=== PATIENT | male | born 1935 | race Asian ===

== ENCOUNTER 2017-07-28 13:51 | Inpatient (IN) | payer OTHER ==
[~2017-07-28] VITALS: Ht 172.7 cm; Wt 91.3 kg
[2017-07-28] MEDS ORDERED: ONDANSETRON 4 MG INJ IV STA (15:57)
[2017-07-28] MEDS ORDERED: KETOROLAC 15 MG INJ IV STA (15:57)
[2017-07-28] MEDS ORDERED: SOD CHLORIDE 0.9% 1,000 ML IV STA (15:57)
[2017-07-28 16:55] LABS: ABNORMAL IP MESSAGE 1; HEMATOCRIT 19.5 % (42.0-52.0); MEAN CORPUSCULAR HEMOGLOBIN 31.1 pg (29.0-33.0); MEAN CORPUSCULAR HGB CONC 33.8 g/dl (32.0-37.0); MEAN PLATELET VOLUME 11.7 fl (7.4-10.4); NUCLEATED RED BLOOD CELLS% 1.6 /100WBC (0.0-0.0); PLATELET COUNT 181 10^3/UL (140-415); POSITIVE DIFF @See below; RED BLOOD COUNT 2.12 10^6/ul (4.70-6.10); RED CELL DISTRIBUTION WIDTH 13.8 % (11.5-14.5); WHITE BLOOD COUNT 8.9 10^3/ul (4.8-10.8)
--- NOTE | 2017-07-28 16:59 | RADRPT ---
PROCEDURE: XR Chest. CLINICAL INDICATION: Abdominal pain . Chest pain TECHNIQUE: Single frontal chest x-ray. COMPARISON: None. FINDINGS: The lungs are clear of acute infiltrates, edema, effusions, or masses. Calcific atherosclerosis of t he aorta is present.. The cardiomediastinal silhouette is unremarkable. The osseous structures are intact. IMPRESSION: No acute cardiopulmonary disease. RPTAT: RR .Bipin Johns MD, MD Date Time Electronically viewed and signed by .Bipin Johns MD, on 07/28/2017 16:59 .L/
[2017-07-28 17:01] LABS: HEMOGLOBIN 6.6 g/dl (14.0-18.0)
[2017-07-28 17:02] LABS: PATH REVIEW? YES
--- NOTE | 2017-07-28 17:09 | RADRPT ---
PROCEDURE: XR pelvis CLINICAL INDICATION: Pelvic pain TECHNIQUE: AP portable view of the pelvis COMPARISON: None available FINDINGS: The soft tissues are unremarkable. No evidence of acute fracture or dislocation, though the proximal femurs/hips are not assessed optim ally on this single view. Spondylosis of the lower lumbar spine. Atherosclerotic vascular calcifications. IMPRESSION: 1. No evidence of acute fracture, though the proximal femurs/hips are not optimally assessed on thi s single image RPTAT: TT Physician Delmi Date Time Electronically viewed and signed by Christelle Rush Physician on 07/28/2017 17:09 JS/
--- NOTE | 2017-07-28 17:09 | ERD ---
ER Documentation Chief Complaint Chief Complaint dizziness & back pain x2 wks, denies injury HPI 81-year-old man brought in by daughter for complaints of dizziness 2 weeks and 3 days of black tarry stool, denies bright red blood per rectum. He states he fell 2 weeks ago on his low back pain as well. Patient denies dysuria, no hematuria, no fevers or chills, no weight loss, no vomiting or diarrhea. Patient denies chest pain. Patient denies history of alcoholism or other medical conditions. ROS All systems reviewed and are negative except as per history of present illness. Allergies Allergies: Coded Allergies: No Known Allergy (Unverified , 07/28/17) PMhx/Soc Hypertension, diabetes mellitus, history of TIAs Medical and Surgical Hx: pt denies Surgical Hx Hx Alcohol Use: No Hx Substance Use: No Hx Tobacco Use: No Smoking Status: Unknown if ever smoked FmHx Family History: No diabetes Physical Exam Vitals Vital Signs Date Time Temp Pulse Resp B/P Pulse Ox O2 Delivery O2 Flow Rate FiO2 07/28/17 15:51 86 24 154/64 99 Room Air 07/28/17 13:56 97.0 98 18 121/58 98 Physical Exam GENERAL: Well-developed, well-nourished, appears dehydrated, afebrile HEENT: Dry mucous membranes, pale conjunctiva, no cervical spine tenderness or step-off deformities, no goiter, no jaundice or icterus, extraocular movements intact without pain. No submandibular induration, and no pharyngeal erythema NEURO: Alert and oriented 3, cranial nerves II through XII intact bilaterally, pupils equal round reactive to light, no focal deficits or facial asymmetry, sensation intact distally Strength 5/5 in upper and lower extremities bilaterally CARDIAC: Regular rate and rhythm, no murmurs rubs or gallops LUNGS: Clear bilaterally no wheezing crackles or stridor ABDOMEN: Soft nontender, no guarding, no rigidity, no rebound, no psoas sign no obturator sign. Normoactive bowel sounds SKIN: Warm and dry to touch, no abrasions, contusions, or hematomas, no lacerations, no ecchymosis, no target lesions, and without ulcers EXTREMITIES: No clubbing cyanosis or edema, calves are bilaterally symmetrical, no Homans sign, no popliteal cord sign. Distal pulses equal and bilateral PSYCH: Normal affect without agitation or irritability Result Diagram: 07/28/17 1600 07/28/17 1600 Results 24 hrs Laboratory Tests Test 07/28/17 16:00 07/28/17 16:55 White Blood Count 8.910^3/ul Red Blood Count 2.1210^6/ul Hemoglobin 6.6g/dl Hematocrit 19.5% Mean Corpuscular Volume 92.0fl Mean Corpuscular Hemoglobin 31.1pg Mean Corpuscular Hemoglobin Concent 33.8g/dl Red Cell Distribution Width 13.8% Platelet Count 24661^3/UL Mean Platelet Volume 11.7fl Neutrophils % % Segmented Neutrophils % (Manual) 76% Band Neutrophils % (Manual) 4% Lymphocytes % % Lymphocytes % (Manual) 11% Monocytes % % Monocytes % (Manual) 6% Eosinophils % % Basophils % % Basophils % (Manual) 1% Metamyelocytes % (manual) 1% Myelocytes % (Manual) 1% Nucleated Red Blood Cells % 3% Neutrophils # 10^3/ul Neutrophils # (Manual) 6.810^3/ul Band Neutrophils # 0.310^3/ul Absolute Lymphocytes (Manual) 0.910^3/ul Lymphocytes # 10^3/ul Monocytes # 10^3/ul Absolute Monocytes (Manual) 0.510^3/ul Eosinophils # 10^3/ul Basophils # 10^3/ul Basophils # (Manual) 0.010^3/ul Metamyelocytes # 0.010^3/ul Myelocytes # 0.010^3/ul Nucleated Red Blood Cells # 10^3/ul Pathologist Review (Hematology) YES Platelet Estimate NORMAL Polychromasia 2+ Hypochromasia 1+ Anisocytosis 1+ Macrocytosis 1+ Prothrombin Time 13.6Sec Prothrombin Time Ratio 1.1 INR International Normalized Ratio 1.04 Sodium Level 134mmol/L Potassium Level 4.6mmol/L Chloride Level 100mmol/L Carbon Dioxide Level 23mmol/L Anion Gap 16 Blood Urea Nitrogen 51mg/dl Creatinine 1.24mg/dl Glucose Level 466mg/dl Calcium Level 9.0mg/dl Total Bilirubin 0.3mg/dl Direct Bilirubin 0.00mg/dl Indirect Bilirubin 0.3mg/dl Aspartate Amino Transf (AST/SGOT) 21IU/L Alanine Aminotransferase (ALT/SGPT) 32IU/L Alkaline Phosphatase 61IU/L Troponin I 1.440ng/ml Total Protein 5.8g/dl Albumin 3.1g/dl Globulin 2.70g/dl Albumin/Globulin Ratio 1.14 Lipase 129U/L Urine Color YELLOW Urine Clarity CLEAR Urine pH 5.0 Urine Specific [place] 1.017 Urine Ketones NEGATIVEmg/dL Urine Nitrite NEGATIVEmg/dL Urine Bilirubin NEGATIVEmg/dL Urine Urobilinogen NEGATIVEmg/dL Urine Leukocyte Esterase NEGATIVELeu/ul Urine Hemoglobin NEGATIVEmg/dL Urine Glucose 3+mg/dL Urine Total Protein NEGATIVEmg/dl Current Medications Medications (Trade) Dose Ordered Sig/Payal Route PRN Reason Start Time Stop Time Status Last Admin Dose Admin Sodium Chloride (NS) 1,000 ml @ 1,000 mls/hr Q1H STAT IV 07/28/17 15:57 07/28/17 16:56 DC 07/28/17 15:57 Ondansetron HCl (Zofran Inj) 4 mg ONCE STAT IV 07/28/17 15:57 07/28/17 15:59 DC 07/28/17 15:57 Ketorolac Tromethamine (Toradol) 15 mg ONCE STAT IV 07/28/17 15:57 07/28/17 16:16 DC Pantoprazole (Protonix Iv) 40 mg ONCE ONCE IV 07/28/17 17:30 07/28/17 17:31 DC 07/28/17 17:34 Procedures/MDM IV line was established patient was placed on media monitor rhythm strip revealed a sinus rhythm at about 80 bpm with upright P and T waves. Patient was afebrile EKG performed, read by me: 86 bpm, normal sinus rhythm, normal axis, no acute ST segment changes, narrow QRS complex, with good R-wave progression in precordial leads. Chest X-ray 1V Interpreted by me: Soft Tissue: No acute abnormalities Bones: No acute abnormalities Mediastinum/Cardiac Silhouette/Lungs: No acute abnormalities One view pelvis x-ray performed, read by me there are no acute fractures or dislocations noted. Three-view x-ray of the lumbar spine performed, read by me, no acute fracture or dislocations noted. I administered 1 L normal saline intravenously and Zofran 4 mg IV for dizziness. I also administered pantoprazole 40 mg IV 1 for possible hemorrhaging gastritic ulcer. CBC revealed anemia with a hemoglobin of 6.6, electrolytes revealed dehydration and uremia with a BUN/creatinine of 51/1.2, hyperglycemia 466, liver function tests are normal, troponin was positive at 1.4 I also ordered transfusion of 2 units PRBC IV over 4 hours for symptomatic anemia, patient and family refused transfusion. Critical Care: Time: 40 minutes, this was time separate from other billable procedures. Treatments/Evaluations: Close monitoring and treatment of unstable vital signs, cardiorespiratory, and neurologic status, while maintaining tight balance of fluid, respiratory, and cardiac interventions. Patient will be admitted to telemetry setting for continued medical management and GI consultation, he may require upper endoscopy to rule out hemorrhaging gastric ulcer. Patient is without complaints of chest pain and I deferred aspirin therapy at this time due to recent melena and high likelihood of bleeding gastric ulcer. Departure Diagnosis: Primary Impression: Symptomatic anemia Additional Impressions: Gastric ulcer Gastric ulcer chronicity: acute Gastric ulcer complication status: with hemorrhage Qualified Code: K25.0 - Acute gastric ulcer with hemorrhage Non-STEMI (non-ST elevated myocardial infarction) Dehydration Acute hyperglycemia Condition: Serious DEMETRIA BOLIVAR MD Jul 28, 2017 17:09
[2017-07-28 17:11] LABS: INR 1.04; PROTIME 13.6 Sec (12.2-14.2); PT RATIO 1.1
[2017-07-28 17:14] LABS: ALBUMIN 3.1 g/dl (3.3-4.9); ALBUMIN/GLOBULIN RATIO 1.14; BILIRUBIN,INDIRECT 0.3 mg/dl (0-1.1); BILIRUBIN,TOTAL 0.3 mg/dl (0.2-1.3); CREATININE 1.24 mg/dl (0.61-1.24); POTASSIUM 4.6 mmol/L (3.5-5.1); TOTAL PROTEIN 5.8 g/dl (6.1-8.1)
--- NOTE | 2017-07-28 17:15 | RADRPT ---
PROCEDURE: XR lumbar spine CLINICAL INDICATION: Pain TECHNIQUE: AP, lateral, and cone-down lateral portable views of the lumbar spine COMPARISON: AP pelvis 07/28/2017 FINDINGS: L1 vertebral body compression fracture with slight retropulsion of the posterior component is of unc ertain etiology and chronicity. Slight retrolisthesis of L4 with respect to L5. Slight retrolisthes is of L3 with respect to L III. L4-5 and L5-S1 facet arthropathy. Lower thoracic and lumbar spine spondylosis including multilevel endplate small osteophytes. Suspect diffuse demineralization of the osseous structures. Atherosclerotic vascular calcifications IMPRESSION: 1. L1 vertebral body compression fracture of uncertain etiology and chronicity. 2. Lower thoracic and lumbar spine spondylosis. Multilevel mild spondylolistheses. Compare to prior corresponding imaging studies. RPTAT: TT Physician Delmi Date Time Electronically viewed and signed by Physician Delmi on 07/28/2017 17:14 JS/
[2017-07-28 17:29] LABS: ADD UMIC NO; UR ASCORBIC ACID NEGATIVE (NEGATIVE); UR BILIRUBIN (Dip) NEGATIVE (NEGATIVE); UR BLOOD (Dip) NEGATIVE (NEGATIVE); UR CLARITY CLEAR (CLEAR); UR COLOR YELLOW (YELLOW); UR GLUCOSE (Dip) 3+ mg/dL (NEGATIVE); UR KETONES (Dip) NEGATIVE (NEGATIVE); UR LEUKOCYTE ESTERASE (Dip) NEGATIVE Leu/ul (NEGATIVE); UR NITRITE (Dip) NEGATIVE (NEGATIVE); UR SPECIFIC GRAVITY (Dip) 1.017 (1.003-1.030); UR TOTAL PROTEIN (Dip) NEGATIVE (NEGATIVE); UR UROBILINOGEN (Dip) NEGATIVE (NEGATIVE)
[2017-07-28 17:29] LABS: TROPONIN-I 1.44 ng/ml (0.00-0.12)
[2017-07-28] MEDS ORDERED: PANTOPRAZOLE 40 MG INJ IV ONE (17:30)
[2017-07-28 18:30] VITALS: BP 130/56; PULSE 88; RESP 18
[2017-07-28 18:33] LABS: ANISOCYTOSIS 1+ (0-0); BASOPHILS % (M) 1 % (0-2); ERYTHROBLAST% (NRBC) (M) 3 % (0-0); HYPOCHROMASIA 1+ (0-0); METAMYELOCYTES %M 1 % (0-0); MONOCYTES % (M) 6 % (0-11); MYELOCYTES % (M) 1 % (0-0); PLATELET ESTIMATE NORMAL; POLYCHROMASIA 2+ (0-0)
[2017-07-28 18:48] VITALS: PULSE 84
--- NOTE | 2017-07-28 19:16 | CONS ---
Date/Time of Note Date/Time of Note DATE: 07/28/17 TIME: 19:10 Assessment/Plan Assessment/Plan Chief Complaint/Hosp Course 1. NSTEMI 2. GI bleed 3. HTN 4. DM 5. Severe anemia due to above 6. dyslipidemia 7. hx TIA 8. HX of poor compliance Recommendations: Transfusion orders has been given already in the emergency room. We will hold off on aspirin not given his active GI bleed. Protonix was given. GI recommended as per internal medicine. Consider GI consultation as well. I will start the patient on carvedilol for now. Diabetic management/insulin as per internal medicine. Echocardiogram will be obtained. Follow-up with H&H. Will defer to internal medicine team. Patient currently remains chest pain-free. We will continue to monitor on telemetry We will repeat cardiac enzymes including CK and CK-MB. Thank you for his referral will continue to follow along with you. ADELFO CHOE MD [facility] Problems: Consultation Date/Type/Reason Admit Date/Time Jul 28, 2017 at 17:35 Date of Consultation: Jul 28, 2017 Type of Consultation: cardiology Reason for Consultation + trop Referring Provider: AMBER FINLEY Hx of Present Illness CC: LBP. S/P FALL HPI: Thank you for his referral. History was obtained from the patient most from discussion with his daughter who is a good historian. She also translated for me. Discussed in the physician and staff including Dr Finley. This is a pleasant 81-year-old Italian gentleman with history of diabetes who came to emergency room of complaint. Patient is apparently fell about 2 weeks ago has had lower back pain which got worse finally came to emergency room. In the emergency room he was noted to also have had melena for the past 3 days. He also complained of dizziness lightheadedness. He denies any chest pain or pressure however his troponin has been positive as well. His hemoglobin is markedly low although his blood pressures remain stable. Allergies no reported drug allergies Medication At Home: He does not remember. He has been on aspirin apparently however he is stopped it 3 days ago once he started having melena. According to the daughter patient has not been very compliant with his medication. Social history does not smoke or drink moment. Apparently he does not like to see doctors and does not go to doctors much. Family say no reported early coronary artery disease Past medical history: HTN DM HX TIA dyslipidemia ROS: As above only he denies all others. Social History Smoking Status: Unknown if ever smoked Exam/Review of Systems Vital Signs Vitals Vital Signs Date Time Temp Pulse Resp B/P Pulse Ox O2 Delivery O2 Flow Rate FiO2 07/28/17 15:51 86 24 154/64 99 Room Air 07/28/17 13:56 97.0 Exam General: obese no acute distress HEENT: NC/AT. pupils are equal. round. NECK: NO JVD. no stridor. CV: RRR. systolic murmur; no gallop or rubs. PULM: no wheezing or rhonchi. GI: SOFT, NT, ND, no rebound or guarding Extremity: trace B/L LE edema. no clubbing. neuro: awake and alert, OX3. Psych: calm and pleasant rectal: deferred DERM: Multiple diffuse ecchymosis. EG reviewed; NSR. Nonspecific ST-T wave abnormalities Results Result Diagram: 07/28/17 1600 07/28/17 1600 Results 24 hrs Laboratory Tests Test 07/28/17 16:00 07/28/17 16:55 White Blood Count 8.9 Red Blood Count 2.12 L Hemoglobin 6.6 *L Hematocrit 19.5 L Mean Corpuscular Volume 92.0 Mean Corpuscular Hemoglobin 31.1 Mean Corpuscular Hemoglobin Concent 33.8 Red Cell Distribution Width 13.8 Platelet Count 181 Mean Platelet Volume 11.7 H Neutrophils % Segmented Neutrophils % (Manual) 76 Band Neutrophils % (Manual) 4 Lymphocytes % Lymphocytes % (Manual) 11 L Monocytes % Monocytes % (Manual) 6 Eosinophils % Basophils % Basophils % (Manual) 1 Metamyelocytes % (manual) 1 H Myelocytes % (Manual) 1 H Nucleated Red Blood Cells % 3 H Neutrophils # Neutrophils # (Manual) 6.8 Band Neutrophils # 0.3 Absolute Lymphocytes (Manual) 0.9 Lymphocytes # Monocytes # Absolute Monocytes (Manual) 0.5 Eosinophils # Basophils # Basophils # (Manual) 0.0 Metamyelocytes # 0.0 Myelocytes # 0.0 Nucleated Red Blood Cells # Pathologist Review (Hematology) YES Platelet Estimate NORMAL Polychromasia 2+ Hypochromasia 1+ Anisocytosis 1+ Macrocytosis 1+ Prothrombin Time 13.6 Prothrombin Time Ratio 1.1 INR International Normalized Ratio 1.04 Sodium Level 134 L Potassium Level 4.6 Chloride Level 100 Carbon Dioxide Level 23 Anion Gap 16 Blood Urea Nitrogen 51 H Creatinine 1.24 Glucose Level 466 *H Calcium Level 9.0 Total Bilirubin 0.3 Direct Bilirubin 0.00 Indirect Bilirubin 0.3 Aspartate Amino Transf (AST/SGOT) 21 Alanine Aminotransferase (ALT/SGPT) 32 Alkaline Phosphatase 61 Troponin I 1.440 *H Total Protein 5.8 L Albumin 3.1 L Globulin 2.70 Albumin/Globulin Ratio 1.14 Lipase 129 Urine Color YELLOW Urine Clarity CLEAR Urine pH 5.0 Urine Specific [place] 1.017 Urine Ketones NEGATIVE Urine Nitrite NEGATIVE Urine Bilirubin NEGATIVE Urine Urobilinogen NEGATIVE Urine Leukocyte Esterase NEGATIVE Urine Hemoglobin NEGATIVE Urine Glucose 3+ H Urine Total Protein NEGATIVE ADELFO CHOE MD Jul 28, 2017 19:16
[2017-07-28] MEDS ORDERED: INSULIN ASPART [NOVOLOG] 3 ML PEN SC ONE (19:30)
[2017-07-28] MEDS ORDERED: GLUCOSE GEL 15 GRAM TUBE PO PRN ×2 (19:30)
[2017-07-28] MEDS ORDERED: GLUCAGON 1 MG INJ IM PRN (19:30)
[2017-07-28] MEDS ORDERED: DEXTROSE 50% 50 ML SYRINGE IV PRN ×2 (19:30)
[2017-07-28] MEDS ORDERED: GLUCOSE GEL 15 GRAM TUBE BUCCAL PRN (19:30)
--- NOTE | 2017-07-28 19:40 | HP ---
Date/Time of Note Date/Time of Note DATE: 07/28/17 TIME: 18:33 Assessment/Plan Assessment/Plan Assessment/Plan -Dizziness -Admit to telemetry floor -Cardiology consult, Dr. Cook informed -IV fluids normal saline at 50 cc/h -Symptomatic anemia-secondary to GI bleed -N.p.o. -GI consult Dr. rocha informed -PRBC transfusion -Procrit 10,000 units subcu 1 -Folic acid 125 mg daily 3 days -Gastric ulcer -Protonix 40 mg IV twice daily -Diabetes mellitus -We will give Lantus 15 units subcu nightly -NovoLog 7 units subcu 1 -NovoLog insulin mild sliding scale -SCDs for DVT prophylaxis-will hold aspirin or anticoagulant due to GI bleed -Protonix for GI prophylaxis HPI/ROS Admit Date/Time Admit Date/Time Hx of Present Illness HPI Patient speaks Latvian, daughter at the bedside used as a transportation lead. A- no home meds recorded yet 81-year-old man brought in by daughter for complaints of dizziness 2 weeks and 3 days of black tarry stool, denies bright red blood per rectum. He states he fell 2 weeks ago on his low back pain as well. Patient denies dysuria, no hematuria, no fevers or chills, no weight loss, no vomiting or diarrhea. Patient denies history of alcoholism or other medical conditions. ROS ll systems reviewed and are negative except as per history of present illness. Allergies Allergies: Coded Allergies: No Known Allergy (Unverified , 07/28/17) ROS Respiratory: no complaints Cardiovascular: no complaints Gastrointestinal: pain Genitourinary: no complaints Musculoskeletal: no complaints PMH/Family/Social Past Medical History PMhx/Soc None Medical and Surgical Hx: pt denies Surgical Hx Hx Alcohol Use: No Hx Substance Use: No Hx Tobacco Use: No Smoking Status: Unknown if ever smoked FmHx Family History: No diabetes Social History Smoking Status: Unknown if ever smoked Exam/Review of Systems Vital Signs Vitals Vital Signs Date Time Temp Pulse Resp B/P Pulse Ox O2 Delivery O2 Flow Rate FiO2 07/28/17 15:51 86 24 154/64 99 Room Air 07/28/17 13:56 97.0 Labs Result Diagram: 07/28/17 1600 07/28/17 1600 AMBER FINLEY Jul 28, 2017 18:43
[2017-07-28] MEDS ORDERED: SOD CHLORIDE 0.9% 250 ML IV* ONE (19:57)
[2017-07-28 20:00] VITALS: PULSE 82; Ht 172.7 cm; Wt 91.3 kg
[2017-07-28 20:19] VITALS: BP 130/59; RESP 16
[2017-07-28] MEDS ORDERED: EPOETIN 10000 UNITS/1 ML INJ (ESRD) SC SCH (21:00)
[2017-07-28] MEDS ORDERED: EPOETIN 10000 UNITS/1 ML INJ (ESRD) SC ONE (21:00)
[2017-07-28 21:32] LABS: CK-MB 5.57 ng/ml (0.0-2.4); TROPONIN-I 1.07 ng/ml (0.00-0.12)
[2017-07-28] MEDS: SOD FERRIC GLUC COMPLX 125 MG in SOD CHLORIDE 0.9% 100 ML IVPB SCH (22:01)
[2017-07-28] MEDS: SOD CHLORIDE 0.9% 1,000 ML IV SCH (22:02)
[2017-07-28] MEDS: INSULIN GLARGINE [LANtus] 3 ML PEN SC SCH (22:03)
[2017-07-28] MEDS: INSULIN ASPART [NOVOLOG] 3 ML PEN SC SCH (22:04)
[2017-07-29] VITALS (11 sets, daily range): BP systolic 127–142; BP diastolic 58–64; PULSE 68–92; RESP 16–18
[2017-07-29] MEDS ORDERED: ACCU-CHEK XX SCH (02:00)
[2017-07-29] MEDS: INSULIN ASPART [NOVOLOG] 3 ML PEN SC SCH ×5 (07:39→20:14)
[2017-07-29 09:27] LABS: BASOPHILS % 0.1 % (0.0-2.0); EOSINOPHILS # 0.1 10^3/ul (0.0-0.5); EOSINOPHILS % 1.6 % (0.0-7.0); HEMATOCRIT 21.1 % (42.0-52.0); HEMOGLOBIN 7.1 g/dl (14.0-18.0); LYMPHOCYTES # 1.5 10^3/ul (0.8-2.9); LYMPHOCYTES % 22.5 % (15.0-51.0); MEAN CORPUSCULAR HEMOGLOBIN 30.9 pg (29.0-33.0); MEAN CORPUSCULAR HGB CONC 33.6 g/dl (32.0-37.0); MEAN CORPUSCULAR VOLUME 91.7 fl (82.0-101.0); MEAN PLATELET VOLUME 10.9 fl (7.4-10.4); MONOCYTE # 0.8 10^3/ul (0.3-0.9); NEUTROPHIL # 4.1 10^3/ul (1.6-7.5); NEUTROPHILS % 59.8 % (39.0-77.0); NUCLEATED RED BLOOD CELLS # 0.1 10^3/ul (0.0-0.0); NUCLEATED RED BLOOD CELLS% 1.6 /100WBC (0.0-0.0); PLATELET COUNT 137 10^3/UL (140-415); RED CELL DISTRIBUTION WIDTH 14.1 % (11.5-14.5); WHITE BLOOD COUNT 6.8 10^3/ul (4.8-10.8)
[2017-07-29 09:43] LABS: INR 0.99; PARTIAL THROMBOPLASTIN TIME 28.4 Sec (25.0-35.0); PROTIME 13.1 Sec (12.2-14.2)
[2017-07-29 09:48] LABS: CK-MB 3.29 ng/ml (0.0-2.4); TROPONIN-I 1.32 ng/ml (0.00-0.12)
[2017-07-29 14:42] LABS: HEMATOCRIT 23.7 % (42.0-52.0); HEMOGLOBIN 8.1 g/dl (14.0-18.0)
--- NOTE | 2017-07-29 14:57 | PN ---
Date/Time of Note Date/Time of Note DATE: 07/29/17 TIME: 14:54 Assessment/Plan VTE Prophylaxis VTE Prophylaxis Intervention: SCD's Lines/Catheters IV [facility] Peripheral IV Urinary Cath still in place: No Assessment/Plan Chief Complaint/Hosp Course Patient is awake alert denies shortness of breath denies any chest pain. Patient's condition and plan of care discussed with patient daughter at the bedside. Pending endoscopy tomorrow in the morning. Problems: Assessment/Plan - NSTEMI. Dr. Cook is following in cardiology consultation - GI bleed. Continue Protonix. Dr. Grove is following in gastroenterology consultation. Pending endoscopy tomorrow - Anemia of acute blood loss, s/p blood transfusion. continue to monitor hemoglobin and hematocrit. - HTN - DM hemoglobin A1c 8.5. Continue NovoLog per sliding scale with Accu-Chek every 4 hours. - Dyslipidemia Further recommendations based on clinical course. Plan of care discussed with Dr. Oglesby. Exam/Review of Systems Vital Signs Vitals Vital Signs Date Time Temp Pulse Resp B/P Pulse Ox O2 Delivery O2 Flow Rate FiO2 07/29/17 13:22 71 07/29/17 07:43 98.7 18 132/61 96 07/28/17 18:30 Room Air Intake and Output 07/28/17 07/28/17 07/29/17 15:00 23:00 07:00 Intake Total 800 ml Output Total 800 ml Balance 0 ml Exam Constitutional: alert, oriented Head: normocephalic Neck: supple Respiratory: normal air movement Cardiovascular: nl pulses, regular rate and rhythm Gastrointestinal: non-tender, soft Musculoskeletal: nl extremities to inspection Extremities: normal pulses Results Result Diagram: 07/29/17 1410 07/28/17 1600 Results 24 hrs Laboratory Tests Test 07/28/17 16:00 07/28/17 16:55 07/28/17 20:13 07/28/17 21:14 White Blood Count 8.9 Red Blood Count 2.12 L Hemoglobin 6.6 *L Hematocrit 19.5 L Mean Corpuscular Volume 92.0 Mean Corpuscular Hemoglobin 31.1 Mean Corpuscular Hemoglobin Concent 33.8 Red Cell Distribution Width 13.8 Platelet Count 181 Mean Platelet Volume 11.7 H Neutrophils % Segmented Neutrophils % (Manual) 76 Band Neutrophils % (Manual) 4 Lymphocytes % Lymphocytes % (Manual) 11 L Monocytes % Monocytes % (Manual) 6 Eosinophils % Basophils % Basophils % (Manual) 1 Metamyelocytes % (manual) 1 H Myelocytes % (Manual) 1 H Nucleated Red Blood Cells % 3 H Neutrophils # Neutrophils # (Manual) 6.8 Band Neutrophils # 0.3 Absolute Lymphocytes (Manual) 0.9 Lymphocytes # Monocytes # Absolute Monocytes (Manual) 0.5 Eosinophils # Basophils # Basophils # (Manual) 0.0 Metamyelocytes # 0.0 Myelocytes # 0.0 Nucleated Red Blood Cells # Pathologist Review (Hematology) YES Platelet Estimate NORMAL Polychromasia 2+ Hypochromasia 1+ Anisocytosis 1+ Macrocytosis 1+ Prothrombin Time 13.6 Prothrombin Time Ratio 1.1 INR International Normalized Ratio 1.04 Sodium Level 134 L Potassium Level 4.6 Chloride Level 100 Carbon Dioxide Level 23 Anion Gap 16 Blood Urea Nitrogen 51 H Creatinine 1.24 Glucose Level 466 *H Calcium Level 9.0 Total Bilirubin 0.3 Direct Bilirubin 0.00 Indirect Bilirubin 0.3 Aspartate Amino Transf (AST/SGOT) 21 Alanine Aminotransferase (ALT/SGPT) 32 Alkaline Phosphatase 61 Troponin I 1.440 *H 1.070 *H Total Protein 5.8 L Albumin 3.1 L Globulin 2.70 Albumin/Globulin Ratio 1.14 Lipase 129 Urine Color YELLOW Urine Clarity CLEAR Urine pH 5.0 Urine Specific [place] 1.017 Urine Ketones NEGATIVE Urine Nitrite NEGATIVE Urine Bilirubin NEGATIVE Urine Urobilinogen NEGATIVE Urine Leukocyte Esterase NEGATIVE Urine Hemoglobin NEGATIVE Urine Glucose 3+ H Urine Total Protein NEGATIVE Creatine Kinase 52 Creatine Kinase Index 10.7 Creatinine Kinase MB (Mass) 5.57 H Bedside Glucose 256 H Test 07/29/17 02:33 07/29/17 07:39 07/29/17 07:57 07/29/17 11:40 Bedside Glucose 184 129 115 White Blood Count 6.8 # Red Blood Count 2.30 L Hemoglobin 7.1 L Hematocrit 21.1 L Mean Corpuscular Volume 91.7 Mean Corpuscular Hemoglobin 30.9 Mean Corpuscular Hemoglobin Concent 33.6 Red Cell Distribution Width 14.1 Platelet Count 137 #L Mean Platelet Volume 10.9 H Neutrophils % 59.8 Lymphocytes % 22.5 Monocytes % 11.0 Eosinophils % 1.6 Basophils % 0.1 Nucleated Red Blood Cells % 1.6 H Neutrophils # 4.1 Lymphocytes # 1.5 Monocytes # 0.8 Eosinophils # 0.1 Basophils # 0.0 Nucleated Red Blood Cells # 0.1 H Prothrombin Time 13.1 Prothrombin Time Ratio 1.0 INR International Normalized Ratio 0.99 Activated Partial Thromboplast Time 28.4 Hemoglobin A1c 8.5 H Creatine Kinase 34 Creatine Kinase Index 9.7 Creatinine Kinase MB (Mass) 3.29 H Troponin I 1.320 *H Free Thyroxine 1.16 Test 07/29/17 14:10 Hemoglobin 8.1 L Hematocrit 23.7 L Medications Medications Current Medications Sodium Chloride (NS) 1,000 ml @ 50 mls/hr Q20H IV Last administered on 22:02; Admin Dose 50 MLS/HR; Start 07/28/17 at 19:30 Diagnostic Test (Pha) (Accu-Chek) 1 ea 02 XX ; Start 07/29/17 at 02:00 Insulin Glargine 15 unit 15 unit QHS SC Last administered on 07/28/17 22:03; Admin Dose 15 UNIT; Start 07/28/17 at 21:00 Ferric Sodium Gluconate Complex/ Sodium Chloride (Ferrlecit/NS) 110 ml @ 100 mls/hr Q24H IVPB Last administered on 07/28/17 22:01; Admin Dose 100 MLS/HR; Start 07/28/17 at 21:30; Stop 07/30/17 at 22:35 Miscellaneous Information 1 ea NOTE XX ; Start 07/28/17 at 19:30 Glucose (Glutose) 15 gm Q15M PRN PO DECREASED GLUCOSE; Start 07/28/17 at 19:30 Glucose (Glutose) 22.5 gm Q15M PRN PO DECREASED GLUCOSE; Start 07/28/17 at 19: 30 Dextrose (D50w Syringe) 25 ml Q15M PRN IV DECREASED GLUCOSE; Start 07/28/17 at 19:30 Dextrose (D50w Syringe) 50 ml Q15M PRN IV DECREASED GLUCOSE; Start 07/28/17 at 19:30 Glucagon (Glucagen) 1 mg Q15M PRN IM DECREASED GLUCOSE; Start 07/28/17 at 19: 30 Glucose (Glutose) 15 gm Q15M PRN BUCCAL DECREASED GLUCOSE; Start 07/28/17 at 19:30 AKIRA ADAMS Jul 29, 2017 14:57
[2017-07-29] MEDS: SOD CHLORIDE 0.9% 1,000 ML IV SCH (15:30)
--- NOTE | 2017-07-29 17:20 | RADRPT ---
Echocardiogram Report Patient Name: RAYNA VALDIVIA Gender: Male Date: 1935 Study Date: 29-Jul-2017 Target Developer: Andrea Dunne [facility] Location: 5562 Ref. Physician: ADELFO COOK Quality: Adequate Procedures: Transthoracic echocardiogram with complete 2D, M-Mode, and doppler examination. Indications: NSTEMI. 2D/M Mode Doppler Measurement Value Normal Ranges Measurement Value Normal Ranges LVIDd 2D 5.1 3.5 - 5.6 cm AV Peak Kale 1.4 m/sec LVIDs 2D 2.3 2.1 - 4.1 cm AV Peak PG 8.0 mmHg LVPWd 2D 1.2 0.6 - 1.1 cm AI Peak PG 71.4 mmHg IVSd 2D 1.2 0.6 - 1.1 cm AI Peak Kale 4.2 m/sec AoR Diam 2D 3.4 2.0 - 3.7 cm AI PHT 337.7 msec EDV 2D 122.0 cm3 LVOT Peak Kale 1.0 m/sec ESV 2D 12.2 cm3 LVOT Peak PG 3.9 mmHg LA Dimen 2D 3.6 2.3 - 4.0 cm MV E Peak Kale 0.9 m/sec MV A Peak Kale 1.2 m/sec MV E/A 0.8 MV Decel Time 235 msec MV Decel [place] 4 MV E/A 0.8 TR Peak Kale 2.4 m/sec TR Peak PG 22.8 mmHg RVSP 33.0 mmHg Findings Left Ventricle: Normal left ventricular cavity size. Mild concentric left ventricular hypertrophy. Ejection fraction is visually estimated at 50 %. Tissue Doppler/Mitral Doppler indices are consistent with impaired relaxation (Stage I diastolic dysfunction). Multiple segmental wall motion abnormalities. These segments of the LV are hypokinetic mid anterior segment, apical anterior segment and apical septum. Right Ventricle: Normal right ventricular size. Normal right ventricular systolic function. Left Atrium: The left atrium is normal in size. Right Atrium: The right atrium is normal in size. Mitral Valve: Normal appearance of the mitral valve. Mild mitral annular calcification. Trace mitral regurgitation. Aortic Valve: Aortic valve not well visualized. No hemodynamically significant aortic stenosis by doppler. Aortic cusps appear moderately calcified. Mild aortic valve regurgitation. Tricuspid Valve: Normal appearance of the tricuspid valve. Estimated peak PA systolic pressure 33 mmHg. There is trace tricuspid regurgitation. Pulmonic Valve: Pulmonic valve not well visualized. Pericardium: Normal pericardium with no significant pericardial effusion. Aorta: Normal aortic root. IVC: Dilated IVC with respiratory collapse consistent with elevated right atrial pressure. Conclusions 1.Normal left ventricular cavity size. Mild concentric left ventricular hypertrophy. Ejection fraction is visually estimated at 50 %. Tissue Doppler/Mitral Doppler indices are consistent with impaired relaxation (Stage I diastolic dysfunction). Multiple segmental wall motion abnormalities. These segments of the LV are hypokinetic mid anterior segment, apical anterior segment. and apical septum. 2.Normal appearance of the mitral valve. Mild mitral annular calcification. Trace mitral regurgitation. 3.Aortic valve not well visualized. No hemodynamically significant aortic stenosis by doppler. Aortic cusps appear moderately calcified. Mild aortic valve regurgitation. 4.Normal appearance of the tricuspid valve. Estimated peak PA systolic pressure 33 mmHg. There is trace tricuspid regurgitation. Electronically Signed By: Adelfo Cook 29-Jul-2017 17:19:03 -0800 Patient Name: RAYNA VALDIVIA Study Date: 29-Jul-2017 [id number]
[2017-07-29] MEDS ORDERED: PEG/ELECTROLYTES 4L BTL PO ONE ×2 (19:00)
--- NOTE | 2017-07-29 19:05 | CONS ---
Date/Time of Note Date/Time of Note DATE: 07/29/17 TIME: 19:01 Consult Date/Type/Reason Admit Date/Time Jul 28, 2017 at 17:35 Initial Consult Date 07/28/17 Type of Consultation: cardiology Ordering Provider: AMBER FINLEY Subjective cardiology follow up note: S: Discussed with the staff and rhythm strip was reviewed patient remains sinus rhythm. Discussed with the patient's family including his daughter. Patient denies any active chest pain or pressure to me. Denies any active bleeding to me. Denies any palpitation to me. He has received transfusions. O: General: obese no acute distress HEENT: NC/AT. pupils are equal. round. NECK: NO JVD. no stridor. CV: RRR. systolic murmur; no gallop or rubs. PULM: no wheezing or rhonchi. GI: SOFT, NT, ND, no rebound or guarding Extremity: trace B/L LE edema. no clubbing. neuro: awake and alert, OX3. Psych: calm and pleasant rectal: deferred DERM: Multiple diffuse ecchymosis. EG reviewed; NSR. Nonspecific ST-T wave abnormalities echo reviewed; 1. Normal left ventricular cavity size. Mild concentric left ventricular hypertrophy. Ejection fraction is visually estimated at 50 %. Tissue Doppler/Mitral Doppler indices are consistent with impaired relaxation (Stage I diastolic dysfunction). Multiple segmental wall motion abnormalities. These segments of the LV are hypokinetic mid anterior segment, apical anterior segment. and apical septum. 2. Normal appearance of the mitral valve. Mild mitral annular calcification. Trace mitral regurgitation. 3. Aortic valve not well visualized. No hemodynamically significant aortic stenosis by doppler. Aortic cusps appear moderately calcified. Mild aortic valve regurgitation. 4. Normal appearance of the tricuspid valve. Estimated peak PA systolic pressure 33 mmHg. There is trace tricuspid regurgitation. Objective Vital Signs Date Time Temp Pulse Resp B/P Pulse Ox O2 Delivery O2 Flow Rate FiO2 07/29/17 16:38 68 07/29/17 16:00 97.8 18 142/63 95 Room Air Intake and Output 07/28/17 07/28/17 07/29/17 15:00 23:00 07:00 Intake Total 800 ml Output Total 800 ml Balance 0 ml Results/Medications Result Diagram: 07/29/17 1410 07/28/17 1600 Results 24 hrs Laboratory Tests Test 07/28/17:13 07/28/17 21:14 07/29/17 02:33 07/29/17 07:39 Creatine Kinase 52 Creatine Kinase Index 10.7 Creatinine Kinase MB (Mass) 5.57 H Troponin I 1.070 *H Bedside Glucose 256 H 184 129 Test 07/29/17 07:57 07/29/17 11:40 07/29/17 14:10 07/29/17 17:08 White Blood Count 6.8 # Red Blood Count 2.30 L Hemoglobin 7.1 L 8.1 L Hematocrit 21.1 L 23.7 L Mean Corpuscular Volume 91.7 Mean Corpuscular Hemoglobin 30.9 Mean Corpuscular Hemoglobin Concent 33.6 Red Cell Distribution Width 14.1 Platelet Count 137 #L Mean Platelet Volume 10.9 H Neutrophils % 59.8 Lymphocytes % 22.5 Monocytes % 11.0 Eosinophils % 1.6 Basophils % 0.1 Nucleated Red Blood Cells % 1.6 H Neutrophils # 4.1 Lymphocytes # 1.5 Monocytes # 0.8 Eosinophils # 0.1 Basophils # 0.0 Nucleated Red Blood Cells # 0.1 H Prothrombin Time 13.1 Prothrombin Time Ratio 1.0 INR International Normalized Ratio 0.99 Activated Partial Thromboplast Time 28.4 Hemoglobin A1c 8.5 H Creatine Kinase 34 Creatine Kinase Index 9.7 Creatinine Kinase MB (Mass) 3.29 H Troponin I 1.320 *H Free Thyroxine 1.16 Bedside Glucose 115 90 Medications Current Medications Sodium Chloride (NS) 1,000 ml @ 50 mls/hr Q20H IV Last administered on 22:02; Admin Dose 50 MLS/HR; Start 07/28/17 at 19:30 Insulin Glargine 15 unit 15 unit QHS SC Last administered on 07/28/17 22:03; Admin Dose 15 UNIT; Start 07/28/17 at 21:00 Ferric Sodium Gluconate Complex/ Sodium Chloride (Ferrlecit/NS) 110 ml @ 100 mls/hr Q24H IVPB Last administered on 07/28/17 22:01; Admin Dose 100 MLS/HR; Start 07/28/17 at 21:30; Stop 07/30/17 at 22:35 Miscellaneous Information 1 ea NOTE XX ; Start 07/28/17 at 19:30 Glucose (Glutose) 15 gm Q15M PRN PO DECREASED GLUCOSE; Start 07/28/17 at 19:30 Glucose (Glutose) 22.5 gm Q15M PRN PO DECREASED GLUCOSE; Start 07/28/17 at 19: 30 Dextrose (D50w Syringe) 25 ml Q15M PRN IV DECREASED GLUCOSE; Start 07/28/17 at 19:30 Dextrose (D50w Syringe) 50 ml Q15M PRN IV DECREASED GLUCOSE; Start 07/28/17 at 19:30 Glucagon (Glucagen) 1 mg Q15M PRN IM DECREASED GLUCOSE; Start 07/28/17 at 19: 30 Glucose (Glutose) 15 gm Q15M PRN BUCCAL DECREASED GLUCOSE; Start 07/28/17 at 19:30 Polyethylene Glycol/ Electrolytes 4000 ml 4,000 ml ONCE ONCE PO ; Start at 19:00; Stop 07/29/17 at 19:01 Potassium Chloride/Dextrose/ Sod Cl (D5-NS + KCl 20 Meq) 1,000 ml @ 70 mls/hr [id number] IV ; Start 07/29/17 at 19:00 Miscellaneous Information (* Miscellaneous Pharmacy Order) Discontinue current oral sulfonylur... ONCE ONCE XX ; Start 07/29/17 at 19:00; Stop 07/29/17 at 19:01 Diagnostic Test (Pha) (Accu-Chek) 1 ea 02 XX ; Start 07/30/17 at 02:00 Miscellaneous Information (* Miscellaneous Pharmacy Order) HYPOGLYCEMIA PROTOCOL w... ONCE ONCE XX ; Start 07/29/17 at 19:00; Stop 07/29/17 at 19:01 Insulin Aspart (Novolog Insulin Pen) NOVOLOG *MILD* ALGORITHM Q4 SC ; Start at 21:00 Miscellaneous Information (* Miscellaneous Pharmacy Order) Discontinue all previ... ONCE ONCE XX ; Start 07/29/17 at 19:00; Stop 07/29/17 at 19:01 Pantoprazole (Protonix Iv) 40 mg BID@06,18 IV ; Start 07/30/17 at 06:00 Assessment/Plan Chief Complaint/Hosp Course 1. NSTEMI 2. GI bleed 3. HTN 4. DM 5. Severe anemia due to above 6. dyslipidemia 7. hx TIA 8. HX of poor compliance Recommendations: s/p transfusion. We will hold off on aspirin now, given his active GI bleed. Protonix was given. f/u with GI consultation as well. I will start the patient on carvedilol and lipitor for now. Diabetic management/insulin as per internal medicine. Echocardiogram reviewed. Follow-up with H&H. Will defer to internal medicine team. Patient currently remains chest pain-free. We will continue to monitor on telemetry We will repeat cardiac enzymes including CK and CK-MB. pt is at moderate to high risk for endoscopy but no further cardiac work up would be indicated at this time prior to the needed procedure. Thank you for his referral will continue to follow along with you. ADELFO CHOE MD [facility] Problems: ADELFO CHOE MD Jul 29, 2017 19:05
--- NOTE | 2017-07-29 19:39 | CONS ---
DATE OF ADMISSION: 07/28/2017 DATE OF CONSULTATION: 07/29/2017 TYPE OF CONSULTATION: Gastroenterology. Dear Dr. Kan: Thank you for asking me to see Mr. Marsh in GI consultation. HISTORY OF PRESENT ILLNESS: The patient, as you know, he is a 81-year-old [place] gentleman. He is admitted to the hospital because of severe anemia. His hemoglobin was 6.2. No history of vomiti ng blood or passing blood from the rectum. Apparently prior to the admission, he developed dizzines s, which he has been experiencing for 2 weeks, and also 3 day history of black stools. Denies any b right red blood from the rectum. He also has a history of a fall several weeks ago and he hurt his low back. He has no history of other gastrointestinal complaints. REVIEW OF SYSTEM: History of medical conditions as I mentioned above. Also, please refer to the hi story and physical. MEDICATIONS PRIOR TO THE ADMISSION: Please refer to the notes. PHYSICAL EXAMINATION: GENERAL: The patient is a 81-year-old [place] gentleman who at this time is alert, but he is not very oriented. VITAL SIGNS: Temperature 97.8, pulse is 68, blood pressure is 142/63. CARDIOVASCULAR: Normal heart sounds. RESPIRATORY: Normal breath sounds. ABDOMEN: Showed unremarkable findings. LABORATORY WORKUP: The hemoglobin was 6.6 yesterday, today is 8.1, WBC 6800. The chemistry shows that CPK is 34. Troponin is 1.320, which is high. Free T4 is 1.16. Chest x-ray showed no acute process. CLINICAL IMPRESSION: 1. The patient presenting with severe anemia, rule out gastrointestinal causes, including peptic ul cer disease, gastrointestinal malignancy, arteriovenous malformation of the gastrointestinal tract. 2. History of fall, history of dizziness. He has got elevated troponin, possibility that he has a non-ST elevation myocardial infarction. PLAN: He needs upper endoscopy, lower endoscopy. Recommend Protonix. Endoscopy will be performed if it is cleared by the lithographic photographer apprentice. Once again, doctor, thank you for this consultation. Dictated By: JULIO OLMOS/NTS Conf#: [id number] DID#: [id number] CC: ASHOK KAN MD;*EndCC*
[2017-07-29] MEDS: D5-NS + KCL 20 MEQ 1,000 ML IV SCH (20:10)
[2017-07-29] MEDS: ATORVASTATIN 80 MG TAB PO SCH (20:13)
[2017-07-29] MEDS: INSULIN GLARGINE [LANtus] 3 ML PEN SC SCH (20:19)
[2017-07-29 20:41] LABS: INR 1.03; PROTIME 13.5 Sec (12.2-14.2); PT RATIO 1.1
[2017-07-29 20:42] LABS: PARTIAL THROMBOPLASTIN TIME 26.7 Sec (25.0-35.0)
[2017-07-29] MEDS: SOD FERRIC GLUC COMPLX 125 MG in SOD CHLORIDE 0.9% 100 ML IVPB SCH (21:46)
[2017-07-30] VITALS (16 sets, daily range): BP systolic 111–160; BP diastolic 52–101; PULSE 71–88; RESP 11–30
[2017-07-30] MEDS: INSULIN ASPART [NOVOLOG] 3 ML PEN SC SCH ×9 (00:50→22:29)
[2017-07-30] MEDS: ACCU-CHEK XX SCH (01:55)
[2017-07-30] MEDS: PANTOPRAZOLE 40 MG INJ IV SCH ×2 (05:47→17:53)
--- NOTE | 2017-07-30 08:54 | CONS ---
Date/Time of Note Date/Time of Note DATE: 07/30/17 TIME: 08:50 Consult Date/Type/Reason Admit Date/Time Jul 28, 2017 at 17:35 Initial Consult Date 07/28/17 Type of Consultation: cardiology Ordering Provider: AMBER FINLEY Subjective cardiology follow up note: S: Discussed with the staff and rhythm strip was reviewed patient remains sinus rhythm. Discussed with Dr Grove. the patient's family including his daughter. Patient denies any active chest pain or pressure to me. Denies any active bleeding to me. Denies any palpitation to me. O: General: obese no acute distress HEENT: NC/AT. pupils are equal. round. NECK: NO JVD. no stridor. CV: RRR. systolic murmur; no gallop or rubs. PULM: no wheezing or rhonchi. GI: SOFT, NT, ND, no rebound or guarding Extremity: trace B/L LE edema. no clubbing. neuro: awake and alert, OX3. Psych: calm and pleasant rectal: deferred DERM: Multiple diffuse ecchymosis. EG reviewed; NSR. Nonspecific ST-T wave abnormalities echo reviewed; 1. Normal left ventricular cavity size. Mild concentric left ventricular hypertrophy. Ejection fraction is visually estimated at 50 %. Tissue Doppler/Mitral Doppler indices are consistent with impaired relaxation (Stage I diastolic dysfunction). Multiple segmental wall motion abnormalities. These segments of the LV are hypokinetic mid anterior segment, apical anterior segment. and apical septum. 2. Normal appearance of the mitral valve. Mild mitral annular calcification. Trace mitral regurgitation. 3. Aortic valve not well visualized. No hemodynamically significant aortic stenosis by doppler. Aortic cusps appear moderately calcified. Mild aortic valve regurgitation. 4. Normal appearance of the tricuspid valve. Estimated peak PA systolic pressure 33 mmHg. There is trace tricuspid regurgitation. Objective Vital Signs Date Time Temp Pulse Resp B/P Pulse Ox O2 Delivery O2 Flow Rate FiO2 07/30/17 08:24 74 07/30/17 07:30 97.9 16 134/65 97 07/29/17 16:00 Room Air Intake and Output 07/29/17 07/29/17 07/30/17 15:00 23:00 07:00 Intake Total 750 ml 770 ml Output Total 760 ml 900 ml Balance -10 ml -130 ml Results/Medications Result Diagram: 07/29/17 1410 07/28/17 1600 Results 24 hrs Laboratory Tests Test 07/29/17 11:40 07/29/17 14:10 07/29/17 17:08 07/29/17 19:55 Bedside Glucose 115 90 Hemoglobin 8.1 L Hematocrit 23.7 L Prothrombin Time 13.5 Prothrombin Time Ratio 1.1 INR International Normalized Ratio 1.03 Activated Partial Thromboplast Time 26.7 Test 07/29/17 20:09 07/30/17 00:49 07/30/17 05:45 07/30/17 08:30 Bedside Glucose 78 88 95 107 Medications Current Medications Sodium Chloride (NS) 1,000 ml @ 50 mls/hr Q20H IV Last administered on 22:02; Admin Dose 50 MLS/HR; Start 07/28/17 at 19:30 Insulin Glargine 15 unit 15 unit QHS SC Last administered on 07/29/17 20:19; Admin Dose 15 UNIT; Start 07/28/17 at 21:00 Ferric Sodium Gluconate Complex/ Sodium Chloride (Ferrlecit/NS) 110 ml @ 100 mls/hr Q24H IVPB Last administered on 07/29/17 21:46; Admin Dose 100 MLS/HR; Start 07/28/17 at 21:30; Stop 07/30/17 at 22:35 Miscellaneous Information 1 ea NOTE XX ; Start 07/28/17 at 19:30 Glucose (Glutose) 15 gm Q15M PRN PO DECREASED GLUCOSE; Start 07/28/17 at 19:30 Glucose (Glutose) 22.5 gm Q15M PRN PO DECREASED GLUCOSE; Start 07/28/17 at 19: 30 Dextrose (D50w Syringe) 25 ml Q15M PRN IV DECREASED GLUCOSE; Start 07/28/17 at 19:30 Dextrose (D50w Syringe) 50 ml Q15M PRN IV DECREASED GLUCOSE; Start 07/28/17 at 19:30 Glucagon (Glucagen) 1 mg Q15M PRN IM DECREASED GLUCOSE; Start 07/28/17 at 19: 30 Glucose 15 gm 15 gm Q15M PRN BUCCAL DECREASED GLUCOSE; Start 07/28/17 at 19:30 Potassium Chloride/Dextrose/ Sod Cl (D5-NS + KCl 20 Meq) 1,000 ml @ 70 mls/hr [id number] IV Last administered on 07/29/17 20:10; Admin Dose 70 MLS/HR; Start 07/29/17 at 19:00 Diagnostic Test (Pha) (Accu-Chek) 1 ea 02 XX ; Start 07/30/17 at 02:00 Insulin Aspart (Novolog Insulin Pen) NOVOLOG *MILD* ALGORITHM Q4 SC ; Start at 21:00 Pantoprazole (Protonix Iv) 40 mg BID@06,18 IV Last administered on 07/30/17 05:47; Admin Dose 40 MG; Start 07/30/17 at 06:00 Carvedilol (Coreg) 6.25 mg BID PO Last administered on 07/29/17 20:13; Admin Dose 6.25 MG; Start 07/29/17 at 21:00 Atorvastatin Calcium (Lipitor) 80 mg HS PO Last administered on 07/29/17 20: 13; Admin Dose 80 MG; Start 07/29/17 at 21:00 Assessment/Plan Chief Complaint/Hosp Course 1. NSTEMI 2. GI bleed 3. HTN 4. DM 5. Severe anemia due to above 6. dyslipidemia 7. hx TIA 8. HX of poor compliance 9. CV preop evaluation for EGD Recommendations: s/p transfusion. We will hold off on aspirin now, given his active GI bleed until GI work up is done and ok from GI stand point Protonix was given. f/u with GI consultation as well. I will CONT the patient on carvedilol and lipitor for now. Diabetic management/insulin as per internal medicine. Echocardiogram reviewed. Follow-up with H&H. Will defer to internal medicine team. Patient currently remains chest pain-free. We will continue to monitor on telemetry pt is at moderate to high risk for EGD but no further cardiac work up would be indicated at this time prior to the needed procedure. I agree that given his severe anemia and active GI bleed, benefits of EGD is more than potential risk. Thank you for his referral will continue to follow along with you. ADELFO CHOE MD [facility] Problems: ADELFO CHOE MD Jul 30, 2017 08:54
[2017-07-30 09:13] LABS: ABNORMAL IP MESSAGE 1; BASOPHILS % 0.4 % (0.0-2.0); EOSINOPHILS # 0.2 10^3/ul (0.0-0.5); EOSINOPHILS % 3.4 % (0.0-7.0); HEMOGLOBIN 8.7 g/dl (14.0-18.0); LYMPHOCYTES # 1.1 10^3/ul (0.8-2.9); LYMPHOCYTES % 21.6 % (15.0-51.0); MEAN CORPUSCULAR HEMOGLOBIN 30.5 pg (29.0-33.0); MEAN CORPUSCULAR HGB CONC 33.5 g/dl (32.0-37.0); MEAN CORPUSCULAR VOLUME 91.2 fl (82.0-101.0); MEAN PLATELET VOLUME 10.3 fl (7.4-10.4); MONOCYTE # 0.6 10^3/ul (0.3-0.9); MONOCYTES % 10.4 % (0.0-11.0); NEUTROPHILS % 57.4 % (39.0-77.0); NUCLEATED RED BLOOD CELLS # 0.1 10^3/ul (0.0-0.0); NUCLEATED RED BLOOD CELLS% 2.7 /100WBC (0.0-0.0); PLATELET COUNT 119 10^3/UL (140-415); POSITIVE DIFF @See below; RED BLOOD COUNT 2.85 10^6/ul (4.70-6.10); RED CELL DISTRIBUTION WIDTH 16.5 % (11.5-14.5); WHITE BLOOD COUNT 5.3 10^3/ul (4.8-10.8)
[2017-07-30 09:28] LABS: ALBUMIN 2.4 g/dl (3.3-4.9); ALBUMIN/GLOBULIN RATIO 0.92; BILIRUBIN,INDIRECT 0.8 mg/dl (0-1.1); BILIRUBIN,TOTAL 0.8 mg/dl (0.2-1.3); CALCIUM 8.2 mg/dl (8.4-10.2); CREATININE 1.1 mg/dl (0.61-1.24); POTASSIUM 4.1 mmol/L (3.5-5.1)
[2017-07-30] MEDS: D5-NS + KCL 20 MEQ 1,000 ML IV SCH (09:28)
[2017-07-30 10:01] LABS: CREATINE KINASE < 20 IU/L (23-200)
[2017-07-30 10:15] LABS: CK-MB 1.68 ng/ml (0.0-2.4); TROPONIN-I 0.657 ng/ml (0.00-0.12)
[2017-07-30 10:49] LABS: CALCIUM 7.9 mg/dl (8.4-10.2); CHOL/HDL RATIO 5.2 RATIO; CREATININE 1.09 mg/dl (0.61-1.24); POTASSIUM 3.9 mmol/L (3.5-5.1)
[2017-07-30] MEDS: SOD CHLORIDE 0.9% 1,000 ML IV SCH ×2 (11:30→22:15)
[2017-07-30] MEDS ORDERED: LIDOCAINE 4% SOLUTION 50 ML BTL ONE (12:22)
[2017-07-30] MEDS ORDERED: MIDAZOLAM 1 MG/ML 2 ML INJ ONE ×2 (12:22→12:33)
[2017-07-30] MEDS ORDERED: ONDANSETRON 4 MG INJ IV PRN (12:30)
[2017-07-30] MEDS ORDERED: ETOMIDATE 20 MG INJ ONE (12:32)
--- NOTE | 2017-07-30 12:49 | OPPN ---
Date/Time of Note Date/Time of Note DATE: 07/30/17 TIME: 12:45 Proc Note GI Procedure Date 07/30/17 Indication: diagnostic Pre-procedure Diagnosis ugi bleeding Post-procedure Diagnosis pre pyloric ulcer Procedure Performed: Endoscopy Surgeon see signature line Satellite Installation Technician none Anesthesia Type: MAC Tourniquet Time none EBL none Transfusion required none Biopsy 1: gastric ulcer and ulcer bx Grafts/Implants none Tubes/Drains none Complication(s) none Disposition: PACU Procedure Description egd done under mac pre pyloric ulcer obe bx done 3 clips applied to prevent bleeding and help healing JULIO KING MD Jul 30, 2017 12:49
--- NOTE | 2017-07-30 16:58 | PN ---
Date/Time of Note Date/Time of Note DATE: 07/30/17 TIME: 16:56 Assessment/Plan VTE Prophylaxis VTE Prophylaxis Intervention: SCD's Lines/Catheters IV C[facility]ter Type [facility] Peripheral IV Urinary Cath still in place: No Assessment/Plan Chief Complaint/Hosp Course Patient is status post upper endoscopy today, denies any chest pain. Assessment/Plan - NSTEMI. Dr. Cook is following in cardiology consultation - GI bleed. Prepyloric ulcer per EGD. continue Protonix. Dr. Grove is following in gastroenterology consultation. - Anemia of acute blood loss, s/p blood transfusion. continue to monitor hemoglobin and hematocrit. - HTN - DM hemoglobin A1c 8.5. Continue NovoLog per sliding scale with Accu-Chek every 4 hours. - Dyslipidemia Further recommendations based on clinical course. Plan of care discussed with Dr. Oglesby. Problems: Exam/Review of Systems Vital Signs Vitals Vital Signs Date Time Temp Pulse Resp B/P Pulse Ox O2 Delivery O2 Flow Rate FiO2 07/30/17 15:57 98.0 90 17 142/68 97 07/30/17 13:27 Room Air 07/30/17 12:15 2 Intake and Output 07/29/17 07/29/17 07/30/17 15:00 23:00 07:00 Intake Total 750 ml 770 ml Output Total 760 ml 900 ml Balance -10 ml -130 ml Exam Constitutional: alert, oriented Head: normocephalic Neck: supple Respiratory: normal air movement Cardiovascular: nl pulses, regular rate and rhythm Gastrointestinal: non-tender, soft Musculoskeletal: nl extremities to inspection Extremities: normal pulses Results Result Diagram: 07/30/17 0850 07/30/17 0850 Results 24 hrs Laboratory Tests Test 07/29/17 17:08 07/29/17 19:55 07/29/17 20:09 07/30/17 00:49 Bedside Glucose 90 78 88 Prothrombin Time 13.5 Prothrombin Time Ratio 1.1 INR International Normalized Ratio 1.03 Activated Partial Thromboplast Time 26.7 Test 07/30/17 05:45 07/30/17 08:30 07/30/17 08:50 07/30/17 12:24 Bedside Glucose 95 107 98 White Blood Count 5.3 # Red Blood Count 2.85 #L Hemoglobin 8.7 L Hematocrit 26.0 L Mean Corpuscular Volume 91.2 Mean Corpuscular Hemoglobin 30.5 Mean Corpuscular Hemoglobin Concent 33.5 Red Cell Distribution Width 16.5 H Platelet Count 119 L Mean Platelet Volume 10.3 Neutrophils % 57.4 Lymphocytes % 21.6 Monocytes % 10.4 Eosinophils % 3.4 Basophils % 0.4 Nucleated Red Blood Cells % 2.7 H Neutrophils # 3.0 Lymphocytes # 1.1 Monocytes # 0.6 Eosinophils # 0.2 Basophils # 0.0 Nucleated Red Blood Cells # 0.1 H Sodium Level 143 Potassium Level 4.1 Chloride Level 112 H Carbon Dioxide Level 28 Anion Gap 7 L Blood Urea Nitrogen 22 H Creatinine 1.10 Glucose Level 94 Calcium Level 8.2 L Total Bilirubin 0.8 Direct Bilirubin 0.00 Indirect Bilirubin 0.8 Aspartate Amino Transf (AST/SGOT) 23 Alanine Aminotransferase (ALT/SGPT) 42 Alkaline Phosphatase 54 Creatine Kinase < 20 L Creatine Kinase Index Creatinine Kinase MB (Mass) 1.68 Troponin I 0.657 *H Total Protein 5.0 L Albumin 2.4 L Globulin 2.60 Albumin/Globulin Ratio 0.92 Triglycerides Level 163 H Cholesterol Level 169 LDL Cholesterol, Calculated 104 HDL Cholesterol 32 Cholesterol/HDL Ratio 5.2 Test 07/30/17 13:22 Bedside Glucose 89 Medications Medications Current Medications Sodium Chloride (NS) 1,000 ml @ 50 mls/hr Q20H IV Last administered on 22:02; Admin Dose 50 MLS/HR; Start 07/28/17 at 19:30 Insulin Glargine 15 unit 15 unit QHS SC Last administered on 07/29/17 20:19; Admin Dose 15 UNIT; Start 07/28/17 at 21:00 Ferric Sodium Gluconate Complex/ Sodium Chloride (Ferrlecit/NS) 110 ml @ 100 mls/hr Q24H IVPB Last administered on 07/29/17 21:46; Admin Dose 100 MLS/HR; Start 07/28/17 at 21:30; Stop 07/30/17 at 22:35 Miscellaneous Information 1 ea NOTE XX ; Start 07/28/17 at 19:30 Glucose (Glutose) 15 gm Q15M PRN PO DECREASED GLUCOSE; Start 07/28/17 at 19:30 Glucose (Glutose) 22.5 gm Q15M PRN PO DECREASED GLUCOSE; Start 07/28/17 at 19: 30 Dextrose (D50w Syringe) 25 ml Q15M PRN IV DECREASED GLUCOSE; Start 07/28/17 at 19:30 Dextrose (D50w Syringe) 50 ml Q15M PRN IV DECREASED GLUCOSE; Start 07/28/17 at 19:30 Glucagon (Glucagen) 1 mg Q15M PRN IM DECREASED GLUCOSE; Start 07/28/17 at 19: 30 Glucose 15 gm 15 gm Q15M PRN BUCCAL DECREASED GLUCOSE; Start 07/28/17 at 19:30 Potassium Chloride/Dextrose/ Sod Cl (D5-NS + KCl 20 Meq) 1,000 ml @ 70 mls/hr [id number] IV Last administered on 07/30/17 09:28; Admin Dose 70 MLS/HR; Start 07/29/17 at 19:00 Diagnostic Test (Pha) (Accu-Chek) 1 ea 02 XX ; Start 07/30/17 at 02:00 Insulin Aspart (Novolog Insulin Pen) NOVOLOG *MILD* ALGORITHM Q4 SC ; Start at 21:00 Pantoprazole (Protonix Iv) 40 mg BID@06,18 IV Last administered on 07/30/17 05:47; Admin Dose 40 MG; Start 07/30/17 at 06:00 Carvedilol (Coreg) 6.25 mg BID PO Last administered on 07/29/17 20:13; Admin Dose 6.25 MG; Start 07/29/17 at 21:00 Atorvastatin Calcium (Lipitor) 80 mg HS PO Last administered on 07/29/17 20: 13; Admin Dose 80 MG; Start 07/29/17 at 21:00 AKIRA ADAMS Jul 30, 2017 16:58
--- NOTE | 2017-07-30 19:36 | GILP ---
DATE OF PROCEDURE: 07/30/2017 PROCEDURE: Esophagogastroduodenoscopy. PREOPERATIVE DIAGNOSES: Patient presenting with history of anemia, hemoglobin 6 grams and he has hi story of melenic stool, rule out peptic ulcer disease. POSTOPERATIVE DIAGNOSES: A 1 cm ulcer noted with stigmata of bleeding in the prepyloric area, only 1 biopsy was done and 3 Hemoclips were applied to prevent further bleeding and to help healing proce ss. DESCRIPTION OF PROCEDURE: After the informed written consent was obtained, the patient was asked to lie on the left lateral side. Intravenous anesthesia was given by anesthesiologist, Dr. Pappas. Whe n the patient became somnolent, Olympus upper endoscope was introduced into the oropharynx, then int o the esophagus. Esophagus appeared normal with no mucosal abnormality. Endoscope at this time was advanced into the stomach. Stomach showed evidence of a 1 cm elliptical ulcer in the prepyloric ar ea, only 1 biopsy was done to rule out malignancy. Three Hemoclips were applied to prevent further bleeding and to help healing process. Rest of the stomach showed minimal gastritis. Duodenum appea red normal. Endoscope at this time was withdrawn. Biopsy was done from the antrum, lesser curvatur e and the fundus to rule out H. pylori infection. Scope at this time was withdrawn and the procedur e was terminated. PLAN: Recommend proton pump inhibitor therapy to be continued. Dictated By: JULIO OLMOS/URIEL Conf#: [id number] DID#: [id number] CC: ASHOK KAN MD;*EndCC*
[2017-07-30] MEDS: SOD FERRIC GLUC COMPLX 125 MG in SOD CHLORIDE 0.9% 100 ML IVPB SCH (22:15)
[2017-07-30] MEDS: ATORVASTATIN 80 MG TAB PO SCH (22:15)
[2017-07-30] MEDS: INSULIN GLARGINE [LANtus] 3 ML PEN SC SCH (22:30)
[2017-07-31] MEDS: ACCU-CHEK XX SCH (02:00)
[2017-07-31 02:16] VITALS: BP 108/58; RESP 20
[2017-07-31 06:11] LABS: BASOPHILS % 0.2 % (0.0-2.0); EOSINOPHILS # 0.1 10^3/ul (0.0-0.5); EOSINOPHILS % 3.1 % (0.0-7.0); HEMATOCRIT 24.2 % (42.0-52.0); HEMOGLOBIN 8.2 g/dl (14.0-18.0); LYMPHOCYTES % 22.6 % (15.0-51.0); MEAN CORPUSCULAR HEMOGLOBIN 30.8 pg (29.0-33.0); MEAN CORPUSCULAR HGB CONC 33.9 g/dl (32.0-37.0); MEAN PLATELET VOLUME 10.3 fl (7.4-10.4); MONOCYTE # 0.6 10^3/ul (0.3-0.9); MONOCYTES % 12.3 % (0.0-11.0); NEUTROPHIL # 2.6 10^3/ul (1.6-7.5); NEUTROPHILS % 57.8 % (39.0-77.0); NUCLEATED RED BLOOD CELLS% 0.9 /100WBC (0.0-0.0); PLATELET COUNT 107 10^3/UL (140-415); RED BLOOD COUNT 2.66 10^6/ul (4.70-6.10); RED CELL DISTRIBUTION WIDTH 16.4 % (11.5-14.5); WHITE BLOOD COUNT 4.5 10^3/ul (4.8-10.8)
[2017-07-31] MEDS: PANTOPRAZOLE 40 MG INJ IV SCH (06:24)
[2017-07-31 06:33] LABS: CALCIUM 7.7 mg/dl (8.4-10.2); CREATININE 1.13 mg/dl (0.61-1.24); POTASSIUM 3.9 mmol/L (3.5-5.1)
[2017-07-31] MEDS: INSULIN ASPART [NOVOLOG] 3 ML PEN SC SCH ×4 (07:54→21:00)
[2017-07-31 07:59] VITALS: BP 124/58; RESP 20
[2017-07-31] MEDS ORDERED: ALBUTEROL/IPRATROPIUM (NEB) 3 ML AMP HHN PRN (09:30)
[2017-07-31] MEDS ORDERED: METHYLPREDNISOLONE 40 MG INJ IV SCH (09:30)
[2017-07-31] MEDS ORDERED: FUROSEMIDE 40 MG INJ IV ONE (09:30)
[2017-07-31] MEDS: ALBUTEROL/IPRATROPIUM (NEB) 3 ML AMP HHN SCH ×3 (10:07→19:54)
--- NOTE | 2017-07-31 10:07 | RADRPT ---
PROCEDURE: XR Chest. CLINICAL INDICATION: Wheezing and shortness of breath. TECHNIQUE: Single frontal view. COMPARISON: 07/28/2017. FINDINGS: The lungs are clear. The heart size is normal. There is calcification in the aorta consistent with atherosclerosis. There is no pleural effusion. There is no pneumothorax. IMPRESSION: 1. Atherosclerosis. 2. Otherwise unremarkable chest radiograph. RPTAT: QQ .Loco Hernandez MD, MD Date Time Electronically viewed and signed by .Loco Hernandez MD, MD on 07/31/2017 10:07 .R/
[2017-07-31] MEDS: ACETAMINOPHEN 500 MG TAB PO PRN (11:12)
--- NOTE | 2017-07-31 12:51 | PN ---
Date/Time of Note Date/Time of Note DATE: 07/31/17 TIME: 12:49 Assessment/Plan VTE Prophylaxis VTE Prophylaxis Intervention: other Lines/Catheters IV [facility]from [facility]): Peripheral IV Urinary Cath still in place: No Assessment/Plan Assessment/Plan - NSTEMI. Dr. Cook is following in cardiology consultation - GI bleed. Prepyloric ulcer per EGD. continue Protonix. - Dr. Grove is following in gastroenterology consultation. - Patient is status post upper endoscopy yesterday - Anemia of acute blood loss, s/p blood transfusion. continue to monitor hemoglobin and hematocrit. - HTN - DM hemoglobin A1c 8.5. Continue NovoLog per sliding scale with Accu-Chek every 4 hours. - Dyslipidemia Further recommendations based on clinical course. Plan of care discussed with Dr. Oglesby. Subjective 24 Hr Interval Summary Free Text/Dictation sitting up in chair, having lunch, denies any complaints, dw staff ENT: no complaints Respiratory: no complaints Cardiovascular: no complaints Gastrointestinal: no complaints Genitourinary: no complaints Musculoskeletal: no complaints Exam/Review of Systems Vital Signs Vitals Vital Signs Date Time Temp Pulse Resp B/P Pulse Ox O2 Delivery O2 Flow Rate FiO2 07/31/17 10:08 86 18 97 21 07/31/17 07:59 98.1 124/58 07/30/17 13:27 Room Air 07/30/17 12:15 2 Intake and Output 07/30/17 07/30/17 07/31/17 15:00 23:00 07:00 Intake Total 500 ml 1060 ml Output Total 300 ml 1000 ml Balance 200 ml 60 ml Exam Constitutional: alert, oriented, well developed Respiratory: diminished breath sounds, normal air movement Cardiovascular: nl pulses Gastrointestinal: non-tender, soft Musculoskeletal: nl extremities to inspection Extremities: normal pulses Neurological: other Results Result Diagram: 07/31/17 0531 07/31/1731 Results 24 hrs Laboratory Tests Test 07/30/17 13:22 07/30/17 17:40 07/30/17 22:11 07/31/17 02:25 Bedside Glucose 89 242 H 188 108 Test 07/31/17 05:31 07/31/17 07:46 07/31/17 07:53 07/31/17 12:06 White Blood Count 4.5 L Red Blood Count 2.66 L Hemoglobin 8.2 L Hematocrit 24.2 L Mean Corpuscular Volume 91.0 Mean Corpuscular Hemoglobin 30.8 Mean Corpuscular Hemoglobin Concent 33.9 Red Cell Distribution Width 16.4 H Platelet Count 107 L Mean Platelet Volume 10.3 Neutrophils % 57.8 Lymphocytes % 22.6 Monocytes % 12.3 H Eosinophils % 3.1 Basophils % 0.2 Nucleated Red Blood Cells % 0.9 H Neutrophils # 2.6 Lymphocytes # 1.0 Monocytes # 0.6 Eosinophils # 0.1 Basophils # 0.0 Nucleated Red Blood Cells # 0.0 Sodium Level 139 Potassium Level 3.9 Chloride Level 108 Carbon Dioxide Level 26 Anion Gap 9 Blood Urea Nitrogen 19 Creatinine 1.13 Glucose Level 80 Calcium Level 7.7 L Lab Scanned Report BLOOD TRANSFUSION Bedside Glucose 85 209 Medications Medications Current Medications Insulin Glargine (Lantus) 15 unit QHS SC Last administered on 07/30/17 22:30 ; Admin Dose 15 UNIT; Start 07/28/17 at 21:00 Miscellaneous Information 1 ea NOTE XX ; Start 07/28/17 at 19:30 Glucose (Glutose) 15 gm Q15M PRN PO DECREASED GLUCOSE; Start 07/28/17 at 19:30 Glucose (Glutose) 22.5 gm Q15M PRN PO DECREASED GLUCOSE; Start 07/28/17 at 19: 30 Dextrose (D50w Syringe) 25 ml Q15M PRN IV DECREASED GLUCOSE; Start 07/28/17 at 19:30 Dextrose (D50w Syringe) 50 ml Q15M PRN IV DECREASED GLUCOSE; Start 07/28/17 at 19:30 Glucagon (Glucagen) 1 mg Q15M PRN IM DECREASED GLUCOSE; Start 07/28/17 at 19: 30 Glucose (Glutose) 15 gm Q15M PRN BUCCAL DECREASED GLUCOSE; Start 07/28/17 at 19:30 Diagnostic Test (Pha) (Accu-Chek) 1 ea 02 XX ; Start 07/30/17 at 02:00 Pantoprazole (Protonix Iv) 40 mg BID@06,18 IV Last administered on 07/31/17 06:24; Admin Dose 40 MG; Start 07/30/17 at 06:00 Carvedilol (Coreg) 6.25 mg BID PO Last administered on 07/31/17 08:08; Admin Dose 6.25 MG; Start 07/29/17 at 21:00 Atorvastatin Calcium (Lipitor) 80 mg HS PO Last administered on 07/30/17 22: 15; Admin Dose 80 MG; Start 07/29/17 at 21:00 Methylprednisolone Sodium Succinate (Solu-Medrol) 40 mg DAILY IV Last administered on 07/31/17 09:45; Admin Dose 40 MG; Start 07/31/17 at 09:30 Acetaminophen (Tylenol Tab) 500 mg Q4H PRN PO PAIN AND OR ELEVATED TEMP Last administered on 07/31/17 11:12; Admin Dose 500 MG; Start 07/31/17 at 11:30 AMBER FINLEY Jul 31, 2017 12:51
[2017-07-31 14:14] VITALS: BP 121/58; RESP 18
[2017-07-31] MEDS: PANTOPRAZOLE (EC) 40 MG TAB PO SCH (17:16)
[2017-07-31 20:00] VITALS: BP 142/63; RESP 20
[2017-07-31] MEDS: ATORVASTATIN 80 MG TAB PO SCH (20:29)
[2017-07-31] MEDS: INSULIN GLARGINE [LANtus] 3 ML PEN SC SCH (20:35)
[2017-07-31] MEDS ORDERED: INSULIN ASPART [NOVOLOG] 3 ML PEN SC ONE (21:00)
--- NOTE | 2017-08-01 00:52 | RADRPT ---
PROCEDURE: XR Lumbar Spine. CLINICAL INDICATION: Back pain TECHNIQUE: AP and lateral views of the lumbar spine were obtained. COMPARISON: 07/28/2017 FINDINGS: Again seen is a compression fracture of L1 vertebral body with loss of approximate 1/2 height of the vertebral body. There is no buckling of the anterior cortex suggestive of acute compression fractur e. There is diffuse osteopenia. Mild degenerative disc changes at multiple levels. Facet hypertrophy in mid to lower lumbar spine. Calcification in abdominal aorta and iliac arteries. IMPRESSION: Compression fracture of L1 vertebral body again seen. Diffuse osteopenia. Mild degenerative changes. Please see above. RPTAT: HJES .Bipin Gonzales MD, MD Date Time Electronically viewed and signed by .Bipin Gonzales MD, MD on 08/01/2017 00:52 .S/
[2017-08-01 02:00] VITALS: BP 125/61; RESP 20
[2017-08-01] MEDS: ALBUTEROL/IPRATROPIUM (NEB) 3 ML AMP HHN SCH ×4 (02:07→19:39)
[2017-08-01] MEDS: ACCU-CHEK XX SCH (02:50)
[2017-08-01] MEDS: PANTOPRAZOLE (EC) 40 MG TAB PO SCH ×2 (05:56→18:51)
[2017-08-01 06:27] LABS: ABNORMAL IP MESSAGE 1; BASOPHILS % 0.2 % (0.0-2.0); EOSINOPHILS % 0.5 % (0.0-7.0); HEMATOCRIT 24.6 % (42.0-52.0); HEMOGLOBIN 8.2 g/dl (14.0-18.0); LYMPHOCYTES # 0.6 10^3/ul (0.8-2.9); LYMPHOCYTES % 14.4 % (15.0-51.0); MEAN CORPUSCULAR HEMOGLOBIN 29.9 pg (29.0-33.0); MEAN CORPUSCULAR HGB CONC 33.3 g/dl (32.0-37.0); MEAN CORPUSCULAR VOLUME 89.8 fl (82.0-101.0); MEAN PLATELET VOLUME 10.9 fl (7.4-10.4); MONOCYTE # 0.5 10^3/ul (0.3-0.9); MONOCYTES % 11.2 % (0.0-11.0); NEUTROPHIL # 2.9 10^3/ul (1.6-7.5); NEUTROPHILS % 71.3 % (39.0-77.0); PLATELET COUNT 110 10^3/UL (140-415); POSITIVE DIFF @See below; RED BLOOD COUNT 2.74 10^6/ul (4.70-6.10); RED CELL DISTRIBUTION WIDTH 16.4 % (11.5-14.5); WHITE BLOOD COUNT 4.1 10^3/ul (4.8-10.8)
[2017-08-01 06:58] LABS: CALCIUM 7.6 mg/dl (8.4-10.2); CREATININE 1.23 mg/dl (0.61-1.24); POTASSIUM 4.1 mmol/L (3.5-5.1)
[2017-08-01 08:17] VITALS: BP 130/60; RESP 22
[2017-08-01] MEDS: INSULIN ASPART [NOVOLOG] 3 ML PEN SC SCH ×4 (08:53→20:41)
[2017-08-01 14:30] VITALS: BP 112/56; RESP 22
--- NOTE | 2017-08-01 15:16 | PN ---
Date/Time of Note Date/Time of Note DATE: 08/01/17 TIME: 15:10 Assessment/Plan VTE Prophylaxis VTE Prophylaxis Intervention: SCD's Lines/Catheters IV [facility]ter Type (from [facility]): Peripheral IV Urinary Cath still in place: No Assessment/Plan Chief Complaint/Hosp Course Patient denies any chest pain, elevated blood sugar due to steroids, continue Lantus and pre-meal NovoLog, continue to monitor blood sugar. Plan of care was discussed with patient and patient's son at the bedside. All questions answered. Assessment/Plan - NSTEMI. Dr. Cook is following in cardiology consultation - GI bleed. Prepyloric ulcer status post 3 Hemoclips application during EGD. continue Protonix. Dr. Grove is following in gastroenterology consultation. - H pylori per biopsy, start H pylori eradication regimen. - Anemia of acute blood loss, s/p blood transfusion. continue to monitor hemoglobin and hematocrit. - HTN - DM hemoglobin A1c 8.5. Continue Lantus and pre-meal NovoLog. - Dyslipidemia Further recommendations based on clinical course. Plan of care discussed with Dr. Oglesby. Problems: Exam/Review of Systems Vital Signs Vitals Vital Signs Date Time Temp Pulse Resp B/P Pulse Ox O2 Delivery O2 Flow Rate FiO2 08/01/17 14:30 98.5 78 22 112/56 95 08/01/17 14:09 21 07/30/17 13:27 Room Air 07/30/17 12:15 2 Intake and Output 07/31/17 07/31/17 08/01/17 14:59 22:59 06:59 Intake Total 940 ml Output Total 1400 ml Balance -460 ml Exam Constitutional: alert, oriented Respiratory: normal air movement Cardiovascular: nl pulses Gastrointestinal: non-tender, soft Musculoskeletal: nl extremities to inspection Extremities: normal pulses Results Result Diagram: 08/01/17 0601 08/01/17 0601 Results 24 hrs Laboratory Tests Test 07/31/17 17:11 07/31/17 20:29 07/31/17 21:13 08/01/17 01:41 Bedside Glucose 342 H 477 *H 461 *H 338 H Test 08/01/17 06:01 08/01/17 08:25 08/01/17 12:08 White Blood Count 4.1 L Red Blood Count 2.74 L Hemoglobin 8.2 L Hematocrit 24.6 L Mean Corpuscular Volume 89.8 Mean Corpuscular Hemoglobin 29.9 Mean Corpuscular Hemoglobin Concent 33.3 Red Cell Distribution Width 16.4 H Platelet Count 110 L Mean Platelet Volume 10.9 H Neutrophils % 71.3 Lymphocytes % 14.4 L Monocytes % 11.2 H Eosinophils % 0.5 Basophils % 0.2 Nucleated Red Blood Cells % 0.0 Neutrophils # 2.9 Lymphocytes # 0.6 L Monocytes # 0.5 Eosinophils # 0.0 Basophils # 0.0 Nucleated Red Blood Cells # 0.0 Sodium Level 136 Potassium Level 4.1 Chloride Level 106 Carbon Dioxide Level 23 Anion Gap 11 Blood Urea Nitrogen 31 #H Creatinine 1.23 Glucose Level 262 #H Calcium Level 7.6 L Bedside Glucose 297 H 219 Medications Medications Current Medications Insulin Glargine (Lantus) 15 unit QHS SC Last administered on 07/31/17 20:35 ; Admin Dose 15 UNIT; Start 07/28/17 at 21:00 Miscellaneous Information 1 ea NOTE XX ; Start 07/28/17 at 19:30 Glucose (Glutose) 15 gm Q15M PRN PO DECREASED GLUCOSE; Start 07/28/17 at 19:30 Glucose (Glutose) 22.5 gm Q15M PRN PO DECREASED GLUCOSE; Start 07/28/17 at 19: 30 Dextrose (D50w Syringe) 25 ml Q15M PRN IV DECREASED GLUCOSE; Start 07/28/17 at 19:30 Dextrose (D50w Syringe) 50 ml Q15M PRN IV DECREASED GLUCOSE; Start 07/28/17 at 19:30 Glucagon (Glucagen) 1 mg Q15M PRN IM DECREASED GLUCOSE; Start 07/28/17 at 19: 30 Glucose (Glutose) 15 gm Q15M PRN BUCCAL DECREASED GLUCOSE; Start 07/28/17 at 19:30 Diagnostic Test (Pha) (Accu-Chek) 1 ea 02 XX Last administered on 08/01/17 02 :50; Admin Dose 1 EA; Start 07/30/17 at 02:00 Carvedilol (Coreg) 6.25 mg BID PO Last administered on 08/01/17 08:45; Admin Dose 6.25 MG; Start 07/29/17 at 21:00 Atorvastatin Calcium (Lipitor) 80 mg HS PO Last administered on 07/31/17 20: 29; Admin Dose 80 MG; Start 07/29/17 at 21:00 Acetaminophen (Tylenol Tab) 500 mg Q4H PRN PO PAIN AND OR ELEVATED TEMP Last administered on 07/31/17 11:12; Admin Dose 500 MG; Start 07/31/17 at 11:30 Pantoprazole (Protonix Tab) 40 mg BID@06,18 PO Last administered on 08/01/17 05:56; Admin Dose 40 MG; Start 07/31/17 at 18:00 AKIRA ADAMS Aug 01, 2017 15:15
--- NOTE | 2017-08-01 15:55 | CONS ---
Date/Time of Note Date/Time of Note DATE: 08/01/17 TIME: 15:52 Consult Date/Type/Reason Admit Date/Time Jul 28, 2017 at 17:35 Initial Consult Date 07/28/17 Type of Consultation: cardiology Ordering Provider: AMBER FINLEY Subjective cardiology follow up note: S: Discussed with the staff . Patient denies any active chest pain or pressure to me. Denies any active bleeding to me. Denies any palpitation to me. s/p EGD on 07/30/17 showing PUD. O: General: obese no acute distress HEENT: NC/AT. pupils are equal. round. NECK: NO JVD. no stridor. CV: RRR. systolic murmur; no gallop or rubs. PULM: no wheezing or rhonchi. GI: SOFT, NT, ND, no rebound or guarding Extremity: trace B/L LE edema. no clubbing. neuro: awake and alert, OX3. Psych: calm and pleasant rectal: deferred DERM: Multiple diffuse ecchymosis. EG reviewed; NSR. Nonspecific ST-T wave abnormalities echo reviewed; 1. Normal left ventricular cavity size. Mild concentric left ventricular hypertrophy. Ejection fraction is visually estimated at 50 %. Tissue Doppler/Mitral Doppler indices are consistent with impaired relaxation (Stage I diastolic dysfunction). Multiple segmental wall motion abnormalities. These segments of the LV are hypokinetic mid anterior segment, apical anterior segment. and apical septum. 2. Normal appearance of the mitral valve. Mild mitral annular calcification. Trace mitral regurgitation. 3. Aortic valve not well visualized. No hemodynamically significant aortic stenosis by doppler. Aortic cusps appear moderately calcified. Mild aortic valve regurgitation. 4. Normal appearance of the tricuspid valve. Estimated peak PA systolic pressure 33 mmHg. There is trace tricuspid regurgitation. Objective Vital Signs Date Time Temp Pulse Resp B/P Pulse Ox O2 Delivery O2 Flow Rate FiO2 08/01/17 14:30 98.5 78 22 112/56 95 08/01/17 14:09 21 07/30/17 13:27 Room Air 07/30/17 12:15 2 Intake and Output 07/31/17 07/31/17 08/01/17 15:00 23:00 07:00 Intake Total 940 ml Output Total 1400 ml Balance -460 ml Results/Medications Result Diagram: 08/01/17 0601 08/01/17 06 Results 24 hrs Laboratory Tests Test 07/31/17 17:11 07/31/17 20:29 07/31/17 21:13 08/01/17 01:41 Bedside Glucose 342 H 477 *H 461 *H 338 H Test 08/01/17 06:01 08/01/17 08:25 08/01/17 12:08 White Blood Count 4.1 L Red Blood Count 2.74 L Hemoglobin 8.2 L Hematocrit 24.6 L Mean Corpuscular Volume 89.8 Mean Corpuscular Hemoglobin 29.9 Mean Corpuscular Hemoglobin Concent 33.3 Red Cell Distribution Width 16.4 H Platelet Count 110 L Mean Platelet Volume 10.9 H Neutrophils % 71.3 Lymphocytes % 14.4 L Monocytes % 11.2 H Eosinophils % 0.5 Basophils % 0.2 Nucleated Red Blood Cells % 0.0 Neutrophils # 2.9 Lymphocytes # 0.6 L Monocytes # 0.5 Eosinophils # 0.0 Basophils # 0.0 Nucleated Red Blood Cells # 0.0 Sodium Level 136 Potassium Level 4.1 Chloride Level 106 Carbon Dioxide Level 23 Anion Gap 11 Blood Urea Nitrogen 31 #H Creatinine 1.23 Glucose Level 262 #H Calcium Level 7.6 L Bedside Glucose 297 H 219 Medications Current Medications Insulin Glargine (Lantus) 15 unit QHS SC Last administered on 07/31/17t 20:35 ; Admin Dose 15 UNIT; Start 07/28/17 at 21:00 Miscellaneous Information 1 ea NOTE XX ; Start 07/28/17 at 19:30 Glucose (Glutose) 15 gm Q15M PRN PO DECREASED GLUCOSE; Start 07/28/17 at 19:30 Glucose (Glutose) 22.5 gm Q15M PRN PO DECREASED GLUCOSE; Start 07/28/17 at 19: 30 Dextrose (D50w Syringe) 25 ml Q15M PRN IV DECREASED GLUCOSE; Start 07/28/17 at 19:30 Dextrose (D50w Syringe) 50 ml Q15M PRN IV DECREASED GLUCOSE; Start 07/28/17 at 19:30 Glucagon (Glucagen) 1 mg Q15M PRN IM DECREASED GLUCOSE; Start 07/28/17 at 19: 30 Glucose (Glutose) 15 gm Q15M PRN BUCCAL DECREASED GLUCOSE; Start 07/28/17 at 19:30 Diagnostic Test (Pha) (Accu-Chek) 1 ea 02 XX Last administered on 08/01/17 02 :50; Admin Dose 1 EA; Start 07/30/17 at 02:00 Carvedilol (Coreg) 6.25 mg BID PO Last administered on 08/01/17 08:45; Admin Dose 6.25 MG; Start 07/29/17 at 21:00 Atorvastatin Calcium (Lipitor) 80 mg HS PO Last administered on 07/31/17 20: 29; Admin Dose 80 MG; Start 07/29/17 at 21:00 Acetaminophen (Tylenol Tab) 500 mg Q4H PRN PO PAIN AND OR ELEVATED TEMP Last administered on 07/31/17 11:12; Admin Dose 500 MG; Start 07/31/17 at 11:30 Pantoprazole (Protonix Tab) 40 mg BID@06,18 PO Last administered on 08/01/17 05:56; Admin Dose 40 MG; Start 07/31/17 at 18:00 Clarithromycin (Biaxin) 500 mg BID PO ; Start 08/01/17 at 21:00; Stop 08/10/17 at 20:59 Amoxicillin (Amoxicillin) 1,000 mg BID PO ; Start 08/01/17 at 21:00; Stop 08/11 at 20:59 Assessment/Plan Chief Complaint/Hosp Course 1. NSTEMI 2. GI bleed/ PUD 3. HTN 4. DM 5. Severe anemia due to above 6. dyslipidemia 7. hx TIA 8. HX of poor compliance Recommendations: s/p transfusions. We will hold off on aspirin now, given his active GI bleed RECOMMEND STARTING ECASA 81 mg po daily as soon as ok with GI. but given GI bleed it is on hold now. f/u with GI consultation I will CONT the patient on carvedilol and lipitor for now. Diabetic management/insulin as per internal medicine. Echocardiogram reviewed. Patient currently remains chest pain-free. recommend ischemic work up with stress test as outpt and once pt is given the ok to start ASA by GI. Thank you for his referral will continue to follow along with you prn. ADELFO CHOE MD [facility] Problems: ADELFO CHOE MD Aug 01, 2017 15:55
[2017-08-01 20:19] VITALS: BP 118/65; RESP 20
[2017-08-01 20:26] VITALS: BP 118/65; RESP 20
[2017-08-01] MEDS: ATORVASTATIN 80 MG TAB PO SCH (20:34)
[2017-08-01] MEDS: INSULIN GLARGINE [LANtus] 3 ML PEN SC SCH (20:41)
[2017-08-01] MEDS: CLARITHROMYCIN 500 MG TAB PO SCH ×2 (20:42→23:23)
[2017-08-01] MEDS: AMOXICILLIN 500 MG CAP PO SCH ×2 (20:42→23:23)
[2017-08-02] MEDS: ALBUTEROL/IPRATROPIUM (NEB) 3 ML AMP HHN SCH ×4 (01:14→19:30)
[2017-08-02 02:00] VITALS: BP 127/60; RESP 20
[2017-08-02] MEDS: ACCU-CHEK XX SCH (02:09)
[2017-08-02] MEDS: PANTOPRAZOLE (EC) 40 MG TAB PO SCH ×2 (05:33→17:37)
[2017-08-02 06:36] LABS: BASOPHILS % 0.2 % (0.0-2.0); EOSINOPHILS # 0.2 10^3/ul (0.0-0.5); EOSINOPHILS % 4.5 % (0.0-7.0); HEMATOCRIT 25.1 % (42.0-52.0); HEMOGLOBIN 8.3 g/dl (14.0-18.0); LYMPHOCYTES # 1.1 10^3/ul (0.8-2.9); LYMPHOCYTES % 27.6 % (15.0-51.0); MEAN CORPUSCULAR HEMOGLOBIN 30.6 pg (29.0-33.0); MEAN CORPUSCULAR HGB CONC 33.1 g/dl (32.0-37.0); MEAN CORPUSCULAR VOLUME 92.6 fl (82.0-101.0); MEAN PLATELET VOLUME 10.6 fl (7.4-10.4); MONOCYTE # 0.5 10^3/ul (0.3-0.9); MONOCYTES % 13.4 % (0.0-11.0); NEUTROPHIL # 2.1 10^3/ul (1.6-7.5); NEUTROPHILS % 53.1 % (39.0-77.0); PLATELET COUNT 111 10^3/UL (140-415); RED BLOOD COUNT 2.71 10^6/ul (4.70-6.10); RED CELL DISTRIBUTION WIDTH 17.2 % (11.5-14.5)
[2017-08-02 07:11] LABS: CALCIUM 7.6 mg/dl (8.4-10.2); CREATININE 1.12 mg/dl (0.61-1.24); POTASSIUM 4.1 mmol/L (3.5-5.1)
[2017-08-02 07:14] VITALS: BP 131/62; RESP 20
[2017-08-02] MEDS: INSULIN ASPART [NOVOLOG] 3 ML PEN SC SCH ×4 (08:15→21:04)
[2017-08-02] MEDS: AMOXICILLIN 500 MG CAP PO SCH ×2 (08:48→20:58)
[2017-08-02] MEDS: CLARITHROMYCIN 500 MG TAB PO SCH ×2 (08:48→20:58)
--- NOTE | 2017-08-02 11:12 | PN ---
Date/Time of Note Date/Time of Note DATE: 08/02/17 TIME: 11:09 Assessment/Plan VTE Prophylaxis VTE Prophylaxis Intervention: other Lines/Catheters IV [facility] Type [facility]from [facility] Saline Lock Urinary Cath still in place: No Assessment/Plan Chief Complaint/Hosp Course - NSTEMI. Dr. Cook is following in cardiology consultation - GI bleed. Prepyloric ulcer status post 3 Hemoclips application during EGD. continue Protonix. Dr. Grove is following in gastroenterology consultation. - H pylori per biopsy, start H pylori eradication regimen. - Anemia of acute blood loss, s/p blood transfusion. continue to monitor hemoglobin and hematocrit. - HTN - DM hemoglobin A1c 8.5. Continue Lantus and pre-meal NovoLog. - Dyslipidemia Problems: Subjective 24 Hr Interval Summary Free Text/Dictation Patient not in room so unable to interview patient Exam/Review of Systems Vital Signs Vitals Vital Signs Date Time Temp Pulse Resp B/P Pulse Ox O2 Delivery O2 Flow Rate FiO2 08/02/17 08:01 78 16 96 21 08/02/17 07:14 98.4 131/62 07/30/17 13:27 Room Air 07/30/17 12:15 2 Intake and Output 08/01/17 08/01/17 08/02/17 15:00 23:00 07:00 Intake Total 240 ml 1240 ml 700 ml Output Total 1150 ml 1100 ml 1300 ml Balance -910 ml 140 ml -600 ml Exam Patient away from room so unable to interview Results Result Diagram: 08/02/17 0521 08/02/17 0521 Results 24 hrs Laboratory Tests Test 08/01/17 12:08 08/01/17 17:53 08/01/17 20:34 08/02/17 02:05 Bedside Glucose 219 209 274 H 147 Test 08/02/17 05:21 08/02/17 08:11 White Blood Count 4.0 L Red Blood Count 2.71 L Hemoglobin 8.3 L Hematocrit 25.1 L Mean Corpuscular Volume 92.6 Mean Corpuscular Hemoglobin 30.6 Mean Corpuscular Hemoglobin Concent 33.1 Red Cell Distribution Width 17.2 H Platelet Count 111 L Mean Platelet Volume 10.6 H Neutrophils % 53.1 Lymphocytes % 27.6 Monocytes % 13.4 H Eosinophils % 4.5 Basophils % 0.2 Nucleated Red Blood Cells % 0.0 Neutrophils # 2.1 Lymphocytes # 1.1 Monocytes # 0.5 Eosinophils # 0.2 Basophils # 0.0 Nucleated Red Blood Cells # 0.0 Sodium Level 138 Potassium Level 4.1 Chloride Level 105 Carbon Dioxide Level 24 Anion Gap 13 Blood Urea Nitrogen 28 H Creatinine 1.12 Glucose Level 88 # Calcium Level 7.6 L Bedside Glucose 97 Medications Medications Current Medications Insulin Glargine (Lantus) 15 unit QHS SC Last administered on 08/01/17 20:41 ; Admin Dose 15 UNIT; Start 07/28/17 at 21:00 Miscellaneous Information 1 ea NOTE XX ; Start 07/28/17 at 19:30 Glucose (Glutose) 15 gm Q15M PRN PO DECREASED GLUCOSE; Start 07/28/17 at 19:30 Glucose (Glutose) 22.5 gm Q15M PRN PO DECREASED GLUCOSE; Start 07/28/17 at 19: 30 Dextrose (D50w Syringe) 25 ml Q15M PRN IV DECREASED GLUCOSE; Start 07/28/17 at 19:30 Dextrose (D50w Syringe) 50 ml Q15M PRN IV DECREASED GLUCOSE; Start 07/28/17 at 19:30 Glucagon (Glucagen) 1 mg Q15M PRN IM DECREASED GLUCOSE; Start 07/28/17 at 19: 30 Glucose (Glutose) 15 gm Q15M PRN BUCCAL DECREASED GLUCOSE; Start 07/28/17 at 19:30 Diagnostic Test (Pha) (Accu-Chek) 1 ea 02 XX Last administered on 08/02/17 02 :09; Admin Dose 1 EA; Start 07/30/17 at 02:00 Carvedilol (Coreg) 6.25 mg BID PO Last administered on 08/02/17 08:49; Admin Dose 6.25 MG; Start 07/29/17 at 21:00 Atorvastatin Calcium (Lipitor) 80 mg HS PO Last administered on 08/01/17 20: 34; Admin Dose 80 MG; Start 07/29/17 at 21:00 Acetaminophen (Tylenol Tab) 500 mg Q4H PRN PO PAIN AND OR ELEVATED TEMP Last administered on 07/31/17 11:12; Admin Dose 500 MG; Start 07/31/17 at 11:30 Pantoprazole (Protonix Tab) 40 mg BID@18 PO Last administered on 08/02/17 05:33; Admin Dose 40 MG; Start 07/31/17 at 18:00 Clarithromycin (Biaxin) 500 mg BID PO Last administered on 08/02/17 08:48; Admin Dose 500 MG; Start 08/01/17 at 21:00; Stop 08/10/17 at 20:59 Amoxicillin (Amoxicillin) 1,000 mg BID PO Last administered on 08/02/17 08:48 ; Admin Dose 1,000 MG; Start 08/01/17 at 21:00; Stop 08/11/17 at 20:59 JOSE F RODRIGUEZ Aug 02, 2017 11:12
--- NOTE | 2017-08-02 11:38 | PN ---
DATE: 08/01/2017 HISTORY OF PRESENT ILLNESS: At this time, the patient is admitted to the hospital because of anemia , hemoglobin very low at 6 grams. Endoscopy showed evidence of prepyloric ulcer. Biopsy was done. Pathology showed evidence of mild chronic gastritis and intestinal metaplasia. No malignancy descr ibed. Helicobacter is identified in the Gram stain. CLINICAL IMPRESSION: The patient has a peptic ulcer disease which is a gastric prepyloric ulcer wit h a positive H. pylori with significant bleeding. PLAN: At this time, we will treat the patient with a proton pump inhibitor therapy, amoxicillin and Flagyl. Once again, Doctor, thank you for this consultation. Dictated By: JULIO KING MD [place]/NTS Conf#: [id number] DID#: [id number] CC: ASHOK KAN MD;*EndCC*
[2017-08-02 13:24] VITALS: BP 118/58; RESP 20
[2017-08-02 19:37] VITALS: BP 140/67; RESP 18
[2017-08-02] MEDS: ATORVASTATIN 80 MG TAB PO SCH (20:57)
[2017-08-02] MEDS: INSULIN GLARGINE [LANtus] 3 ML PEN SC SCH (21:01)
[2017-08-03] MEDS: ACCU-CHEK XX SCH (01:36)
[2017-08-03] MEDS: ALBUTEROL/IPRATROPIUM (NEB) 3 ML AMP HHN SCH ×4 (01:38→19:32)
[2017-08-03 02:20] VITALS: BP 122/60; RESP 18
[2017-08-03] MEDS: PANTOPRAZOLE (EC) 40 MG TAB PO SCH ×2 (05:33→17:18)
[2017-08-03 07:18] VITALS: BP 136/69; RESP 20
[2017-08-03] MEDS: INSULIN ASPART [NOVOLOG] 3 ML PEN SC SCH ×4 (07:55→21:07)
[2017-08-03] MEDS: AMOXICILLIN 500 MG CAP PO SCH ×2 (08:01→21:05)
[2017-08-03] MEDS: CLARITHROMYCIN 500 MG TAB PO SCH ×2 (08:01→21:05)
--- NOTE | 2017-08-03 10:50 | PN ---
Date/Time of Note Date/Time of Note DATE: 08/03/17 TIME: 10:49 Assessment/Plan VTE Prophylaxis VTE Prophylaxis Intervention: other Lines/Catheters [facility] Saline Lock Urinary Cath still in place: No Assessment/Plan Chief Complaint/Hosp Course - NSTEMI. Dr. Cook is following in cardiology consultation - GI bleed. Prepyloric ulcer status post 3 Hemoclips application during EGD. continue Protonix. Dr. Grove is following in gastroenterology consultation. - H pylori per biopsy, start H pylori eradication regimen. - Anemia of acute blood loss, s/p blood transfusion. continue to monitor hemoglobin and hematocrit. - HTN - DM hemoglobin A1c 8.5. Continue Lantus and pre-meal NovoLog. - Dyslipidemia Problems: Subjective 24 Hr Interval Summary Free Text/Dictation Patient has no complaints Exam/Review of Systems Vital Signs Vitals Vital Signs Date Time Temp Pulse Resp B/P Pulse Ox O2 Delivery O2 Flow Rate FiO2 08/03/17 07:44 82 16 94 21 08/03/17 07:18 99.2 136/69 07/30/17 13:27 Room Air 07/30/17 12:15 2 Intake and Output 08/02/17 08/02/17 08/03/17 15:00 23:00 07:00 Intake Total 1200 ml 480 ml Output Total 1050 ml 1600 ml Balance 150 ml -1120 ml Exam Constitutional: well developed Head: atraumatic, normocephalic Neck: supple Respiratory: clear to auscultation Cardiovascular: regular rate and rhythm Gastrointestinal: non-tender, soft Extremities: normal pulses Results Result Diagram: 08/02/1752008/02/17520 Results 24 hrs Laboratory Tests Test 08/02/17 12:14 08/02/17 17:21 08/02/17 20:57 08/03/17 01:35 Bedside Glucose 142 121 187 148 Test 08/03/17 07:54 Bedside Glucose 112 Medications Medications Current Medications Insulin Glargine (Lantus) 15 unit QHS SC Last administered on 08/02/17t 21:01 ; Admin Dose 15 UNIT; Start 07/28/17 at 21:00 Miscellaneous Information 1 ea NOTE XX ; Start 07/28/17 at 19:30 Glucose (Glutose) 15 gm Q15M PRN PO DECREASED GLUCOSE; Start 07/28/17 at 19:30 Glucose (Glutose) 22.5 gm Q15M PRN PO DECREASED GLUCOSE; Start 07/28/17 at 19: 30 Dextrose (D50w Syringe) 25 ml Q15M PRN IV DECREASED GLUCOSE; Start 07/28/17 at 19:30 Dextrose (D50w Syringe) 50 ml Q15M PRN IV DECREASED GLUCOSE; Start 07/28/17 at 19:30 Glucagon (Glucagen) 1 mg Q15M PRN IM DECREASED GLUCOSE; Start 07/28/17 at 19: 30 Glucose (Glutose) 15 gm Q15M PRN BUCCAL DECREASED GLUCOSE; Start 07/28/17 at 19:30 Diagnostic Test (Pha) (Accu-Chek) 1 ea 02 XX Last administered on 08/02/17 02 :09; Admin Dose 1 EA; Start 07/30/17 at 02:00 Carvedilol (Coreg) 6.25 mg BID PO Last administered on 08/03/17 08:04; Admin Dose 6.25 MG; Start 07/29/17 at 21:00 Atorvastatin Calcium (Lipitor) 80 mg HS PO Last administered on 08/02/17 20: 57; Admin Dose 80 MG; Start 07/29/17 at 21:00 Acetaminophen (Tylenol Tab) 500 mg Q4H PRN PO PAIN AND OR ELEVATED TEMP Last administered on 07/31/17 11:12; Admin Dose 500 MG; Start 07/31/17 at 11:30 Pantoprazole (Protonix Tab) 40 mg BID@06,18 PO Last administered on 08/03/17 05:33; Admin Dose 40 MG; Start 07/31/17 at 18:00 Clarithromycin (Biaxin) 500 mg BID PO Last administered on 08/03/17 08:01; Admin Dose 500 MG; Start 08/01/17 at 21:00; Stop 08/10/17 at 20:59 Amoxicillin (Amoxicillin) 1,000 mg BID PO Last administered on 08/03/17 08:01 ; Admin Dose 1,000 MG; Start 08/01/17 at 21:00; Stop 08/11/17 at 20:59 JOSE F RODRIGUEZ Aug 03, 2017 10:50
[2017-08-03 13:45] VITALS: BP 128/62; RESP 20
--- NOTE | 2017-08-03 19:09 | CONS ---
DATE OF ADMISSION: 07/28/2017 DATE OF CONSULTATION: 08/03/2017 The patient has no complaints. He is having brown stools. He has history of bleeding prepyloric ul cer which was treated with Hemoclips and his hemoglobin is 8.3. Vital signs are normal. Examinatio n of the abdomen is unremarkable. CLINICAL IMPRESSION: Prepyloric ulcer status post hemoclipping. No GI bleeding at this time. PLAN: 1. Continue Protonix 40 mg a day. 2. He is recommended to repeat an EGD in 6 weeks. Dictated By: JULIO KING MD NC/NTS Conf#: [id number] DID#: [id number] CC: ASHOK KAN MD;*EndCC*
[2017-08-03 20:50] VITALS: BP 133/70; RESP 20
[2017-08-03] MEDS: ATORVASTATIN 80 MG TAB PO SCH (21:05)
[2017-08-03] MEDS: INSULIN GLARGINE [LANtus] 3 ML PEN SC SCH (21:06)
[2017-08-04] MEDS: ALBUTEROL/IPRATROPIUM (NEB) 3 ML AMP HHN SCH ×4 (01:33→20:00)
[2017-08-04] MEDS: ACCU-CHEK XX SCH (02:00)
[2017-08-04 02:28] VITALS: BP 125/57; RESP 20
[2017-08-04] MEDS: PANTOPRAZOLE (EC) 40 MG TAB PO SCH ×2 (06:03→17:39)
[2017-08-04 06:37] LABS: BASOPHILS % 0.3 % (0.0-2.0); EOSINOPHILS # 0.2 10^3/ul (0.0-0.5); EOSINOPHILS % 5.7 % (0.0-7.0); HEMATOCRIT 24.8 % (42.0-52.0); HEMOGLOBIN 8.1 g/dl (14.0-18.0); LYMPHOCYTES # 1.1 10^3/ul (0.8-2.9); LYMPHOCYTES % 35.4 % (15.0-51.0); MEAN CORPUSCULAR HGB CONC 32.7 g/dl (32.0-37.0); MEAN CORPUSCULAR VOLUME 91.9 fl (82.0-101.0); MEAN PLATELET VOLUME 10.5 fl (7.4-10.4); MONOCYTE # 0.6 10^3/ul (0.3-0.9); NEUTROPHIL # 1.2 10^3/ul (1.6-7.5); NEUTROPHILS % 38.6 % (39.0-77.0); NUCLEATED RED BLOOD CELLS% 0.6 /100WBC (0.0-0.0); PLATELET COUNT 108 10^3/UL (140-415); POSITIVE DIFF @See below; RED CELL DISTRIBUTION WIDTH 17.3 % (11.5-14.5); WHITE BLOOD COUNT 3.2 10^3/ul (4.8-10.8)
[2017-08-04 06:45] LABS: MONOCYTES % 18.4 % (0.0-11.0)
[2017-08-04 07:13] VITALS: BP 122/59; RESP 20
[2017-08-04 07:16] LABS: CREATININE 1.07 mg/dl (0.61-1.24); POTASSIUM 3.9 mmol/L (3.5-5.1)
[2017-08-04] MEDS: CLARITHROMYCIN 500 MG TAB PO SCH ×2 (08:11→21:51)
[2017-08-04] MEDS: INSULIN ASPART [NOVOLOG] 3 ML PEN SC SCH ×5 (08:12→21:55)
[2017-08-04] MEDS: AMOXICILLIN 500 MG CAP PO SCH ×2 (12:08→21:52)
[2017-08-04 13:33] VITALS: BP 130/61; RESP 18
--- NOTE | 2017-08-04 14:11 | PN ---
Date/Time of Note Date/Time of Note DATE: 08/04/17 TIME: 14:05 Assessment/Plan VTE Prophylaxis VTE Prophylaxis Intervention: SCD's Lines/Catheters [facility] Saline Lock Urinary Cath still in place: No Assessment/Plan Chief Complaint/Hosp Course Will adjust Lantus and NovoLog for blood sugar above 200, patient denies any nausea and vomiting tolerates current diet well, to need to monitor hemoglobin and hematocrit. Assessment/Plan - NSTEMI. Dr. Cook is following in cardiology consultation - GI bleed. Prepyloric ulcer status post 3 Hemoclips application during EGD. continue Protonix. Dr. Grove is following in gastroenterology consultation. - H pylori per biopsy, continue H pylori eradication regimen. - Anemia of acute blood loss, s/p blood transfusion. continue to monitor hemoglobin and hematocrit. - HTN - DM hemoglobin A1c 8.5. Continue Lantus and pre-meal NovoLog. - Dyslipidemia Further recommendations based on clinical course. Plan of care discussed with Dr. Oglesby. Problems: Exam/Review of Systems Vital Signs Vitals Vital Signs Date Time Temp Pulse Resp B/P Pulse Ox O2 Delivery O2 Flow Rate FiO2 08/04/17 13:46 91 18 97 21 08/04/17 13:33 98.3 130/61 Intake and Output 08/03/17 08/03/17 08/04/17 14:59 22:59 06:59 Intake Total 1560 ml 1520 ml Output Total 2050 ml 1700 ml Balance -490 ml -180 ml Exam Constitutional: alert, oriented Respiratory: normal air movement Cardiovascular: nl pulses Gastrointestinal: non-tender, soft Musculoskeletal: nl extremities to inspection Extremities: normal pulses Results Result Diagram: 08/04/17 0533 08/04/17 0533 Results 24 hrs Laboratory Tests Test 08/03/17 17:17 08/03/17 21:02 08/04/17 01:53 08/04/17 05:33 Bedside Glucose 234 H 209 155 White Blood Count 3.2 L Red Blood Count 2.70 L Hemoglobin 8.1 L Hematocrit 24.8 L Mean Corpuscular Volume 91.9 Mean Corpuscular Hemoglobin 30.0 Mean Corpuscular Hemoglobin Concent 32.7 Red Cell Distribution Width 17.3 H Platelet Count 108 L Mean Platelet Volume 10.5 H Neutrophils % 38.6 L Lymphocytes % 35.4 Monocytes % 18.4 H Eosinophils % 5.7 Basophils % 0.3 Nucleated Red Blood Cells % 0.6 H Neutrophils # 1.2 L Lymphocytes # 1.1 Monocytes # 0.6 Eosinophils # 0.2 Basophils # 0.0 Nucleated Red Blood Cells # 0.0 Sodium Level 137 Potassium Level 3.9 Chloride Level 105 Carbon Dioxide Level 27 Anion Gap 9 Blood Urea Nitrogen 20 Creatinine 1.07 Glucose Level 109 Calcium Level 8.0 L Test 08/04/17 08:01 08/04/17 12:10 Bedside Glucose 120 219 Medications Medications Current Medications Insulin Glargine (Lantus) 15 unit QHS SC Last administered on 08/03/17 21:06 ; Admin Dose 15 UNIT; Start 07/28/17 at 21:00 Miscellaneous Information 1 ea NOTE XX ; Start 07/28/17 at 19:30 Glucose (Glutose) 15 gm Q15M PRN PO DECREASED GLUCOSE; Start 07/28/17 at 19:30 Glucose (Glutose) 22.5 gm Q15M PRN PO DECREASED GLUCOSE; Start 07/28/17 at 19: 30 Dextrose (D50w Syringe) 25 ml Q15M PRN IV DECREASED GLUCOSE; Start 07/28/17 at 19:30 Dextrose (D50w Syringe) 50 ml Q15M PRN IV DECREASED GLUCOSE; Start 07/28/17 at 19:30 Glucagon (Glucagen) 1 mg Q15M PRN IM DECREASED GLUCOSE; Start 07/28/17 at 19: 30 Glucose (Glutose) 15 gm Q15M PRN BUCCAL DECREASED GLUCOSE; Start 07/28/17 at 19:30 Diagnostic Test (Pha) (Accu-Chek) 1 ea 02 XX Last administered on 08/04/17 02 :00; Admin Dose 1 EA; Start 07/30/17 at 02:00 Carvedilol (Coreg) 6.25 mg BID PO Last administered on 08/04/17 08:12; Admin Dose 6.25 MG; Start 07/29/17 at 21:00 Atorvastatin Calcium (Lipitor) 80 mg HS PO Last administered on 08/03/17 21: 05; Admin Dose 80 MG; Start 07/29/17 at 21:00 Acetaminophen (Tylenol Tab) 500 mg Q4H PRN PO PAIN AND OR ELEVATED TEMP Last administered on 07/31/17 11:12; Admin Dose 500 MG; Start 07/31/17 at 11:30 Pantoprazole (Protonix Tab) 40 mg BID@,18 PO Last administered on 08/04/17 06:03; Admin Dose 40 MG; Start 07/31/17 at 18:00 Clarithromycin (Biaxin) 500 mg BID PO Last administered on 08/04/17 08:11; Admin Dose 500 MG; Start 08/01/17 at 21:00; Stop 08/10/17 at 20:59 Amoxicillin (Amoxicillin) 1,000 mg BID PO Last administered on 08/04/17 12:08 ; Admin Dose 1,000 MG; Start 08/01/17 at 21:00; Stop 08/11/17 at 20:59 AKIRA ADAMS Aug 04, 2017 14:11
--- NOTE | 2017-08-04 16:14 | CONS ---
Date/Time of Note Date/Time of Note DATE: 08/04/17 TIME: 16:13 Consult Date/Type/Reason Admit Date/Time Jul 28, 2017 at 17:35 Initial Consult Date 07/28/17 Type of Consultation: cardiology Ordering Provider: AMBER FINLEY Subjective cardiology follow up note: S: Discussed with the staff . Patient denies any active chest pain or pressure to me. Denies any active bleeding to me. Denies any palpitation to me. s/p EGD on 07/30/17 showing PUD. O: General: obese no acute distress HEENT: NC/AT. pupils are equal. round. NECK: NO JVD. no stridor. CV: RRR. systolic murmur; no gallop or rubs. PULM: no wheezing or rhonchi. GI: SOFT, NT, ND, no rebound or guarding Extremity: trace B/L LE edema. no clubbing. neuro: awake and alert, OX3. Psych: calm and pleasant rectal: deferred DERM: Multiple diffuse ecchymosis. EG reviewed; NSR. Nonspecific ST-T wave abnormalities echo reviewed; 1. Normal left ventricular cavity size. Mild concentric left ventricular hypertrophy. Ejection fraction is visually estimated at 50 %. Tissue Doppler/Mitral Doppler indices are consistent with impaired relaxation (Stage I diastolic dysfunction). Multiple segmental wall motion abnormalities. These segments of the LV are hypokinetic mid anterior segment, apical anterior segment. and apical septum. 2. Normal appearance of the mitral valve. Mild mitral annular calcification. Trace mitral regurgitation. 3. Aortic valve not well visualized. No hemodynamically significant aortic stenosis by doppler. Aortic cusps appear moderately calcified. Mild aortic valve regurgitation. 4. Normal appearance of the tricuspid valve. Estimated peak PA systolic pressure 33 mmHg. There is trace tricuspid regurgitation. Objective Vital Signs Date Time Temp Pulse Resp B/P Pulse Ox O2 Delivery O2 Flow Rate FiO2 08/04/17 13:46 91 18 97 21 08/04/17 13:33 98.3 130/61 Intake and Output 08/03/17 08/03/17 08/04/17 15:00 23:00 07:00 Intake Total 1560 ml 1520 ml Output Total 2050 ml 1700 ml Balance -490 ml -180 ml Results/Medications Result Diagram: 08/04/17 0533 08/04/17 0533 Results 24 hrs Laboratory Tests Test 08/03/17 17:17 08/03/17 21:02 08/04/17 01:53 08/04/17 05:33 Bedside Glucose 234 H 209 155 White Blood Count 3.2 L Red Blood Count 2.70 L Hemoglobin 8.1 L Hematocrit 24.8 L Mean Corpuscular Volume 91.9 Mean Corpuscular Hemoglobin 30.0 Mean Corpuscular Hemoglobin Concent 32.7 Red Cell Distribution Width 17.3 H Platelet Count 108 L Mean Platelet Volume 10.5 H Neutrophils % 38.6 L Lymphocytes % 35.4 Monocytes % 18.4 H Eosinophils % 5.7 Basophils % 0.3 Nucleated Red Blood Cells % 0.6 H Neutrophils # 1.2 L Lymphocytes # 1.1 Monocytes # 0.6 Eosinophils # 0.2 Basophils # 0.0 Nucleated Red Blood Cells # 0.0 Sodium Level 137 Potassium Level 3.9 Chloride Level 105 Carbon Dioxide Level 27 Anion Gap 9 Blood Urea Nitrogen 20 Creatinine 1.07 Glucose Level 109 Calcium Level 8.0 L Test 08/04/17 08:01 08/04/17 12:10 Bedside Glucose 120 219 Medications Current Medications Insulin Glargine (Lantus) 15 unit QHS SC Last administered on 08/03/17 21:06 ; Admin Dose 15 UNIT; Start 07/28/17 at 21:00 Miscellaneous Information 1 ea NOTE XX ; Start 07/28/17 at 19:30 Glucose (Glutose) 15 gm Q15M PRN PO DECREASED GLUCOSE; Start 07/28/17 at 19:30 Glucose (Glutose) 22.5 gm Q15M PRN PO DECREASED GLUCOSE; Start 07/28/17 at 19: 30 Dextrose (D50w Syringe) 25 ml Q15M PRN IV DECREASED GLUCOSE; Start 07/28/17 at 19:30 Dextrose (D50w Syringe) 50 ml Q15M PRN IV DECREASED GLUCOSE; Start 07/28/17 at 19:30 Glucagon (Glucagen) 1 mg Q15M PRN IM DECREASED GLUCOSE; Start 07/28/17 at 19: 30 Glucose (Glutose) 15 gm Q15M PRN BUCCAL DECREASED GLUCOSE; Start 07/28/17 at 19:30 Carvedilol (Coreg) 6.25 mg BID PO Last administered on 08/04/17 08:12; Admin Dose 6.25 MG; Start 07/29/17 at 21:00 Atorvastatin Calcium (Lipitor) 80 mg HS PO Last administered on 08/03/17 21: 05; Admin Dose 80 MG; Start 07/29/17 at 21:00 Acetaminophen (Tylenol Tab) 500 mg Q4H PRN PO PAIN AND OR ELEVATED TEMP Last administered on 07/31/17 11:12; Admin Dose 500 MG; Start 07/31/17 at 11:30 Pantoprazole (Protonix Tab) 40 mg BID@,18 PO Last administered on 08/04/17 06:03; Admin Dose 40 MG; Start 07/31/17 at 18:00 Clarithromycin (Biaxin) 500 mg BID PO Last administered on 08/04/17 08:11; Admin Dose 500 MG; Start 08/01/17 at 21:00; Stop 08/10/17 at 20:59 Amoxicillin (Amoxicillin) 1,000 mg BID PO Last administered on 08/04/17 12:08 ; Admin Dose 1,000 MG; Start 08/01/17 at 21:00; Stop 08/11/17 at 20:59 Diagnostic Test (Pha) (Accu-Chek) 1 ea 02 XX ; Start 08/05/17 at 02:00 Assessment/Plan Chief Complaint/Hosp Course 1. NSTEMI 2. GI bleed/ PUD 3. HTN 4. DM 5. Severe anemia due to above 6. dyslipidemia 7. hx TIA 8. HX of poor compliance Recommendations: s/p transfusions. he is not on ASA now due to his active GI bleed RECOMMEND STARTING ECASA 81 mg po daily as soon as ok with GI. f/u with GI consultation I will CONT the patient on carvedilol and lipitor for now. Diabetic management/insulin as per internal medicine. Echocardiogram reviewed. Patient currently remains chest pain-free. recommend ischemic work up with stress test as outpt and once pt is given the ok to start ASA by GI. Thank you for his referral will continue to follow along with you prn. ADELFO CHOE MD [facility] Problems: ADELFO CHOE MD Aug 04, 2017 16:14
[2017-08-04 20:00] VITALS: BP 127/71; RESP 20
[2017-08-04] MEDS: ATORVASTATIN 80 MG TAB PO SCH (21:51)
[2017-08-04] MEDS: INSULIN GLARGINE [LANtus] 3 ML PEN SC SCH (21:56)
[2017-08-04] MEDS ORDERED: BARIUM SULF 2% 450 ML BTL (BERRY SMOOTHIE) PO ONE (22:00)
[2017-08-04] MEDS ORDERED: DEXTROSE 5%-0.9% NACL 1,000 ML IV SCH (22:30)
--- NOTE | 2017-08-04 22:33 | RADRPT ---
PROCEDURE: CT abdomen and pelvis without contrast. CLINICAL INDICATION: GI bleed. TECHNIQUE: CT of the abdomen and pelvis was performed without contrast. Coronal and sagittal reform atted images were obtained from the axial source images. Images were reviewed on a high-resolution [employer] workstation. The total exam CTDI equals 90.03 mGy and the total exam DLP equals 1264.31 mGy-cm. DICOM images are available. Evaluation is partially limited due to motion artifact. One or more of the following dose reduction techniques were used: - Automated exposure control. - Adjustment of the mA and/or kV according to patient size. - Use of iterative reconstruction technique. COMPARISON: None available. FINDINGS: Visualized lower thorax: The visualized lung bases are clear. There are multivessel coronary artery calcifications. The visualized heart is otherwise unremarkable. Hepatobiliary system and spleen: There is an indeterminate 1.8 cm lesion at the dome of the liver. There is no intra or extrahepatic biliary ductal dilatation. The gallbladder is grossly unremarkable . The spleen is grossly unremarkable. The pancreas is grossly unremarkable. Adrenal glands and genitourinary system: The adrenal glands are grossly unremarkable. There are tika ateral renal cysts. There is mild asymmetric left perinephric inflammatory change. There is no nephr olithiasis or hydronephrosis. The urinary bladder is grossly unremarkable. The prostate gland and se katherine vesicles are grossly unremarkable. There are moderate left and small right fat containing ingu inal hernias. Gastrointestinal system: There is no bowel wall thickening or evidence of obstruction. The appendix is in the right lower quadrant and is unremarkable. Peritoneum, vascular, and lymphatics: There is no free intraperitoneal air or free fluid. There is no mesenteric or retroperitoneal adenopathy. There are atherosclerotic changes of the aorta, which i s nonaneurysmal. Musculoskeletal system and soft tissues: There is a mild compression deformity of the L1 vertebral body, age indeterminate. There is moderate multilevel degenerative enthesopathy. There are no concer abel osseous lesions. The soft tissues are unremarkable. IMPRESSION: 1. No acute abnormality or findings to suggest a source of the patient's symptoms. 2. Indeterminate 1.8 cm lesion at the dome of the liver. Multiphase CT scan or MRI can be performed for further evaluation. 3. Nonspecific mildly asymmetric left perinephric inflammatory change. No hydronephrosis. Correlati on with urinalysis is recommended. 4. Moderate left and small right fat containing inguinal hernias. 5. Multivessel coronary artery calcifications and atherosclerotic changes of the aorta. 6. Mild L1 vertebral body compression deformity, age indeterminate. RPTAT: HLBP .Fernando Melgar MD, MD Date Time Electronically viewed and signed by .Fernando Melgar MD, MD on 08/04/2017 22:33 .P/
[2017-08-05] MEDS: ALBUTEROL/IPRATROPIUM (NEB) 3 ML AMP HHN SCH ×4 (01:28→19:25)
[2017-08-05 02:00] VITALS: BP 118/61; RESP 20
[2017-08-05] MEDS: ACCU-CHEK XX SCH (02:00)
[2017-08-05] MEDS: PANTOPRAZOLE (EC) 40 MG TAB PO SCH ×2 (06:00→18:03)
[2017-08-05 06:38] LABS: HEMATOCRIT 25.4 % (42.0-52.0); HEMOGLOBIN 8.3 g/dl (14.0-18.0); MEAN CORPUSCULAR HEMOGLOBIN 30.1 pg (29.0-33.0); MEAN CORPUSCULAR HGB CONC 32.7 g/dl (32.0-37.0); MEAN PLATELET VOLUME 10.5 fl (7.4-10.4); PLATELET COUNT 121 10^3/UL (140-415); POSITIVE DIFF @See below; RED BLOOD COUNT 2.76 10^6/ul (4.70-6.10); RED CELL DISTRIBUTION WIDTH 17.3 % (11.5-14.5); WHITE BLOOD COUNT 3.4 10^3/ul (4.8-10.8)
[2017-08-05 07:06] LABS: CALCIUM 7.9 mg/dl (8.4-10.2); CREATININE 1.04 mg/dl (0.61-1.24); POTASSIUM 3.7 mmol/L (3.5-5.1)
[2017-08-05 07:45] LABS: ANISOCYTOSIS 1+ (0-0); EOSINOPHILS % (M) 5 % (0-7); MICROCYTOSIS 1+ (0-0); MONOCYTES % (M) 4 % (0-11); PLATELET ESTIMATE DECREASED; POLYCHROMASIA 2+ (0-0); SPHEROCYTES 1+ (0-0)
[2017-08-05 07:51] VITALS: BP 120/57; RESP 20
[2017-08-05] MEDS: INSULIN ASPART [NOVOLOG] 3 ML PEN SC SCH ×7 (08:06→22:10)
[2017-08-05] MEDS: AMOXICILLIN 500 MG CAP PO SCH ×2 (08:14→21:18)
[2017-08-05] MEDS: CLARITHROMYCIN 500 MG TAB PO SCH ×2 (08:15→21:17)
[2017-08-05 14:00] VITALS: BP 126/59; RESP 20
[2017-08-05] MEDS ORDERED: POTASSIUM CHLORIDE (SR) 20 MEQ TAB PO STA (15:23)
--- NOTE | 2017-08-05 15:26 | CONS ---
Date/Time of Note Date/Time of Note DATE: 08/05/17 TIME: 15:24 Consult Date/Type/Reason Admit Date/Time Jul 28, 2017 at 17:35 Initial Consult Date 07/28/17 Type of Consultation: cardiology Ordering Provider: AMBER FINLEY Subjective cardiology follow up note: S: Discussed with the staff and physicians. Patient denies any active chest pain or pressure to me. Denies any active bleeding to me. Denies any palpitation to me. s/p EGD on 07/30/17 showing PUD. he c/o sob now O: General: obese no acute distress HEENT: NC/AT. pupils are equal. round. NECK: NO JVD. no stridor. CV: RRR. systolic murmur; no gallop or rubs. PULM: mild wheezing GI: SOFT, NT, ND, no rebound or guarding Extremity: trace B/L LE edema. no clubbing. neuro: awake and alert, OX3. Psych: calm and pleasant rectal: deferred DERM: Multiple diffuse ecchymosis. EG reviewed; NSR. Nonspecific ST-T wave abnormalities echo reviewed; 1. Normal left ventricular cavity size. Mild concentric left ventricular hypertrophy. Ejection fraction is visually estimated at 50 %. Tissue Doppler/Mitral Doppler indices are consistent with impaired relaxation (Stage I diastolic dysfunction). Multiple segmental wall motion abnormalities. These segments of the LV are hypokinetic mid anterior segment, apical anterior segment. and apical septum. 2. Normal appearance of the mitral valve. Mild mitral annular calcification. Trace mitral regurgitation. 3. Aortic valve not well visualized. No hemodynamically significant aortic stenosis by doppler. Aortic cusps appear moderately calcified. Mild aortic valve regurgitation. 4. Normal appearance of the tricuspid valve. Estimated peak PA systolic pressure 33 mmHg. There is trace tricuspid regurgitation. Objective Vital Signs Date Time Temp Pulse Resp B/P Pulse Ox O2 Delivery O2 Flow Rate FiO2 08/05/17 14:58 94 20 96 21 08/05/17 14:00 98.0 126/59 Intake and Output 08/04/17 08/04/17 08/05/17 15:00 23:00 07:00 Intake Total 1500 ml 900 ml Output Total 1900 ml 960 ml Balance -400 ml -60 ml Results/Medications Result Diagram: 08/05/17 0558 08/05/17 0558 Results 24 hrs Laboratory Tests Test 08/04/17 17:38 08/04/17 21:53 08/05/17 02:53 08/05/17 05:58 Bedside Glucose 168 194 144 White Blood Count 3.4 L Red Blood Count 2.76 L Hemoglobin 8.3 L Hematocrit 25.4 L Mean Corpuscular Volume 92.0 Mean Corpuscular Hemoglobin 30.1 Mean Corpuscular Hemoglobin Concent 32.7 Red Cell Distribution Width 17.3 H Platelet Count 121 L Mean Platelet Volume 10.5 H Neutrophils % Segmented Neutrophils % (Manual) 39 Band Neutrophils % (Manual) 3 Lymphocytes % Lymphocytes % (Manual) 49 Monocytes % Monocytes % (Manual) 4 Eosinophils % Eosinophils % (Manual) 5 Basophils % Nucleated Red Blood Cells % 0.0 Neutrophils # Neutrophils # (Manual) 1.3 L Band Neutrophils # 0.1 Absolute Lymphocytes (Manual) 1.6 Lymphocytes # Monocytes # Absolute Monocytes (Manual) 0.1 L Eosinophils # Basophils # Nucleated Red Blood Cells # Platelet Estimate DECREASED Polychromasia 2+ Anisocytosis 1+ Microcytosis 1+ Spherocytes 1+ Sodium Level 137 Potassium Level 3.7 Chloride Level 104 Carbon Dioxide Level 26 Anion Gap 11 Blood Urea Nitrogen 16 Creatinine 1.04 Glucose Level 120 Calcium Level 7.9 L Test 08/05/17 08:12 08/05/17 12:19 Bedside Glucose 128 132 Medications Current Medications Insulin Glargine (Lantus) 15 unit QHS SC Last administered on 08/04/17t 21:56 ; Admin Dose 15 UNIT; Start 07/28/17 at 21:00 Miscellaneous Information 1 ea NOTE XX ; Start 07/28/17 at 19:30 Glucose (Glutose) 15 gm Q15M PRN PO DECREASED GLUCOSE; Start 07/28/17 at 19:30 Glucose (Glutose) 22.5 gm Q15M PRN PO DECREASED GLUCOSE; Start 07/28/17 at 19: 30 Dextrose (D50w Syringe) 25 ml Q15M PRN IV DECREASED GLUCOSE; Start 07/28/17 at 19:30 Dextrose (D50w Syringe) 50 ml Q15M PRN IV DECREASED GLUCOSE; Start 07/28/17 at 19:30 Glucagon (Glucagen) 1 mg Q15M PRN IM DECREASED GLUCOSE; Start 07/28/17 at 19: 30 Glucose (Glutose) 15 gm Q15M PRN BUCCAL DECREASED GLUCOSE; Start 07/28/17 at 19:30 Carvedilol (Coreg) 6.25 mg BID PO Last administered on 08/04/17 21:51; Admin Dose 6.25 MG; Start 07/29/17 at 21:00 Atorvastatin Calcium (Lipitor) 80 mg HS PO Last administered on 08/04/17 21: 51; Admin Dose 80 MG; Start 07/29/17 at 21:00 Acetaminophen (Tylenol Tab) 500 mg Q4H PRN PO PAIN AND OR ELEVATED TEMP Last administered on 07/31/17 11:12; Admin Dose 500 MG; Start 07/31/17 at 11:30 Pantoprazole (Protonix Tab) 40 mg BID@,18 PO Last administered on 08/04/17 17:39; Admin Dose 40 MG; Start 07/31/17 at 18:00 Clarithromycin (Biaxin) 500 mg BID PO Last administered on 08/04/17 21:51; Admin Dose 500 MG; Start 08/01/17 at 21:00; Stop 08/10/17 at 20:59 Amoxicillin (Amoxicillin) 1,000 mg BID PO Last administered on 08/04/17 21:52 ; Admin Dose 1,000 MG; Start 08/01/17 at 21:00; Stop 08/11/17 at 20:59 Diagnostic Test (Pha) (Accu-Chek) 1 ea 02 XX ; Start 08/05/17 at 02:00 Assessment/Plan Chief Complaint/Hosp Course 1. NSTEMI 2. GI bleed/ PUD 3. HTN 4. DM 5. Severe anemia due to above 6. dyslipidemia 7. hx TIA 8. HX of poor compliance 9. liver lesion: f/u with GI rec 10. fluid overload. Recommendations: s/p transfusions. he is not on ASA now due to his active GI bleed. RECOMMEND STARTING ECASA 81 mg po daily as soon as ok with GI. so far GI has requested a month off of asa for now. f/u with GI consultation I will CONT the patient on carvedilol and lipitor for now. Diabetic management/insulin as per internal medicine. will give a dose of lasix and kcl today and check CXR Thank you for his referral will continue to follow along with you prn. ADELFO CHOE MD [facility] Problems: ADELFO CHOE MD Aug 05, 2017 15:26
[2017-08-05] MEDS ORDERED: FUROSEMIDE 20 MG INJ IV ONE (15:30)
--- NOTE | 2017-08-05 16:03 | PN ---
Date/Time of Note Date/Time of Note DATE: 08/05/17 TIME: 16:00 Assessment/Plan VTE Prophylaxis VTE Prophylaxis Intervention: SCD's Lines/Catheters IV [facility]ter Type (from [facility]): Peripheral IV Urinary Cath still in place: No Assessment/Plan Chief Complaint/Hosp Course Patient's complains of mild wheezing, 1 dose of Lasix is ordered, monitor chest x-ray. Plan of care discussed consults, patient is not recommended to start aspirin now by our gastroenterology colleagues. Assessment/Plan - NSTEMI. Dr. Cook is following in cardiology consultation - GI bleed. Prepyloric ulcer status post 3 Hemoclips application during EGD. continue Protonix. Dr. Grove is following in gastroenterology consultation. - H pylori per biopsy, continue H pylori eradication regimen. - Anemia of acute blood loss, s/p blood transfusion. continue to monitor hemoglobin and hematocrit. - HTN - DM hemoglobin A1c 8.5. Continue Lantus and pre-meal NovoLog. - Dyslipidemia Further recommendations based on clinical course. Plan of care discussed with Dr. Oglesby. Problems: Exam/Review of Systems Vital Signs Vitals Vital Signs Date Time Temp Pulse Resp B/P Pulse Ox O2 Delivery O2 Flow Rate FiO2 08/05/17 14:58 94 20 96 21 08/05/17 14:00 98.0 126/59 Intake and Output 08/04/17 08/04/17 08/05/17 15:00 23:00 07:00 Intake Total 1500 ml 900 ml Output Total 1900 ml 960 ml Balance -400 ml -60 ml Exam Constitutional: alert, oriented Respiratory: normal air movement Cardiovascular: nl pulses Gastrointestinal: non-tender, soft Musculoskeletal: nl extremities to inspection Extremities: normal pulses Results Result Diagram: 08/05/17 0558 08/05/17 0558 Results 24 hrs Laboratory Tests Test 08/04/17 17:38 08/04/17 21:53 08/05/17 02:53 08/05/17 05:58 Bedside Glucose 168 194 144 White Blood Count 3.4 L Red Blood Count 2.76 L Hemoglobin 8.3 L Hematocrit 25.4 L Mean Corpuscular Volume 92.0 Mean Corpuscular Hemoglobin 30.1 Mean Corpuscular Hemoglobin Concent 32.7 Red Cell Distribution Width 17.3 H Platelet Count 121 L Mean Platelet Volume 10.5 H Neutrophils % Segmented Neutrophils % (Manual) 39 Band Neutrophils % (Manual) 3 Lymphocytes % Lymphocytes % (Manual) 49 Monocytes % Monocytes % (Manual) 4 Eosinophils % Eosinophils % (Manual) 5 Basophils % Nucleated Red Blood Cells % 0.0 Neutrophils # Neutrophils # (Manual) 1.3 L Band Neutrophils # 0.1 Absolute Lymphocytes (Manual) 1.6 Lymphocytes # Monocytes # Absolute Monocytes (Manual) 0.1 L Eosinophils # Basophils # Nucleated Red Blood Cells # Platelet Estimate DECREASED Polychromasia 2+ Anisocytosis 1+ Microcytosis 1+ Spherocytes 1+ Sodium Level 137 Potassium Level 3.7 Chloride Level 104 Carbon Dioxide Level 26 Anion Gap 11 Blood Urea Nitrogen 16 Creatinine 1.04 Glucose Level 120 Calcium Level 7.9 L Test 08/05/17 08:12 08/05/17 12:19 Bedside Glucose 128 132 Medications Medications Current Medications Insulin Glargine (Lantus) 15 unit QHS SC Last administered on 08/04/17 21:56 ; Admin Dose 15 UNIT; Start 07/28/17 at 21:00 Miscellaneous Information 1 ea NOTE XX ; Start 07/28/17 at 19:30 Glucose (Glutose) 15 gm Q15M PRN PO DECREASED GLUCOSE; Start 07/28/17 at 19:30 Glucose (Glutose) 22.5 gm Q15M PRN PO DECREASED GLUCOSE; Start 07/28/17 at 19: 30 Dextrose (D50w Syringe) 25 ml Q15M PRN IV DECREASED GLUCOSE; Start 07/28/17 at 19:30 Dextrose (D50w Syringe) 50 ml Q15M PRN IV DECREASED GLUCOSE; Start 07/28/17 at 19:30 Glucagon (Glucagen) 1 mg Q15M PRN IM DECREASED GLUCOSE; Start 07/28/17 at 19: 30 Glucose (Glutose) 15 gm Q15M PRN BUCCAL DECREASED GLUCOSE; Start 07/28/17 at 19:30 Carvedilol (Coreg) 6.25 mg BID PO Last administered on 08/04/17 21:51; Admin Dose 6.25 MG; Start 07/29/17 at 21:00 Atorvastatin Calcium (Lipitor) 80 mg HS PO Last administered on 08/04/17 21: 51; Admin Dose 80 MG; Start 07/29/17 at 21:00 Acetaminophen (Tylenol Tab) 500 mg Q4H PRN PO PAIN AND OR ELEVATED TEMP Last administered on 07/31/17 11:12; Admin Dose 500 MG; Start 07/31/17 at 11:30 Pantoprazole (Protonix Tab) 40 mg BID@,18 PO Last administered on 08/04/17 17:39; Admin Dose 40 MG; Start 07/31/17 at 18:00 Clarithromycin (Biaxin) 500 mg BID PO Last administered on 08/04/17 21:51; Admin Dose 500 MG; Start 08/01/17 at 21:00; Stop 08/10/17 at 20:59 Amoxicillin (Amoxicillin) 1,000 mg BID PO Last administered on 08/04/17 21:52 ; Admin Dose 1,000 MG; Start 08/01/17 at 21:00; Stop 08/11/17 at 20:59 Diagnostic Test (Pha) (Accu-Chek) 1 ea 02 XX ; Start 08/05/17 at 02:00 AKIRA ADAMS Aug 05, 2017 16:03
[2017-08-05 20:12] VITALS: BP 129/63; RESP 20
--- NOTE | 2017-08-05 20:57 | RADRPT ---
PROCEDURE: XR Chest 1 View. CLINICAL INDICATION: Shortness of breath. TECHNIQUE: Single view of the chest was obtained. COMPARISON: CHEST 07/31/2017 FINDINGS: The heart size is within normal limits. Calcified atherosclerosis is noted in the aorta. Subsegment al atelectasis is noted at the lung bases. No consolidations are identified. No pneumothorax is see n. Osseous structures are intact. IMPRESSION: Calcified atherosclerosis in the aorta. Subsegmental atelectasis at the lung bases. RPTAT: AA .Steven Mcintyre MD, Date Time Electronically viewed and signed by .Steven Mcintyre MD, on 08/05/2017 20:57 .P/
[2017-08-05] MEDS: ATORVASTATIN 80 MG TAB PO SCH (21:18)
[2017-08-05] MEDS: INSULIN GLARGINE [LANtus] 3 ML PEN SC SCH (22:10)
[2017-08-06] MEDS: ALBUTEROL/IPRATROPIUM (NEB) 3 ML AMP HHN SCH ×4 (01:00→20:02)
[2017-08-06] MEDS: ACCU-CHEK XX SCH (02:00)
[2017-08-06 02:09] VITALS: BP 123/57; RESP 20
[2017-08-06] MEDS ORDERED: DEXTROSE 5%-0.9% NACL 1,000 ML IV SCH (06:00)
[2017-08-06] MEDS: PANTOPRAZOLE (EC) 40 MG TAB PO SCH ×2 (06:21→17:17)
[2017-08-06 06:41] LABS: BASOPHILS % 0.3 % (0.0-2.0); EOSINOPHILS # 0.3 10^3/ul (0.0-0.5); EOSINOPHILS % 7.5 % (0.0-7.0); HEMOGLOBIN 8.5 g/dl (14.0-18.0); LYMPHOCYTES # 0.9 10^3/ul (0.8-2.9); LYMPHOCYTES % 26.2 % (15.0-51.0); MEAN CORPUSCULAR HEMOGLOBIN 30.1 pg (29.0-33.0); MEAN CORPUSCULAR HGB CONC 32.7 g/dl (32.0-37.0); MEAN CORPUSCULAR VOLUME 92.2 fl (82.0-101.0); MEAN PLATELET VOLUME 10.5 fl (7.4-10.4); MONOCYTE # 0.7 10^3/ul (0.3-0.9); MONOCYTES % 20.1 % (0.0-11.0); NEUTROPHIL # 1.6 10^3/ul (1.6-7.5); NEUTROPHILS % 44.5 % (39.0-77.0); PLATELET COUNT 144 10^3/UL (140-415); RED BLOOD COUNT 2.82 10^6/ul (4.70-6.10); RED CELL DISTRIBUTION WIDTH 16.6 % (11.5-14.5); WHITE BLOOD COUNT 3.6 10^3/ul (4.8-10.8)
[2017-08-06 07:22] LABS: ALBUMIN 2.6 g/dl (3.3-4.9); ALBUMIN/GLOBULIN RATIO 0.83; BILIRUBIN,INDIRECT 1.1 mg/dl (0-1.1); BILIRUBIN,TOTAL 1.1 mg/dl (0.2-1.3); CALCIUM 8.2 mg/dl (8.4-10.2); CREATININE 1.21 mg/dl (0.61-1.24); MAGNESIUM 1.5 mg/dl (1.7-2.5); TOTAL PROTEIN 5.7 g/dl (6.1-8.1)
[2017-08-06 07:49] VITALS: BP 136/63; RESP 18
[2017-08-06] MEDS: INSULIN ASPART [NOVOLOG] 3 ML PEN SC SCH ×7 (07:56→21:13)
[2017-08-06] MEDS: CLARITHROMYCIN 500 MG TAB PO SCH ×2 (07:57→21:10)
[2017-08-06] MEDS: AMOXICILLIN 500 MG CAP PO SCH ×2 (07:57→21:10)
--- NOTE | 2017-08-06 08:29 | CONS ---
Date/Time of Note Date/Time of Note DATE: 08/06/17 TIME: 08:28 Consult Date/Type/Reason Admit Date/Time Jul 28, 2017 at 17:35 Initial Consult Date 07/28/17 Type of Consultation: cardiology Ordering Provider: AMBER FINLEY Subjective cardiology follow up note: S: Discussed with the staff and physicians. Patient denies any active chest pain or pressure to me. Denies any active bleeding to me. Denies any palpitation to me. s/p EGD on 07/30/17 showing PUD. he denies sob now O: General: obese no acute distress HEENT: NC/AT. pupils are equal. round. NECK: NO JVD. no stridor. CV: RRR. systolic murmur; no gallop or rubs. PULM: no wheezing GI: SOFT, NT, ND, no rebound or guarding Extremity: trace B/L LE edema. no clubbing. neuro: awake and alert, OX3. Psych: calm and pleasant rectal: deferred DERM: Multiple diffuse ecchymosis. EG reviewed; NSR. Nonspecific ST-T wave abnormalities echo reviewed; 1. Normal left ventricular cavity size. Mild concentric left ventricular hypertrophy. Ejection fraction is visually estimated at 50 %. Tissue Doppler/Mitral Doppler indices are consistent with impaired relaxation (Stage I diastolic dysfunction). Multiple segmental wall motion abnormalities. These segments of the LV are hypokinetic mid anterior segment, apical anterior segment. and apical septum. 2. Normal appearance of the mitral valve. Mild mitral annular calcification. Trace mitral regurgitation. 3. Aortic valve not well visualized. No hemodynamically significant aortic stenosis by doppler. Aortic cusps appear moderately calcified. Mild aortic valve regurgitation. 4. Normal appearance of the tricuspid valve. Estimated peak PA systolic pressure 33 mmHg. There is trace tricuspid regurgitation. Objective Vital Signs Date Time Temp Pulse Resp B/P Pulse Ox O2 Delivery O2 Flow Rate FiO2 08/06/17 07:55 90 24 93 21 08/06/17 07:49 99.3 136/63 Intake and Output 08/05/17 08/05/17 08/06/17 15:00 23:00 07:00 Intake Total 600 ml 600 ml Output Total 1050 ml 1600 ml Balance 600 ml -1050 ml -1000 ml Results/Medications Result Diagram: 08/06/17 0540 08/06/17 0540 Results 24 hrs Laboratory Tests Test 08/05/17 12:19 08/05/17 17:18 08/05/17 21:11 08/06/17 02:17 Bedside Glucose 132 103 247 H 136 Test 08/06/17 05:40 08/06/17 07:55 White Blood Count 3.6 L Red Blood Count 2.82 L Hemoglobin 8.5 L Hematocrit 26.0 L Mean Corpuscular Volume 92.2 Mean Corpuscular Hemoglobin 30.1 Mean Corpuscular Hemoglobin Concent 32.7 Red Cell Distribution Width 16.6 H Platelet Count 144 Mean Platelet Volume 10.5 H Neutrophils % 44.5 Lymphocytes % 26.2 Monocytes % 20.1 H Eosinophils % 7.5 H Basophils % 0.3 Nucleated Red Blood Cells % 0.0 Neutrophils # 1.6 Lymphocytes # 0.9 Monocytes # 0.7 Eosinophils # 0.3 Basophils # 0.0 Nucleated Red Blood Cells # 0.0 Sodium Level 135 Potassium Level 4.0 Chloride Level 101 Carbon Dioxide Level 29 Anion Gap 9 Blood Urea Nitrogen 15 Creatinine 1.21 Glucose Level 101 Calcium Level 8.2 L Magnesium Level 1.5 L Total Bilirubin 1.1 Direct Bilirubin 0.00 Indirect Bilirubin 1.1 Aspartate Amino Transf (AST/SGOT) 20 Alanine Aminotransferase (ALT/SGPT) 31 Alkaline Phosphatase 62 B-Type Natriuretic Peptide 430 Total Protein 5.7 L Albumin 2.6 L Globulin 3.10 Albumin/Globulin Ratio 0.83 Bedside Glucose 116 Medications Current Medications Insulin Glargine (Lantus) 15 unit QHS SC Last administered on 08/05/17t 22:10 ; Admin Dose 15 UNIT; Start 07/28/17 at 21:00 Miscellaneous Information 1 ea NOTE XX ; Start 07/28/17 at 19:30 Glucose (Glutose) 15 gm Q15M PRN PO DECREASED GLUCOSE; Start 07/28/17 at 19:30 Glucose (Glutose) 22.5 gm Q15M PRN PO DECREASED GLUCOSE; Start 07/28/17 at 19: 30 Dextrose (D50w Syringe) 25 ml Q15M PRN IV DECREASED GLUCOSE; Start 07/28/17 at 19:30 Dextrose (D50w Syringe) 50 ml Q15M PRN IV DECREASED GLUCOSE; Start 07/28/17 at 19:30 Glucagon (Glucagen) 1 mg Q15M PRN IM DECREASED GLUCOSE; Start 07/28/17 at 19: 30 Glucose (Glutose) 15 gm Q15M PRN BUCCAL DECREASED GLUCOSE; Start 07/28/17 at 19:30 Carvedilol (Coreg) 6.25 mg BID PO Last administered on 08/06/17 07:57; Admin Dose 6.25 MG; Start 07/29/17 at 21:00 Atorvastatin Calcium (Lipitor) 80 mg HS PO Last administered on 08/05/17 21: 18; Admin Dose 80 MG; Start 07/29/17 at 21:00 Acetaminophen (Tylenol Tab) 500 mg Q4H PRN PO PAIN AND OR ELEVATED TEMP Last administered on 07/31/17 11:12; Admin Dose 500 MG; Start 07/31/17 at 11:30 Pantoprazole (Protonix Tab) 40 mg BID@06,18 PO Last administered on 08/06/17 06:21; Admin Dose 40 MG; Start 07/31/17 at 18:00 Clarithromycin (Biaxin) 500 mg BID PO Last administered on 08/06/17 07:57; Admin Dose 500 MG; Start 08/01/17 at 21:00; Stop 08/10/17 at 20:59 Amoxicillin (Amoxicillin) 1,000 mg BID PO Last administered on 08/06/17 07:57 ; Admin Dose 1,000 MG; Start 08/01/17 at 21:00; Stop 08/11/17 at 20:59 Diagnostic Test (Pha) 1 ea 1 ea 02 XX ; Start 08/05/17 at 02:00 Dextrose/Sodium Chloride (D5-NS) 1,000 ml @ 50 mls/hr Q20H IV Last administered on 08/06/17 06:21; Admin Dose 50 MLS/HR; Start 08/06/17 at 06:00 Assessment/Plan Chief Complaint/Hosp Course 1. NSTEMI 2. GI bleed/ PUD 3. HTN 4. DM 5. Severe anemia due to above 6. dyslipidemia 7. hx TIA 8. HX of poor compliance 9. liver lesion: f/u with GI rec 10. fluid overload. Recommendations: s/p transfusions. he is not on ASA now due to his active GI bleed. RECOMMEND STARTING ECASA 81 mg po daily as soon as ok with GI. so far GI has requested a month off of asa for now. f/u with GI consultation I will CONT the patient on carvedilol and lipitor for now. Diabetic management/insulin as per internal medicine. Thank you for his referral will continue to follow along with you prn. ADELFO CHOE MD FACC Problems: ADELFO CHOE MD Aug 06, 2017 08:29
[2017-08-06] MEDS ORDERED: MAGNESIUM SULFATE 3 GM in DEXTROSE 5% 100 ML IVPB ONE (10:00)
--- NOTE | 2017-08-06 13:39 | RADRPT ---
PROCEDURE: MR Abdomen. CLINICAL INDICATION: Rule out neoplasm TECHNIQUE: MRI abdomen without contrast was performed on the a high-resolution, high [place] field [facility] scanner. Patient was examined with IV contrast. 20 cc Magnevist IV contrast would administe red. Findings were reviewed on a high-resolution PACS workstation. COMPARISON: CT 08/04/2017 FINDINGS: MRI Abdomen: Limited evaluation secondary to large amount of motion artifact. Hepatic morphology is within limits. Previously noted dome of the liver indeterminate lesion is not clearly identified on current MRI scan due to large amount of bleeding/motion artifact. Gallbladder is unremarkable. No evidence of intrahepatic or extrahepatic biliary dilatation. Common bile duct is within normal limits. The spleen is unremarkable. There is fatty atrophy of the pancreas. Both adrenal glands are within normal limits. Both kidneys are and normal anatomic position. Bilateral renal cysts are noted. No evidence of obstr uction or hydronephrosis. There is bilateral renal atrophy. The visualized GI tract demonstrate normal caliber loops of small and large bowel. Blooming artifact is noted overlying the pylorus of the stomach. No evidence of bowel obstruction. The aorta is within limits. No significant retroperitoneal lymphadenopathy. Age appropriate marrow signal changes are noted. The spinal canal demonstrates areas is stenosis wit hin the lower lumbosacral spine. There is generalized atrophy of the paraspinal muscles. IMPRESSION: 1. 1.8 cm lesion within the dome of the right lobe liver is not clearly identified or characterized on current MRI due to large amount of bleeding/motion artifact. Recommend follow-up CT scan with IV contrast following a multi phase liver protocol. 2. BLOOMING ARTIFACT OVERLYING THE PYLORUS OF THE STOMACH, CONSISTENT WITH A LINEAR METALLIC ABNORMA LITY WITHIN THE STOMACH. CORRELATE WITH CLINICAL HISTORY OF POSSIBLE FOREIGN BODY INGESTION VERSUS P OST SURGICAL HISTORY. 3. Bilateral renal atrophy and renal cysts. No evidence of obstruction or hydronephrosis. 4. No evidence of bowel obstruction. Physician Kevin Date Time Electronically viewed and signed by Physician Kevin on 08/06/2017 13:39 JL/
[2017-08-06 15:06] VITALS: BP 135/60; RESP 18
[2017-08-06] MEDS ORDERED: IODIXANOL LOCM 100 ML BTL ONE (16:27)
[2017-08-06] MEDS ORDERED: SOD CHLORIDE 0.9% 100 ML ONE (16:27)
[2017-08-06 17:46] LABS: ADD UMIC NO; UR ASCORBIC ACID NEGATIVE (NEGATIVE); UR BILIRUBIN (Dip) NEGATIVE (NEGATIVE); UR BLOOD (Dip) NEGATIVE (NEGATIVE); UR CLARITY CLEAR (CLEAR); UR COLOR YELLOW (YELLOW); UR GLUCOSE (Dip) 2+ mg/dL (NEGATIVE); UR KETONES (Dip) NEGATIVE (NEGATIVE); UR LEUKOCYTE ESTERASE (Dip) NEGATIVE Leu/ul (NEGATIVE); UR NITRITE (Dip) NEGATIVE (NEGATIVE); UR SPECIFIC GRAVITY (Dip) 1.023 (1.003-1.030); UR TOTAL PROTEIN (Dip) NEGATIVE (NEGATIVE); UR UROBILINOGEN (Dip) 1+ mg/dL (NEGATIVE)
--- NOTE | 2017-08-06 18:14 | PN ---
Date/Time of Note Date/Time of Note DATE: 08/06/17 TIME: 18:06 Assessment/Plan VTE Prophylaxis VTE Prophylaxis Intervention: SCD's Lines/Catheters IV [facility] (from [facility] [place] Urinary Cath still in place: No Assessment/Plan Chief Complaint/Hosp Course Patient spiked a fever last night, will obtain a urine and blood cultures, chest x-ray. Dr. Oglesby discussed patient's condition and plan of care with the patient's daughter over the phone. Assessment/Plan - NSTEMI. Dr. Cook is following in cardiology consultation. Due to high risk for a GI rebleeding patient is not advised to hold aspirin for one month per GI. - GI bleed. Prepyloric ulcer status post 3 Hemoclips application during EGD. continue Protonix. Dr. Grove is following in gastroenterology consultation. - H pylori per biopsy, continue H pylori eradication regimen. - Anemia of acute blood loss, s/p blood transfusion. continue to monitor hemoglobin and hematocrit. - HTN - DM hemoglobin A1c 8.5. Continue Lantus and pre-meal NovoLog. - Dyslipidemia - Leukocytopenia, Dr. Marcelo is asked to see patient in hematology consultation - Indeterminate 1.8 cm lesion at the dome of the liver, visualized on MRI, pending CT of the abdomen with IV contrast per liver protocol. Further recommendations based on clinical course. Plan of care discussed with Dr. Oglesby. Problems: Exam/Review of Systems Vital Signs Vitals Vital Signs Date Time Temp Pulse Resp B/P Pulse Ox O2 Delivery O2 Flow Rate FiO2 08/06/17 15:06 98.6 85 18 135/60 97 08/06/17 13:58 21 Intake and Output 08/05/17 08/05/17 08/06/17 15:00 23:00 07:00 Intake Total 600 ml 600 ml Output Total 1050 ml 1600 ml Balance 600 ml -1050 ml -1000 ml Exam Constitutional: alert, oriented Respiratory: normal air movement Cardiovascular: nl pulses Gastrointestinal: non-tender, soft Musculoskeletal: nl extremities to inspection Extremities: normal pulses Results Result Diagram: 08/06/17 0540 08/06/17 0540 Results 24 hrs Laboratory Tests Test 08/05/17 21:11 08/06/17 02:17 08/06/17 05:40 08/06/17 07:55 Bedside Glucose 247 H 136 116 White Blood Count 3.6 L Red Blood Count 2.82 L Hemoglobin 8.5 L Hematocrit 26.0 L Mean Corpuscular Volume 92.2 Mean Corpuscular Hemoglobin 30.1 Mean Corpuscular Hemoglobin Concent 32.7 Red Cell Distribution Width 16.6 H Platelet Count 144 Mean Platelet Volume 10.5 H Neutrophils % 44.5 Lymphocytes % 26.2 Monocytes % 20.1 H Eosinophils % 7.5 H Basophils % 0.3 Nucleated Red Blood Cells % 0.0 Neutrophils # 1.6 Lymphocytes # 0.9 Monocytes # 0.7 Eosinophils # 0.3 Basophils # 0.0 Nucleated Red Blood Cells # 0.0 Sodium Level 135 Potassium Level 4.0 Chloride Level 101 Carbon Dioxide Level 29 Anion Gap 9 Blood Urea Nitrogen 15 Creatinine 1.21 Glucose Level 101 Calcium Level 8.2 L Magnesium Level 1.5 L Total Bilirubin 1.1 Direct Bilirubin 0.00 Indirect Bilirubin 1.1 Aspartate Amino Transf (AST/SGOT) 20 Alanine Aminotransferase (ALT/SGPT) 31 Alkaline Phosphatase 62 B-Type Natriuretic Peptide 430 Total Protein 5.7 L Albumin 2.6 L Globulin 3.10 Albumin/Globulin Ratio 0.83 Test 08/06/17 12:02 08/06/17 17:00 08/06/17 17:17 Bedside Glucose 110 242 H Urine Color YELLOW Urine Clarity CLEAR Urine pH 6.0 Urine Specific [place] 1.023 Urine Ketones NEGATIVE Urine Nitrite NEGATIVE Urine Bilirubin NEGATIVE Urine Urobilinogen 1+ H Urine Leukocyte Esterase NEGATIVE Urine Hemoglobin NEGATIVE Urine Glucose 2+ H Urine Total Protein NEGATIVE Medications Medications Current Medications Insulin Glargine (Lantus) 15 unit QHS SC Last administered on 08/05/17t 22:10 ; Admin Dose 15 UNIT; Start 07/28/17 at 21:00 Miscellaneous Information 1 ea NOTE XX ; Start 07/28/17 at 19:30 Glucose (Glutose) 15 gm Q15M PRN PO DECREASED GLUCOSE; Start 07/28/17 at 19:30 Glucose (Glutose) 22.5 gm Q15M PRN PO DECREASED GLUCOSE; Start 07/28/17 at 19: 30 Dextrose (D50w Syringe) 25 ml Q15M PRN IV DECREASED GLUCOSE; Start 07/28/17 at 19:30 Dextrose (D50w Syringe) 50 ml Q15M PRN IV DECREASED GLUCOSE; Start 07/28/17 at 19:30 Glucagon (Glucagen) 1 mg Q15M PRN IM DECREASED GLUCOSE; Start 07/28/17 at 19: 30 Glucose (Glutose) 15 gm Q15M PRN BUCCAL DECREASED GLUCOSE; Start 07/28/17 at 19:30 Carvedilol (Coreg) 6.25 mg BID PO Last administered on 08/06/17 07:57; Admin Dose 6.25 MG; Start 07/29/17 at 21:00 Atorvastatin Calcium (Lipitor) 80 mg HS PO Last administered on 08/05/17 21: 18; Admin Dose 80 MG; Start 07/29/17 at 21:00 Acetaminophen (Tylenol Tab) 500 mg Q4H PRN PO PAIN AND OR ELEVATED TEMP Last administered on 07/31/17 11:12; Admin Dose 500 MG; Start 07/31/17 at 11:30 Pantoprazole (Protonix Tab) 40 mg BID@06,18 PO Last administered on 08/06/17 17:17; Admin Dose 40 MG; Start 07/31/17 at 18:00 Clarithromycin (Biaxin) 500 mg BID PO Last administered on 08/06/17 07:57; Admin Dose 500 MG; Start 08/01/17 at 21:00; Stop 08/10/17 at 20:59 Amoxicillin (Amoxicillin) 1,000 mg BID PO Last administered on 08/06/17 07:57 ; Admin Dose 1,000 MG; Start 08/01/17 at 21:00; Stop 08/11/17 at 20:59 Diagnostic Test (Pha) (Accu-Chek) 02 XX ; Start 08/05/17 at 02:00 AKIRA ADAMS Aug 06, 2017 18:13
--- NOTE | 2017-08-06 18:22 | RADRPT ---
PROCEDURE: CT Abdomen and Pelvis with and without contrast with multiphase liver imaging protocol. CLINICAL INDICATION: Hepatic lesion, incompletely characterized on prior imaging. TECHNIQUE: Four phase CT scan of the abdomen and pelvis was performed before and after the uneventf ul intravenous administration of 100 cc of Visipaque 320. Coronal and sagittal reformatted images w ere obtained from the axial source images. The total exam CTDI equals 18.73, 17.87, 19.42, 18.28 mG y and the total exam DLP equals 3061.55 mGy-cm. DICOM images are available. Evaluation is partially limited due to motion artifact. One or more of the following dose reduction techniques were used: - Automated exposure control. - Adjustment of the mA and/or kV according to patient size. - Use of iterative reconstruction technique. COMPARISON: Noncontrast CT dated 08/04/2017 and MRI dated 08/06/2017. FINDINGS: Visualized lower thorax: The visualized lung bases are clear. The visualized heart is enlarged and there are multivessel coronary artery calcifications. Hepatobiliary system and spleen: There is a 2.3 cm lesion at the dome of the liver that is partiall y spontaneously hyperdense, but which appears to demonstrate arterial enhancement and washout on the delayed imaging. No additional focal hepatic lesion is identified. There is no intra or extrahepati c biliary ductal dilatation. The gallbladder is unremarkable. The spleen is unremarkable. The pancre as is unremarkable. Genitourinary system and adrenal glands: The adrenal glands are unremarkable. There is simple bilat eral renal cysts. There is no nephrolithiasis, hydronephrosis, or renal mass. The urinary bladder is unremarkable. The prostate gland is large measuring 4.9 cm in diameter. The seminal vesicles are un remarkable. There are moderate left and small right fat containing inguinal hernias. Gastrointestinal system: There is no bowel wall thickening or evidence of obstruction. The appendix is in the right lower quadrant and is unremarkable. Peritoneum, vascular system, lymphatics: There is no free intraperitoneal air or free fluid. There is no mesenteric or retroperitoneal adenopathy. There are atherosclerotic changes of the aorta, whic h is nonaneurysmal. Musculoskeletal system: There are no concerning osseous lesions. A mild L1 compression deformity is unchanged. IMPRESSION: 1. Lesion measuring 2.3 cm at the dome of the liver that contains hemorrhagic or proteinaceous cont ents, but also appears to demonstrate arterial enhancement and washout, which is suspicious for neop lasm. Follow-up multiphase CT scan and 3-6 months is recommended. 2. Multivessel coronary artery calcifications and atherosclerotic changes of the aorta. 3. Enlarged prostate gland. Correlate with PSA. 4. Cardiomegaly. 5. Mild L1 compression deformity, unchanged. RPTAT: HLBP .Fernando Melgar MD, MD Date Time Electronically viewed and signed by .Fernando Melgar MD, on 08/06/2017 18:22 .P/
[2017-08-06 20:00] VITALS: BP 138/61; RESP 20
[2017-08-06] MEDS: ATORVASTATIN 80 MG TAB PO SCH (21:10)
[2017-08-06] MEDS: INSULIN GLARGINE [LANtus] 3 ML PEN SC SCH (21:13)
[2017-08-07 01:56] VITALS: BP 128/58; RESP 20
[2017-08-07] MEDS: ACCU-CHEK XX SCH (02:00)
[2017-08-07] MEDS: ALBUTEROL/IPRATROPIUM (NEB) 3 ML AMP HHN SCH ×2 (02:13→20:36)
[2017-08-07 05:53] LABS: EOSINOPHILS # 0.3 10^3/ul (0.0-0.5); EOSINOPHILS % 8.5 % (0.0-7.0); HEMATOCRIT 23.2 % (42.0-52.0); HEMOGLOBIN 7.8 g/dl (14.0-18.0); LYMPHOCYTES # 0.9 10^3/ul (0.8-2.9); LYMPHOCYTES % 27.1 % (15.0-51.0); MEAN CORPUSCULAR HEMOGLOBIN 30.2 pg (29.0-33.0); MEAN CORPUSCULAR HGB CONC 33.6 g/dl (32.0-37.0); MEAN CORPUSCULAR VOLUME 89.9 fl (82.0-101.0); MEAN PLATELET VOLUME 10.1 fl (7.4-10.4); MONOCYTE # 0.7 10^3/ul (0.3-0.9); NEUTROPHIL # 1.5 10^3/ul (1.6-7.5); NEUTROPHILS % 43.2 % (39.0-77.0); PLATELET COUNT 137 10^3/UL (140-415); RED BLOOD COUNT 2.58 10^6/ul (4.70-6.10); RED CELL DISTRIBUTION WIDTH 16.2 % (11.5-14.5); WHITE BLOOD COUNT 3.4 10^3/ul (4.8-10.8)
[2017-08-07] MEDS: PANTOPRAZOLE (EC) 40 MG TAB PO SCH ×2 (05:57→17:23)
[2017-08-07 06:33] LABS: ALBUMIN 2.5 g/dl (3.3-4.9); ALBUMIN/GLOBULIN RATIO 0.75; BILIRUBIN,INDIRECT 0.9 mg/dl (0-1.1); BILIRUBIN,TOTAL 0.9 mg/dl (0.2-1.3); CALCIUM 8.1 mg/dl (8.4-10.2); CREATININE 1.08 mg/dl (0.61-1.24); POTASSIUM 3.7 mmol/L (3.5-5.1); TOTAL PROTEIN 5.8 g/dl (6.1-8.1)
--- NOTE | 2017-08-07 07:24 | PN ---
DATE: 08/06/2017 SUBJECTIVE: At this time the patient has no complaints. The patient got admitted with hemoglobin o f 6 grams. Upper endoscopy showed evidence of a large prepyloric ulcer. The ulcer was closed with Hemoclips. Now the hemoglobin is in the range of ____, on admission it was 8.2. PHYSICAL EXAMINATION: GENERAL: The patient is alert. VITAL SIGNS: Normal. ABDOMEN: Soft. CLINICAL IMPRESSION: Stable bleeding prepyloric ulcer. At this time, no active bleeding noted. PLAN: Recommend continue Protonix. Recommend repeat the colonoscopy in 6 weeks. Dictated By: JULIO KING MD NC/NTS Conf#: [id number] DID#: [id number] CC: ASHOK KAN MD;*EndCC*
[2017-08-07 07:42] VITALS: BP 121/60; RESP 16
[2017-08-07] MEDS: AMOXICILLIN 500 MG CAP PO SCH ×2 (07:56→21:15)
[2017-08-07] MEDS: CLARITHROMYCIN 500 MG TAB PO SCH ×2 (07:56→21:15)
[2017-08-07] MEDS: INSULIN ASPART [NOVOLOG] 3 ML PEN SC SCH ×7 (07:58→21:19)
--- NOTE | 2017-08-07 08:34 | CONS ---
Date/Time of Note Date/Time of Note DATE: 08/07/17 TIME: 08:32 Consult Date/Type/Reason Admit Date/Time Jul 28, 2017 at 17:35 Initial Consult Date 07/28/17 Type of Consultation: cardiology Ordering Provider: AMBER FINLEY Subjective cardiology follow up note: S: Discussed with the staff and physicians. Patient denies any active chest pain or pressure to me. Denies any active bleeding to me. Denies any palpitation to me. s/p EGD on 07/30/17 showing PUD. he denies sob now O: General: obese no acute distress HEENT: NC/AT. pupils are equal. round. NECK: NO JVD. no stridor. CV: RRR. systolic murmur; no gallop or rubs. PULM: no wheezing GI: SOFT, NT, ND, no rebound or guarding Extremity: trace B/L LE edema. no clubbing. neuro: awake and alert, OX3. Psych: calm and pleasant rectal: deferred DERM: Multiple diffuse ecchymosis. EG reviewed; NSR. Nonspecific ST-T wave abnormalities echo reviewed; 1. Normal left ventricular cavity size. Mild concentric left ventricular hypertrophy. Ejection fraction is visually estimated at 50 %. Tissue Doppler/Mitral Doppler indices are consistent with impaired relaxation (Stage I diastolic dysfunction). Multiple segmental wall motion abnormalities. These segments of the LV are hypokinetic mid anterior segment, apical anterior segment. and apical septum. 2. Normal appearance of the mitral valve. Mild mitral annular calcification. Trace mitral regurgitation. 3. Aortic valve not well visualized. No hemodynamically significant aortic stenosis by doppler. Aortic cusps appear moderately calcified. Mild aortic valve regurgitation. 4. Normal appearance of the tricuspid valve. Estimated peak PA systolic pressure 33 mmHg. There is trace tricuspid regurgitation. CT and MRI abd results were reviewed. Objective Vital Signs Date Time Temp Pulse Resp B/P Pulse Ox O2 Delivery O2 Flow Rate FiO2 08/07/17 07:42 99.3 84 16 121/60 94 08/07/17 02:14 27 08/07/17 02:14 2.0 Intake and Output 08/06/17 08/06/17 08/07/17 15:00 23:00 07:00 Intake Total 300 ml 1046 ml Output Total 500 ml 240 ml Balance 300 ml 546 ml -240 ml Results/Medications Result Diagram: 08/07/17 0527 08/07/17 0527 Results 24 hrs Laboratory Tests Test 08/06/17 12:02 08/06/17 17:00 08/06/17 17:17 08/06/17 21:08 Bedside Glucose 110 242 H 246 H Urine Color YELLOW Urine Clarity CLEAR Urine pH 6.0 Urine Specific [place] 1.023 Urine Ketones NEGATIVE Urine Nitrite NEGATIVE Urine Bilirubin NEGATIVE Urine Urobilinogen 1+ H Urine Leukocyte Esterase NEGATIVE Urine Hemoglobin NEGATIVE Urine Glucose 2+ H Urine Total Protein NEGATIVE Test 08/07/17 01:58 08/07/17 05:27 08/07/17 07:58 Bedside Glucose 160 129 White Blood Count 3.4 L Red Blood Count 2.58 L Hemoglobin 7.8 L Hematocrit 23.2 L Mean Corpuscular Volume 89.9 Mean Corpuscular Hemoglobin 30.2 Mean Corpuscular Hemoglobin Concent 33.6 Red Cell Distribution Width 16.2 H Platelet Count 137 L Mean Platelet Volume 10.1 Neutrophils % 43.2 Lymphocytes % 27.1 Monocytes % 20.0 H Eosinophils % 8.5 H Basophils % 0.0 Nucleated Red Blood Cells % 0.0 Neutrophils # 1.5 L Lymphocytes # 0.9 Monocytes # 0.7 Eosinophils # 0.3 Basophils # 0.0 Nucleated Red Blood Cells # 0.0 Sodium Level 134 L Potassium Level 3.7 Chloride Level 101 Carbon Dioxide Level 29 Anion Gap 8 Blood Urea Nitrogen 16 Creatinine 1.08 Glucose Level 116 Calcium Level 8.1 L Magnesium Level 2.0 Total Bilirubin 0.9 Direct Bilirubin 0.00 Indirect Bilirubin 0.9 Aspartate Amino Transf (AST/SGOT) 16 Alanine Aminotransferase (ALT/SGPT) 31 Alkaline Phosphatase 66 Total Protein 5.8 L Albumin 2.5 L Globulin 3.30 H Albumin/Globulin Ratio 0.75 Medications Current Medications Insulin Glargine (Lantus) 15 unit QHS SC Last administered on 08/06/17t 21:13 ; Admin Dose 15 UNIT; Start 07/28/17 at 21:00 Miscellaneous Information 1 ea NOTE XX ; Start 07/28/17 at 19:30 Glucose (Glutose) 15 gm Q15M PRN PO DECREASED GLUCOSE; Start 07/28/17 at 19:30 Glucose (Glutose) 22.5 gm Q15M PRN PO DECREASED GLUCOSE; Start 07/28/17 at 19: 30 Dextrose (D50w Syringe) 25 ml Q15M PRN IV DECREASED GLUCOSE; Start 07/28/17 at 19:30 Dextrose (D50w Syringe) 50 ml Q15M PRN IV DECREASED GLUCOSE; Start 07/28/17 at 19:30 Glucagon (Glucagen) 1 mg Q15M PRN IM DECREASED GLUCOSE; Start 07/28/17 at 19: 30 Glucose (Glutose) 15 gm Q15M PRN BUCCAL DECREASED GLUCOSE; Start 07/28/17 at 19:30 Carvedilol (Coreg) 6.25 mg BID PO Last administered on 08/07/17 07:57; Admin Dose 6.25 MG; Start 07/29/17 at 21:00 Atorvastatin Calcium (Lipitor) 80 mg HS PO Last administered on 08/06/17 21: 10; Admin Dose 80 MG; Start 07/29/17 at 21:00 Acetaminophen (Tylenol Tab) 500 mg Q4H PRN PO PAIN AND OR ELEVATED TEMP Last administered on 07/31/17 11:12; Admin Dose 500 MG; Start 07/31/17 at 11:30 Pantoprazole (Protonix Tab) 40 mg BID@06,18 PO Last administered on 08/07/17 05:57; Admin Dose 40 MG; Start 07/31/17 at 18:00 Clarithromycin (Biaxin) 500 mg BID PO Last administered on 08/07/17 07:56; Admin Dose 500 MG; Start 08/01/17 at 21:00; Stop 08/10/17 at 20:59 Amoxicillin (Amoxicillin) 1,000 mg BID PO Last administered on 08/07/17 07:56 ; Admin Dose 1,000 MG; Start 08/01/17 at 21:00; Stop 08/11/17 at 20:59 Diagnostic Test (Pha) (Accu-Chek) 1 ea 02 XX ; Start 08/05/17 at 02:00 Assessment/Plan Chief Complaint/Hosp Course 1. NSTEMI 2. GI bleed/ PUD 3. HTN 4. DM 5. Severe anemia due to above 6. dyslipidemia 7. hx TIA 8. HX of poor compliance 9. liver lesion: f/u with GI rec 10. fluid overload. Recommendations: s/p transfusions. consider more transfusions given his OH. he is not on ASA now due to his active GI bleed. RECOMMEND STARTING ECASA 81 mg po daily as soon as ok with GI. so far GI has requested a month off of asa for now. I will CONT the patient on carvedilol and lipitor for now. Diabetic management/insulin as per internal medicine. liver mass work up as per IM/ GI rec. consider heme/onc or GI surgery consultations. Thank you for his referral will continue to follow along with you prn. ADELFO CHOE MD FAC Problems: ADELFO CHOE MD Aug 07, 2017 08:34
--- NOTE | 2017-08-07 13:03 | PN ---
Date/Time of Note Date/Time of Note DATE: 08/07/17 TIME: 12:59 Assessment/Plan VTE Prophylaxis VTE Prophylaxis Intervention: SCD's Lines/Catheters IV [facility] Urinary Cath still in place: No Assessment/Plan Chief Complaint/Hosp Course Hemoglobin is 7.8 today patient is undergoing blood transfusion, no fever. Assessment/Plan - NSTEMI. Dr. Cook is following in cardiology consultation. Due to high risk for a GI rebleeding patient is not advised to hold aspirin for one month per GI. - GI bleed. Prepyloric ulcer status post 3 Hemoclips application during EGD. continue Protonix. Dr. Grove is following in gastroenterology consultation. - H pylori per biopsy, continue H pylori eradication regimen. - Anemia of acute blood loss, s/p blood transfusion. continue to monitor hemoglobin and hematocrit. - HTN, patient is currently normotensive - DM hemoglobin A1c 8.5. Continue Lantus and pre-meal NovoLog. - Dyslipidemia - 2.3 cm lesion at the dome of the liver and leukocytopenia, Dr. Marcelo is following in hematology consultation Further recommendations based on clinical course. Plan of care discussed with Dr. Oglesby. Problems: Exam/Review of Systems Vital Signs Vitals Vital Signs Date Time Temp Pulse Resp B/P Pulse Ox O2 Delivery O2 Flow Rate FiO2 08/07/17 07:42 99.3 84 16 121/60 94 08/07/17 02:14 27 08/07/17 02:14 2.0 Intake and Output 08/06/17 08/06/17 08/07/17 15:00 23:00 07:00 Intake Total 300 ml 1046 ml Output Total 500 ml 240 ml Balance 300 ml 546 ml -240 ml Exam Constitutional: alert, oriented Respiratory: normal air movement Cardiovascular: nl pulses Gastrointestinal: non-tender, soft Musculoskeletal: nl extremities to inspection Extremities: normal pulses Results Result Diagram: 08/07/17 0527 08/07/17 0527 Results 24 hrs Laboratory Tests Test 08/06/17 17:00 08/06/17 17:17 08/06/17 21:08 08/07/17 01:58 Urine Color YELLOW Urine Clarity CLEAR Urine pH 6.0 Urine Specific [place] 1.023 Urine Ketones NEGATIVE Urine Nitrite NEGATIVE Urine Bilirubin NEGATIVE Urine Urobilinogen 1+ H Urine Leukocyte Esterase NEGATIVE Urine Hemoglobin NEGATIVE Urine Glucose 2+ H Urine Total Protein NEGATIVE Bedside Glucose 242 H 246 H 160 Test 08/07/17 05:27 08/07/17 07:58 08/07/17 12:01 White Blood Count 3.4 L Red Blood Count 2.58 L Hemoglobin 7.8 L Hematocrit 23.2 L Mean Corpuscular Volume 89.9 Mean Corpuscular Hemoglobin 30.2 Mean Corpuscular Hemoglobin Concent 33.6 Red Cell Distribution Width 16.2 H Platelet Count 137 L Mean Platelet Volume 10.1 Neutrophils % 43.2 Lymphocytes % 27.1 Monocytes % 20.0 H Eosinophils % 8.5 H Basophils % 0.0 Nucleated Red Blood Cells % 0.0 Neutrophils # 1.5 L Lymphocytes # 0.9 Monocytes # 0.7 Eosinophils # 0.3 Basophils # 0.0 Nucleated Red Blood Cells # 0.0 Sodium Level 134 L Potassium Level 3.7 Chloride Level 101 Carbon Dioxide Level 29 Anion Gap 8 Blood Urea Nitrogen 16 Creatinine 1.08 Glucose Level 116 Calcium Level 8.1 L Magnesium Level 2.0 Total Bilirubin 0.9 Direct Bilirubin 0.00 Indirect Bilirubin 0.9 Aspartate Amino Transf (AST/SGOT) 16 Alanine Aminotransferase (ALT/SGPT) 31 Alkaline Phosphatase 66 Total Protein 5.8 L Albumin 2.5 L Globulin 3.30 H Albumin/Globulin Ratio 0.75 Bedside Glucose 129 118 Medications Medications Current Medications Insulin Glargine (Lantus) 15 unit QHS SC Last administered on 08/06/17t 21:13 ; Admin Dose 15 UNIT; Start 07/28/17 at 21:00 Miscellaneous Information 1 ea NOTE XX ; Start 07/28/17 at 19:30 Glucose (Glutose) 15 gm Q15M PRN PO DECREASED GLUCOSE; Start 07/28/17 at 19:30 Glucose (Glutose) 22.5 gm Q15M PRN PO DECREASED GLUCOSE; Start 07/28/17 at 19: 30 Dextrose (D50w Syringe) 25 ml Q15M PRN IV DECREASED GLUCOSE; Start 07/28/17 at 19:30 Dextrose (D50w Syringe) 50 ml Q15M PRN IV DECREASED GLUCOSE; Start 07/28/17 at 19:30 Glucagon (Glucagen) 1 mg Q15M PRN IM DECREASED GLUCOSE; Start 07/28/17 at 19: 30 Glucose (Glutose) 15 gm Q15M PRN BUCCAL DECREASED GLUCOSE; Start 07/28/17 at 19:30 Carvedilol (Coreg) 6.25 mg BID PO Last administered on 08/07/17 07:57; Admin Dose 6.25 MG; Start 07/29/17 at 21:00 Atorvastatin Calcium (Lipitor) 80 mg HS PO Last administered on 08/06/17 21: 10; Admin Dose 80 MG; Start 07/29/17 at 21:00 Acetaminophen (Tylenol Tab) 500 mg Q4H PRN PO PAIN AND OR ELEVATED TEMP Last administered on 07/31/17 11:12; Admin Dose 500 MG; Start 07/31/17 at 11:30 Pantoprazole (Protonix Tab) 40 mg BID@06,18 PO Last administered on 08/07/17 05:57; Admin Dose 40 MG; Start 07/31/17 at 18:00 Clarithromycin (Biaxin) 500 mg BID PO Last administered on 08/07/17 07:56; Admin Dose 500 MG; Start 08/01/17 at 21:00; Stop 08/10/17 at 20:59 Amoxicillin (Amoxicillin) 1,000 mg BID PO Last administered on 08/07/17 07:56 ; Admin Dose 1,000 MG; Start 08/01/17 at 21:00; Stop 08/11/17 at 20:59 Diagnostic Test (Pha) (Accu-Chek) 1 ea 02 XX ; Start 08/05/17 at 02:00 AKIRA ADAMS Aug 07, 2017 13:03
[2017-08-07 13:29] VITALS: BP 131/61; RESP 16
--- NOTE | 2017-08-07 16:28 | CONS ---
Date/Time of Note Date/Time of Note DATE: 08/07/17 TIME: 15:43 Assessment/Plan Assessment/Plan Chief Complaint/Hosp Course #Leukopenia -I have reviewed the peripheral smear and there is no evidence of blasts or dysplastic cells. -At this time patient is not acutely infected and I do not believe pt would benefit from growth factor support. 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 if elevated this would confirm our diagnosis. -primary team to discuss with family whether or not they would like to persue a bx. A biopsy could also confirm a diagnosis. -will also consult hepatobiliary surgery to see if patient would be a surgical candidate #Anemia -2/2 GI bleed -s/p blood transfusion and IV iron -will check full anemia workup at this time # NSTEMI. - Dr. Cook is following in cardiology consultation. - Due to high risk for a GI rebleeding patient,ASA is on hold for one month #HTN -BP currently ok -continue management per Primary team #DM - is not advised to hold aspirin for one month per GI. - hemoglobin A1c 8.5. Continue Lantus and pre-meal NovoLog. #Hyperlipidemia -continue statin per Primary team Problems: Consultation Date/Type/Reason Admit Date/Time Jul 28, 2017 at 17:35 Date of Consultation: Aug 07, 2017 Type of Consultation: Oncology Reason for Consultation liver mass and leukopenia Referring Provider: ASHOK KAN MD Hx of Present Illness 81-year-old man who originally presented to [facility] on 07/28 with complaints of dizziness 2 weeks and 3 days of tarry stool, without bright red blood per rectum. Since admission patient has undergone endoscopy which revealed a prepyloric ulcer is likely the source of the GI bleed. 3 clips were applied to prevent bleeding in help healing. Biopsy of the ulcer was negative for malignancy but there was evidence of H. pylori for which she is now on treatment. Patient has since received blood transfusion and IV iron since admission. On further workup patient had a CT done that revealed a liver mass. This was evaluated on abdominal MRI and triple phase CT. The triple phase CT done on 08/06/17 revealed a 2.3 cm lesion in the dome of the liver that demonstrated arterial enhancement and washout which was suspicious for neoplasm. Currently it is unclear if the family wants to pursue biopsy of this lesion. Since admission patient was also noted to have a leukopenia with anemia and mild from the cytopenia. We have been consulted for further evaluation of his laboratory abnormalities. Constitutional: no complaints Eyes: no complaints ENT: no complaints Respiratory: no complaints Cardiovascular: no complaints Gastrointestinal: no complaints Genitourinary: no complaints Musculoskeletal: no complaints Past Medical History Diabetes Gastric ulcer Anemia Family History Significant Family History: no pertinent family hx Social History Alcohol Use: none Smoking Status: Never smoker Drug Use: none Exam/Review of Systems Vital Signs Vitals Vital Signs Date Time Temp Pulse Resp B/P Pulse Ox O2 Delivery O2 Flow Rate FiO2 08/07/17 13:29 98.3 83 16 131/61 96 08/07/17 02:14 27 08/07/17 02:14 2.0 Intake and Output 08/06/17 08/06/17 08/07/17 15:00 23:00 07:00 Intake Total 300 ml 1046 ml Output Total 500 ml 240 ml Balance 300 ml 546 ml -240 ml Exam Constitutional: alert, oriented Psych: no complaints Head: normocephalic Eyes: nl conjunctiva ENMT: nl external ears & nose Neck: non-tender, supple Respiratory: clear to auscultation Cardiovascular: regular rate and rhythm Gastrointestinal: soft Musculoskeletal: nl extremities to inspection Results Result Diagram: 08/07/1752608/07/17526 Results 24 hrs Laboratory Tests Test 08/06/17 17:00 08/06/17 17:17 08/06/17 21:08 08/07/17 01:58 Urine Color YELLOW Urine Clarity CLEAR Urine pH 6.0 Urine Specific [place] 1.023 Urine Ketones NEGATIVE Urine Nitrite NEGATIVE Urine Bilirubin NEGATIVE Urine Urobilinogen 1+ H Urine Leukocyte Esterase NEGATIVE Urine Hemoglobin NEGATIVE Urine Glucose 2+ H Urine Total Protein NEGATIVE Bedside Glucose 242 H 246 H 160 Test 08/07/17 05:27 08/07/17 07:58 08/07/17 12:01 White Blood Count 3.4 L Red Blood Count 2.58 L Hemoglobin 7.8 L Hematocrit 23.2 L Mean Corpuscular Volume 89.9 Mean Corpuscular Hemoglobin 30.2 Mean Corpuscular Hemoglobin Concent 33.6 Red Cell Distribution Width 16.2 H Platelet Count 137 L Mean Platelet Volume 10.1 Neutrophils % 43.2 Lymphocytes % 27.1 Monocytes % 20.0 H Eosinophils % 8.5 H Basophils % 0.0 Nucleated Red Blood Cells % 0.0 Neutrophils # 1.5 L Lymphocytes # 0.9 Monocytes # 0.7 Eosinophils # 0.3 Basophils # 0.0 Nucleated Red Blood Cells # 0.0 Sodium Level 134 L Potassium Level 3.7 Chloride Level 101 Carbon Dioxide Level 29 Anion Gap 8 Blood Urea Nitrogen 16 Creatinine 1.08 Glucose Level 116 Calcium Level 8.1 L Magnesium Level 2.0 Total Bilirubin 0.9 Direct Bilirubin 0.00 Indirect Bilirubin 0.9 Aspartate Amino Transf (AST/SGOT) 16 Alanine Aminotransferase (ALT/SGPT) 31 Alkaline Phosphatase 66 Total Protein 5.8 L Albumin 2.5 L Globulin 3.30 H Albumin/Globulin Ratio 0.75 Bedside Glucose 129 118 Medications Medications Current Medications Insulin Glargine (Lantus) 15 unit QHS SC Last administered on 08/06/17 21:13 ; Admin Dose 15 UNIT; Start 07/28/17 at 21:00 Miscellaneous Information 1 ea NOTE XX ; Start 07/28/17 at 19:30 Glucose (Glutose) 15 gm Q15M PRN PO DECREASED GLUCOSE; Start 07/28/17 at 19:30 Glucose (Glutose) 22.5 gm Q15M PRN PO DECREASED GLUCOSE; Start 07/28/17 at 19: 30 Dextrose (D50w Syringe) 25 ml Q15M PRN IV DECREASED GLUCOSE; Start 07/28/17 at 19:30 Dextrose (D50w Syringe) 50 ml Q15M PRN IV DECREASED GLUCOSE; Start 07/28/17 at 19:30 Glucagon (Glucagen) 1 mg Q15M PRN IM DECREASED GLUCOSE; Start 07/28/17 at 19: 30 Glucose (Glutose) 15 gm Q15M PRN BUCCAL DECREASED GLUCOSE; Start 07/28/17 at 19:30 Carvedilol (Coreg) 6.25 mg BID PO Last administered on 08/07/17 07:57; Admin Dose 6.25 MG; Start 07/29/17 at 21:00 Atorvastatin Calcium (Lipitor) 80 mg HS PO Last administered on 08/06/17 21: 10; Admin Dose 80 MG; Start 07/29/17 at 21:00 Acetaminophen (Tylenol Tab) 500 mg Q4H PRN PO PAIN AND OR ELEVATED TEMP Last administered on 07/31/17 11:12; Admin Dose 500 MG; Start 07/31/17 at 11:30 Pantoprazole (Protonix Tab) 40 mg BID@18 PO Last administered on 08/07/17 05:57; Admin Dose 40 MG; Start 07/31/17 at 18:00 Clarithromycin (Biaxin) 500 mg BID PO Last administered on 08/07/17 07:56; Admin Dose 500 MG; Start 08/01/17 at 21:00; Stop 08/10/17 at 20:59 Amoxicillin (Amoxicillin) 1,000 mg BID PO Last administered on 08/07/17 07:56 ; Admin Dose 1,000 MG; Start 08/01/17 at 21:00; Stop 08/11/17 at 20:59 Diagnostic Test (Pha) (Accu-Chek) 1 ea 02 XX ; Start 08/05/17 at 02:00 STEPHENIE VIDES M.D. Aug 07, 2017 15:53
[2017-08-07 17:32] LABS: RETICULOCYTE COUNT % 4.5 % (0.5-1.5)
[2017-08-07 17:56] LABS: IRON 17 ug/dl (35-150)
[2017-08-07 18:06] LABS: TOTAL IRON BINDING CAPACITY 214 ug/dl (241-421)
[2017-08-07 20:00] VITALS: BP 146/67; RESP 18
[2017-08-07] MEDS: ATORVASTATIN 80 MG TAB PO SCH (21:15)
--- NOTE | 2017-08-07 21:17 | PN ---
DATE: 08/07/2017 ADDENDUM I have had multiple discussions with the patient's daughter, Jackeline, in the last 3 days and I explained to her regarding the patient's low hemoglobin and need for blood transfusion, also need for further evaluation of the liver lesion. I also explained to her in detail that the patient's white cells and platelets are also low, and the patient was seen by Dr. Marcelo from a hematology standpoint and she is recommending consultation from Dr. Ralph Gallo For now , the patient will be given 2 units of PRBCs due to recent [place] and a hemoglobin of 7.8. Further recommendations will depend on the patient's hospital course and recommendations from multiple consultants. Dictated By: ASHOK KAN MD AB/NTS Conf#: [id number] DID#: [id number] CC: ASHOK KAN MD;*EndCC* MTDD
[2017-08-07] MEDS: INSULIN GLARGINE [LANtus] 3 ML PEN SC SCH (21:18)
[2017-08-08] MEDS: ALBUTEROL/IPRATROPIUM (NEB) 3 ML AMP HHN SCH ×4 (01:05→20:07)
[2017-08-08 02:00] VITALS: BP 128/58; RESP 20
[2017-08-08] MEDS: ACCU-CHEK XX SCH (02:00)
[2017-08-08 03:37] LABS: PROTEIN, TOTAL 5.3 g/dL (6.1-8.1)
[2017-08-08] MEDS: PANTOPRAZOLE (EC) 40 MG TAB PO SCH ×2 (05:28→17:51)
[2017-08-08 06:13] LABS: BASOPHILS % 0.3 % (0.0-2.0); EOSINOPHILS # 0.4 10^3/ul (0.0-0.5); HEMATOCRIT 29.8 % (42.0-52.0); LYMPHOCYTES # 0.9 10^3/ul (0.8-2.9); LYMPHOCYTES % 28.4 % (15.0-51.0); MEAN CORPUSCULAR HEMOGLOBIN 29.9 pg (29.0-33.0); MEAN CORPUSCULAR HGB CONC 33.6 g/dl (32.0-37.0); MEAN CORPUSCULAR VOLUME 89.2 fl (82.0-101.0); MEAN PLATELET VOLUME 10.1 fl (7.4-10.4); MONOCYTE # 0.7 10^3/ul (0.3-0.9); MONOCYTES % 21.5 % (0.0-11.0); NEUTROPHIL # 1.2 10^3/ul (1.6-7.5); NEUTROPHILS % 35.9 % (39.0-77.0); PLATELET COUNT 151 10^3/UL (140-415); RED BLOOD COUNT 3.34 10^6/ul (4.70-6.10); RED CELL DISTRIBUTION WIDTH 15.4 % (11.5-14.5); WHITE BLOOD COUNT 3.3 10^3/ul (4.8-10.8)
[2017-08-08 07:04] LABS: ALBUMIN 2.6 g/dl (3.3-4.9); ALBUMIN/GLOBULIN RATIO 0.76; BILIRUBIN,INDIRECT 1.2 mg/dl (0-1.1); BILIRUBIN,TOTAL 1.2 mg/dl (0.2-1.3); CREATININE 1.06 mg/dl (0.61-1.24)
[2017-08-08 07:29] LABS: PROSTATE SPECIFIC ANTIGEN 2.6 ng/ml (0.0-4.0)
[2017-08-08 07:48] VITALS: BP 119/63; RESP 18
[2017-08-08] MEDS: INSULIN ASPART [NOVOLOG] 3 ML PEN SC SCH ×7 (08:15→20:58)
[2017-08-08] MEDS: CLARITHROMYCIN 500 MG TAB PO SCH ×2 (08:31→20:50)
[2017-08-08] MEDS: AMOXICILLIN 500 MG CAP PO SCH ×2 (08:31→20:48)
--- NOTE | 2017-08-08 10:23 | CONS ---
Date/Time of Note Date/Time of Note DATE: 08/08/17 TIME: 10:21 Consult Date/Type/Reason Admit Date/Time Jul 28, 2017 at 17:35 Initial Consult Date 07/28/17 Type of Consultation: card Ordering Provider: ASHOK KAN MD Subjective cardiology follow up note: S: Discussed with the staff and physicians. Patient denies any active chest pain or pressure to me. Denies any active bleeding to me. Denies any palpitation to me. s/p EGD on 07/30/17 showing PUD. he denies sob now O: General: obese no acute distress HEENT: NC/AT. pupils are equal. round. NECK: NO JVD. no stridor. CV: RRR. systolic murmur; no gallop or rubs. PULM: no wheezing GI: SOFT, NT, ND, no rebound or guarding Extremity: trace B/L LE edema. no clubbing. neuro: awake and alert, OX3. Psych: calm and pleasant rectal: deferred DERM: Multiple diffuse ecchymosis. EG reviewed; NSR. Nonspecific ST-T wave abnormalities echo reviewed; 1. Normal left ventricular cavity size. Mild concentric left ventricular hypertrophy. Ejection fraction is visually estimated at 50 %. Tissue Doppler/Mitral Doppler indices are consistent with impaired relaxation (Stage I diastolic dysfunction). Multiple segmental wall motion abnormalities. These segments of the LV are hypokinetic mid anterior segment, apical anterior segment. and apical septum. 2. Normal appearance of the mitral valve. Mild mitral annular calcification. Trace mitral regurgitation. 3. Aortic valve not well visualized. No hemodynamically significant aortic stenosis by doppler. Aortic cusps appear moderately calcified. Mild aortic valve regurgitation. 4. Normal appearance of the tricuspid valve. Estimated peak PA systolic pressure 33 mmHg. There is trace tricuspid regurgitation. CT and MRI abd results were reviewed. Objective Vital Signs Date Time Temp Pulse Resp B/P Pulse Ox O2 Delivery O2 Flow Rate FiO2 08/08/17 07:55 88 22 94 21 08/08/17 07:48 99.6 119/63 08/07/17 02:14 2.0 Intake and Output 08/07/17 08/07/17 08/08/17 15:00 23:00 07:00 Intake Total 580 ml 350 ml Output Total 450 ml Balance 130 ml 350 ml Results/Medications Result Diagram: 08/08/17 0525 08/08/17 0525 Results 24 hrs Laboratory Tests Test 08/07/17 12:01 08/07/17 17:15 08/07/17 17:24 08/07/17 21:12 Bedside Glucose 118 78 236 H Absolute Reticulocyte Count 0.134 H Percent Reticulocyte Count 4.5 H Iron Level 17 L Total Iron Binding Capacity 214 L Percent Iron Saturation 8 L Ferritin 349.0 H Lactate Dehydrogenase 553 Total Protein (PEP) 5.3 L Albumin (PEP) Pending [id number] Pending [id number] Pending Beta Globulins Pending Gamma Globulins Pending Protein Electrophoresis Interpret Pending Alpha Fetoprotein 1.65 Vitamin B12 Level > 1000 H Test 08/08/17 02:34 08/08/17 05:25 08/08/17 08:00 Bedside Glucose 235 H 97 White Blood Count 3.3 L Red Blood Count 3.34 #L Hemoglobin 10.0 #L Hematocrit 29.8 #L Mean Corpuscular Volume 89.2 Mean Corpuscular Hemoglobin 29.9 Mean Corpuscular Hemoglobin Concent 33.6 Red Cell Distribution Width 15.4 H Platelet Count 151 Mean Platelet Volume 10.1 Neutrophils % 35.9 L Lymphocytes % 28.4 Monocytes % 21.5 H Eosinophils % 13.0 H Basophils % 0.3 Nucleated Red Blood Cells % 0.0 Neutrophils # 1.2 L Lymphocytes # 0.9 Monocytes # 0.7 Eosinophils # 0.4 Basophils # 0.0 Nucleated Red Blood Cells # 0.0 Sodium Level 135 Potassium Level 4.0 Chloride Level 100 Carbon Dioxide Level 28 Anion Gap 11 Blood Urea Nitrogen 13 Creatinine 1.06 Glucose Level 127 Calcium Level 8.0 L Total Bilirubin 1.2 Direct Bilirubin 0.00 Indirect Bilirubin 1.2 H Aspartate Amino Transf (AST/SGOT) 16 Alanine Aminotransferase (ALT/SGPT) 28 Alkaline Phosphatase 69 Total Protein 6.0 L Albumin 2.6 L Globulin 3.40 H Albumin/Globulin Ratio 0.76 Prostate Specific Antigen 2.6 Medications Current Medications Insulin Glargine (Lantus) 15 unit QHS SC Last administered on 08/07/17t 21:18 ; Admin Dose 15 UNIT; Start 07/28/17 at 21:00 Miscellaneous Information 1 ea NOTE XX ; Start 07/28/17 at 19:30 Glucose (Glutose) 15 gm Q15M PRN PO DECREASED GLUCOSE; Start 07/28/17 at 19:30 Glucose (Glutose) 22.5 gm Q15M PRN PO DECREASED GLUCOSE; Start 07/28/17 at 19: 30 Dextrose (D50w Syringe) 25 ml Q15M PRN IV DECREASED GLUCOSE; Start 07/28/17 at 19:30 Dextrose (D50w Syringe) 50 ml Q15M PRN IV DECREASED GLUCOSE; Start 07/28/17 at 19:30 Glucagon (Glucagen) 1 mg Q15M PRN IM DECREASED GLUCOSE; Start 07/28/17 at 19: 30 Glucose (Glutose) 15 gm Q15M PRN BUCCAL DECREASED GLUCOSE; Start 07/28/17 at 19:30 Carvedilol (Coreg) 6.25 mg BID PO Last administered on 08/08/17 08:33; Admin Dose 6.25 MG; Start 07/29/17 at 21:00 Atorvastatin Calcium (Lipitor) 80 mg HS PO Last administered on 08/07/17 21: 15; Admin Dose 80 MG; Start 07/29/17 at 21:00 Acetaminophen (Tylenol Tab) 500 mg Q4H PRN PO PAIN AND OR ELEVATED TEMP Last administered on 07/31/17 11:12; Admin Dose 500 MG; Start 07/31/17 at 11:30 Pantoprazole (Protonix Tab) 40 mg BID@06,18 PO Last administered on 08/08/17 05:28; Admin Dose 40 MG; Start 07/31/17 at 18:00 Clarithromycin (Biaxin) 500 mg BID PO Last administered on 08/08/17 08:31; Admin Dose 500 MG; Start 08/01/17 at 21:00; Stop 08/10/17 at 20:59 Amoxicillin (Amoxicillin) 1,000 mg BID PO Last administered on 08/08/17 08:31 ; Admin Dose 1,000 MG; Start 08/01/17 at 21:00; Stop 08/11/17 at 20:59 Diagnostic Test (Pha) (Accu-Chek) 1 ea 02 XX ; Start 08/05/17 at 02:00 Assessment/Plan Chief Complaint/Hosp Course 1. NSTEMI 2. GI bleed/ PUD 3. HTN 4. DM 5. Severe anemia due to above 6. dyslipidemia 7. hx TIA 8. HX of poor compliance 9. liver lesion: f/u with GI rec 10. fluid overload. Recommendations: s/p transfusions. Hgb is stable today. . he is not on ASA now due to his active GI bleed. RECOMMEND STARTING ECASA 81 mg po daily as soon as ok with GI. so far GI has requested a month off of asa for now. I will CONT the patient on carvedilol and lipitor for now. Diabetic management/insulin as per internal medicine. liver mass work up as per IM/ GI/ hem onc will need bell angiogram IF any major surgery is anticipated for risk stratification prior to the surgery. for now will await hem.onc work up. Thank you for his referral will continue to follow along with you. ADELFO CHOE MD [facility] Problems: DAELFO CHOE MD Aug 08, 2017 10:23
--- NOTE | 2017-08-08 11:15 | CONS ---
Date/Time of Note Date/Time of Note DATE: 08/08/17 TIME: 11:11 Assessment/Plan Assessment/Plan Chief Complaint/Hosp Course #Leukopenia -I have reviewed the peripheral smear and there is no evidence of blasts or dysplastic cells. -At this time patient is not acutely infected and I do not believe pt would benefit from growth factor support. 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 A biopsy could also confirm a diagnosis. -will also consult hepatobiliary surgery to see if patient would be a surgical candidate #Anemia -2/2 GI bleed -s/p blood transfusion and IV iron -anemia panel is consistent with iron deficiency -will order 3 more days of Ferrlecit # NSTEMI. - Dr. Cook is following in cardiology consultation. - Due to high risk for a GI rebleeding patient,ASA is on hold for one month #HTN -BP currently ok -continue management per Primary team #DM - is not advised to hold aspirin for one month per GI. - hemoglobin A1c 8.5. Continue Lantus and pre-meal NovoLog. #Hyperlipidemia -continue statin per Primary team Problems: Consultation Date/Type/Reason Admit Date/Time Jul 28, 2017 at 17:35 Initial Consult Date 08/07/17 Type of Consultation: Hematology Reason for Consultation liver mass/ anemia Referring Provider: ASHOK KAN MD 24 HR Interval Summary Free Text/Dictation pt received blood transfusion yesterday Exam/Review of Systems Vital Signs Vitals Vital Signs Date Time Temp Pulse Resp B/P Pulse Ox O2 Delivery O2 Flow Rate FiO2 08/08/17 07:55 88 22 94 21 08/08/17 07:48 99.6 119/63 08/07/17 02:14 2.0 Intake and Output 08/07/17 08/07/17 08/08/17 15:00 23:00 07:00 Intake Total 580 ml 350 ml Output Total 450 ml Balance 130 ml 350 ml Exam Constitutional: alert, frail, oriented Psych: nl mood/affect, no complaints Head: normocephalic Eyes: nl conjunctiva ENMT: nl external ears & nose Neck: non-tender, supple Respiratory: clear to auscultation Cardiovascular: regular rate and rhythm Gastrointestinal: soft Musculoskeletal: nl extremities to inspection Results Result Diagram: 08/08/17 0525 08/08/17 0525 Results 24 hrs Laboratory Tests Test 08/07/17 12:01 08/07/17 17:15 08/07/17 17:24 08/07/17 21:12 Bedside Glucose 118 78 236 H Absolute Reticulocyte Count 0.134 H Percent Reticulocyte Count 4.5 H Iron Level 17 L Total Iron Binding Capacity 214 L Percent Iron Saturation 8 L Ferritin 349.0 H Lactate Dehydrogenase 553 Total Protein (PEP) 5.3 L Albumin (PEP) Pending [id number] Pending [id number]-9-[id number] Pending Beta Globulins Pending Gamma Globulins Pending Protein Electrophoresis Interpret Pending Alpha Fetoprotein 1.65 Vitamin B12 Level > 1000 H Test 08/08/17 02:34 08/08/17 05:25 08/08/17 08:00 Bedside Glucose 235 H 97 White Blood Count 3.3 L Red Blood Count 3.34 #L Hemoglobin 10.0 #L Hematocrit 29.8 #L Mean Corpuscular Volume 89.2 Mean Corpuscular Hemoglobin 29.9 Mean Corpuscular Hemoglobin Concent 33.6 Red Cell Distribution Width 15.4 H Platelet Count 151 Mean Platelet Volume 10.1 Neutrophils % 35.9 L Lymphocytes % 28.4 Monocytes % 21.5 H Eosinophils % 13.0 H Basophils % 0.3 Nucleated Red Blood Cells % 0.0 Neutrophils # 1.2 L Lymphocytes # 0.9 Monocytes # 0.7 Eosinophils # 0.4 Basophils # 0.0 Nucleated Red Blood Cells # 0.0 Sodium Level 135 Potassium Level 4.0 Chloride Level 100 Carbon Dioxide Level 28 Anion Gap 11 Blood Urea Nitrogen 13 Creatinine 1.06 Glucose Level 127 Calcium Level 8.0 L Total Bilirubin 1.2 Direct Bilirubin 0.00 Indirect Bilirubin 1.2 H Aspartate Amino Transf (AST/SGOT) 16 Alanine Aminotransferase (ALT/SGPT) 28 Alkaline Phosphatase 69 Total Protein 6.0 L Albumin 2.6 L Globulin 3.40 H Albumin/Globulin Ratio 0.76 Prostate Specific Antigen 2.6 Medications Medications Current Medications Insulin Glargine (Lantus) 15 unit QHS SC Last administered on 08/07/17t 21:18 ; Admin Dose 15 UNIT; Start 07/28/17 at 21:00 Miscellaneous Information 1 ea NOTE XX ; Start 07/28/17 at 19:30 Glucose (Glutose) 15 gm Q15M PRN PO DECREASED GLUCOSE; Start 07/28/17 at 19:30 Glucose (Glutose) 22.5 gm Q15M PRN PO DECREASED GLUCOSE; Start 07/28/17 at 19: 30 Dextrose (D50w Syringe) 25 ml Q15M PRN IV DECREASED GLUCOSE; Start 07/28/17 at 19:30 Dextrose (D50w Syringe) 50 ml Q15M PRN IV DECREASED GLUCOSE; Start 07/28/17 at 19:30 Glucagon (Glucagen) 1 mg Q15M PRN IM DECREASED GLUCOSE; Start 07/28/17 at 19: 30 Glucose (Glutose) 15 gm Q15M PRN BUCCAL DECREASED GLUCOSE; Start 07/28/17 at 19:30 Carvedilol (Coreg) 6.25 mg BID PO Last administered on 08/08/17 08:33; Admin Dose 6.25 MG; Start 07/29/17 at 21:00 Atorvastatin Calcium (Lipitor) 80 mg HS PO Last administered on 08/07/17 21: 15; Admin Dose 80 MG; Start 07/29/17 at 21:00 Acetaminophen (Tylenol Tab) 500 mg Q4H PRN PO PAIN AND OR ELEVATED TEMP Last administered on 07/31/17 11:12; Admin Dose 500 MG; Start 07/31/17 at 11:30 Pantoprazole (Protonix Tab) 40 mg BID@06,18 PO Last administered on 08/08/17 05:28; Admin Dose 40 MG; Start 07/31/17 at 18:00 Clarithromycin (Biaxin) 500 mg BID PO Last administered on 08/08/17 08:31; Admin Dose 500 MG; Start 08/01/17 at 21:00; Stop 08/10/17 at 20:59 Amoxicillin (Amoxicillin) 1,000 mg BID PO Last administered on 08/08/17 08:31 ; Admin Dose 1,000 MG; Start 08/01/17 at 21:00; Stop 08/11/17 at 20:59 Diagnostic Test (Pha) (Accu-Chek) 1 ea 02 XX ; Start 08/05/17 at 02:00 STEPHENIE VIDES M.D. Aug 08, 2017 11:14
[2017-08-08] MEDS: SOD FERRIC GLUC COMPLX 125 MG in SOD CHLORIDE 0.9% 100 ML IVPB SCH (13:03)
--- NOTE | 2017-08-08 13:32 | PN ---
Date/Time of Note Date/Time of Note DATE: 08/08/17 TIME: 13:27 Assessment/Plan VTE Prophylaxis VTE Prophylaxis Intervention: SCD's Lines/Catheters IV [facility]from [facility] Urinary Cath still in place: No Assessment/Plan Chief Complaint/Hosp Course Today's hemoglobin is 10.1 after blood transfusion yesterday. Follow-up on urine and blood cultures. Assessment/Plan - NSTEMI. Dr. Cook is following in cardiology consultation. Due to high risk for a GI rebleeding patient is not advised to hold aspirin for one month per GI. - GI bleed. Prepyloric ulcer status post 3 Hemoclips application during EGD. continue Protonix. Dr. Grove is following in gastroenterology consultation. - H pylori per biopsy, continue H pylori eradication regimen. - Anemia of acute blood loss, s/p blood transfusion. continue to monitor hemoglobin and hematocrit. - HTN, patient is currently normotensive - DM hemoglobin A1c 8.5. Continue Lantus and pre-meal NovoLog. - Dyslipidemia - 2.3 cm lesion at the dome of the liver and leukocytopenia, Dr. Marcelo is following in hematology consultation. Possible liver biopsy if family agrees. Dr. Gallo is asked to see patient in surgical consultation. Further recommendations based on clinical course. Plan of care discussed with Dr. Oglesby. Problems: Exam/Review of Systems Vital Signs Vitals Vital Signs Date Time Temp Pulse Resp B/P Pulse Ox O2 Delivery O2 Flow Rate FiO2 08/08/17 07:55 88 22 94 21 08/08/17 07:48 99.6 119/63 08/07/17 02:14 2.0 Intake and Output 08/07/17 08/07/17 08/08/17 15:00 23:00 07:00 Intake Total 580 ml 350 ml Output Total 450 ml Balance 130 ml 350 ml Exam Constitutional: alert, oriented Respiratory: normal air movement Cardiovascular: nl pulses Gastrointestinal: non-tender, soft Musculoskeletal: nl extremities to inspection Extremities: normal pulses Results Result Diagram: 08/08/17 0525 08/08/17 0525 Results 24 hrs Laboratory Tests Test 08/07/17 17:15 08/07/17 17:24 08/07/17 21:12 08/08/17 02:34 Absolute Reticulocyte Count 0.134 H Percent Reticulocyte Count 4.5 H Iron Level 17 L Total Iron Binding Capacity 214 L Percent Iron Saturation 8 L Ferritin 349.0 H Lactate Dehydrogenase 553 Total Protein (PEP) 5.3 L Albumin (PEP) Pending [id number] Pending Maivd-4-Gmoobeaom Pending Beta Globulins Pending Gamma Globulins Pending Protein Electrophoresis Interpret Pending Alpha Fetoprotein 1.65 Vitamin B12 Level > 1000 H Bedside Glucose 78 236 H 235 H Test 08/08/17 05:25 08/08/17 08:00 08/08/17 12:09 White Blood Count 3.3 L Red Blood Count 3.34 #L Hemoglobin 10.0 #L Hematocrit 29.8 #L Mean Corpuscular Volume 89.2 Mean Corpuscular Hemoglobin 29.9 Mean Corpuscular Hemoglobin Concent 33.6 Red Cell Distribution Width 15.4 H Platelet Count 151 Mean Platelet Volume 10.1 Neutrophils % 35.9 L Lymphocytes % 28.4 Monocytes % 21.5 H Eosinophils % 13.0 H Basophils % 0.3 Nucleated Red Blood Cells % 0.0 Neutrophils # 1.2 L Lymphocytes # 0.9 Monocytes # 0.7 Eosinophils # 0.4 Basophils # 0.0 Nucleated Red Blood Cells # 0.0 Sodium Level 135 Potassium Level 4.0 Chloride Level 100 Carbon Dioxide Level 28 Anion Gap 11 Blood Urea Nitrogen 13 Creatinine 1.06 Glucose Level 127 Calcium Level 8.0 L Total Bilirubin 1.2 Direct Bilirubin 0.00 Indirect Bilirubin 1.2 H Aspartate Amino Transf (AST/SGOT) 16 Alanine Aminotransferase (ALT/SGPT) 28 Alkaline Phosphatase 69 Total Protein 6.0 L Albumin 2.6 L Globulin 3.40 H Albumin/Globulin Ratio 0.76 Prostate Specific Antigen 2.6 Bedside Glucose 97 166 Medications Medications Current Medications Insulin Glargine (Lantus) 15 unit QHS SC Last administered on 08/07/17t 21:18 ; Admin Dose 15 UNIT; Start 07/28/17 at 21:00 Miscellaneous Information 1 ea NOTE XX ; Start 07/28/17 at 19:30 Glucose (Glutose) 15 gm Q15M PRN PO DECREASED GLUCOSE; Start 07/28/17 at 19:30 Glucose (Glutose) 22.5 gm Q15M PRN PO DECREASED GLUCOSE; Start 07/28/17 at 19: 30 Dextrose (D50w Syringe) 25 ml Q15M PRN IV DECREASED GLUCOSE; Start 07/28/17 at 19:30 Dextrose (D50w Syringe) 50 ml Q15M PRN IV DECREASED GLUCOSE; Start 07/28/17 at 19:30 Glucagon (Glucagen) 1 mg Q15M PRN IM DECREASED GLUCOSE; Start 07/28/17 at 19: 30 Glucose (Glutose) 15 gm Q15M PRN BUCCAL DECREASED GLUCOSE; Start 07/28/17 at 19:30 Carvedilol (Coreg) 6.25 mg BID PO Last administered on 08/08/17 08:33; Admin Dose 6.25 MG; Start 07/29/17 at 21:00 Atorvastatin Calcium (Lipitor) 80 mg HS PO Last administered on 08/07/17 21: 15; Admin Dose 80 MG; Start 07/29/17 at 21:00 Acetaminophen (Tylenol Tab) 500 mg Q4H PRN PO PAIN AND OR ELEVATED TEMP Last administered on 07/31/17 11:12; Admin Dose 500 MG; Start 07/31/17 at 11:30 Pantoprazole (Protonix Tab) 40 mg BID@06,18 PO Last administered on 08/08/17 05:28; Admin Dose 40 MG; Start 07/31/17 at 18:00 Clarithromycin (Biaxin) 500 mg BID PO Last administered on 08/08/17 08:31; Admin Dose 500 MG; Start 08/01/17 at 21:00; Stop 08/10/17 at 20:59 Amoxicillin (Amoxicillin) 1,000 mg BID PO Last administered on 08/08/17 08:31 ; Admin Dose 1,000 MG; Start 08/01/17 at 21:00; Stop 08/11/17 at 20:59 Diagnostic Test (Pha) 1 ea 1 ea 02 XX ; Start 08/05/17 at 02:00 Ferric Sodium Gluconate Complex/ Sodium Chloride (Ferrlecit/NS) 110 ml @ 100 mls/hr Q24H IVPB Last administered on 08/08/17 13:03; Admin Dose 100 MLS/HR; Start 08/08/17 at 13:00; Stop 08/10/17 at 14:05 AKIRA ADAMS Aug 08, 2017 13:32
--- NOTE | 2017-08-08 14:23 | CONS ---
Date/Time of Note Date/Time of Note DATE: 08/08/17 TIME: 14:22 Assessment/Plan Assessment/Plan Additional Assessment/Plan [facility] INPATIENT CONSULTATION NOTE DATE OF SERVICE: 08/08/2017 PLACE OF SERVICE: [facility], floor ASSESSMENT AND PLAN: A very-pleasant 82-year-old gentleman with a number of comorbidities including H pylori related gastritis and ulcer likely explaining the anemia, presenting with an incidentally discovered 1-1/2 cm lesion in segment 8 of the liver that is not completely characterized as of yet. Available images show possibility of this lesion being benign (e.g. hemangioma) ; but there is also some enhancement with washout which could indicate hepatocellular carcinoma or other malignancies. Note that alpha-fetoprotein is normal. Other tumor markers are not available at this time. My index of suspicion is low for a primary or metastatic malignant process, but this can further be evaluated by biopsy. Alternatively, we could repeat the images in 3 months and have the patient under close surveillance. Currently, patient and family are somewhat hesitant to undergo a liver biopsy and I also do not think that it is absolutely critical that we perform a biopsy in this setting. Patient can certainly improved from his medical issues and be reevaluated with short-term follow-up and multidisciplinary care. I explained all of the above to the patient (no family in the room) through the help of a [facility] employed official florist and answered all questions. Patient appeared to understand and agreed with plans. Please note that I also attempted to call the patient's family on the number that we have available on the electronic health record systems. Unfortunately, there was no answer and the voicemail was full. With above assessment, I've recommended the followin. Continue current cares 2. Tumor marker checks including CA-19-9, CA 125 and CEA 3. Multidisciplinary tumor board presentation 4. Would hold off on biopsy for now unless the patient and family are agreeable 5. Repeat triple phase liver dedicated CT of the abdomen and pelvis November 2017 6. Follow-up with me as an outpatient after above Thank you very much for having me involved in the care of this very pleasant patient and wonderful family. If you have any questions, please feel free to contact me at [phone]. Nature of presenting problem: High severity Please note that, given the multiple number of diagnoses or management options, the extensive amount and/or complexity of data needed to be reviewed (including the extra time required to work through a florist), and high risk of complications and/or morbidity or mortality, this qualifies as high complexity type of decision-making. Disclaimers: 1. Inadvertent spelling and grammatical errors are likely due to electronic health record (EHR)/dictation software used and do not reflect on the quality of delivered patient care. 2. The electronic timestamp recorded on this note does not necessarily reflect the actual date and time of the visit or the service. 3. Portions of this note may have been created through electronic templates and computer algorithms that might bring in information either from the system or from other physicians and providers. Please note that such information may or may not contain errors, the occurrence of which are outside of my control. In general (but not always) this happens either in the beginning or at the end of the note. The portion of the note that I have created are generally done in 1 continuous block of text, flanked at the beginning and at the end by " ", and entered into one field in the EHR. 4. There may be other unanticipated errors in the note that are outside of my control. I can only attest to the portions of the note that I have created. Updated clinical summary: A very-pleasant 82-year-old gentleman with a number of comorbidities including H pylori related gastritis and ulcer likely explaining the anemia, presenting with an incidentally discovered 1-1/2 cm lesion in segment 8 of the liver that is not completely characterized as of yet. Available images show possibility of this lesion being benign (e.g. hemangioma); but there is also some enhancement with washout which could indicate hepatocellular carcinoma or other malignancies. Note that alpha-fetoprotein is normal. Comorbidities: 1. BMI 30.6 2. Bilateral renal atrophy and renal cysts 3. Multivessel coronary artery calcifications and atherosclerotic changes of the aorta 4. Enlarged prostate gland 5. Cardiomegaly 6. Mild L1 compression deformity 7. Mild thrombocytopenia (platelet counts between 120-150) 8. Anemia, thought to be secondary to GI bleeding; require transfusion July 2017 [facility] 9. Hemoglobin A1c 8.5 10. Albumin 2.6 after hydration 08/08/2017 11. Gastric ulcer, July 2017 [facility]. S/p an upper endoscopy 07/30/2017 where mild chronic gastritis and intestinal metaplasia was found with no evidence for H pylori or malignancy on the prepyloric ulcer biopsy. Stomach, antrum, lesser curvature, fundic biopsy showed antral and oxyntic mucosa showing mild chronic gastritis with intestinal metaplasia. Helicobacter pylori was identified. Again no evidence of malignancy found. 12. NSTEMI diagnosed at [facility] July 2017. 13. Hypertension 14. Dyslipidemia 15. History of TIA 16. History of poor compliance CONSULTATION REQUESTED BY: Alexandra Reardon, Dear Dr. Reardon, Thank you very much for the opportunity to participate in the care of this very pleasant gentleman and wonderful family. HISTORY OF PRESENT ILLNESS: The patient is a very pleasant 82-year-old gentleman with above-mentioned comorbidities whom we were kindly asked consult regarding management of his newly found lesion in segment 8 of his liver. This lesion was described in the radiology report dated 08/06/2017 at [facility] as a "lesion measuring 2.3 cm at the dome of the liver that contains hemorrhagic or proteinaceous contents, but also appears to demonstrate arterial enhancement and washout, which is suspicious for neoplasm. Follow-up multiphase CT scan and 3-6 months is recommended". Alpha-fetoprotein 1.65 on 08/07/2017. Patient also underwent an upper endoscopy 07/30/2017 where mild chronic gastritis and intestinal metaplasia was found with no evidence for H pylori or malignancy on the prepyloric ulcer biopsy. Stomach, antrum, lesser curvature, fundic biopsy showed antral and oxyntic mucosa showing mild chronic gastritis with intestinal metaplasia. Helicobacter pylori was identified. Again no evidence of malignancy found. Patient's initial presentation was for dizziness for 2 weeks. Also there was history of 3 day black tarry stool with no bright red blood in the toilet. Patient fell 2 weeks prior to presentation with low back pain. No fevers or chills or weight loss. No vomiting or diarrhea. No reported history of alcoholism or major medication intake. NSTEMI diagnosed at [facility] July 2017. During my visit, the patient did not have any major complaints. Please note that most of my information in this note is gathered through careful review of the available information on the electronic health record system. Patient does not speak Nepali very well and has been reported to be a poor historian. His family members also have been reported to be poor historians. ALLERGIES: NO KNOWN DRUG ALLERGIES MEDICATIONS Documented in the electronic records and reviewed by me. Please see the electronic records for details, as well as details for inpatient medications which were also reviewed by me. SOCIAL HISTORY: The patient lives with family.-Tob;-ETOH;-IVDU FAMILY HISTORY: There are no significant medical, surgical or oncologic issues in the family as reported by the patient or reflected in the chart. REVIEW OF SYSTEMS: Other than mentioned above, there were no other pertinent positives or pertinent negatives in an otherwise complete 14 point review of systems. PHYSICAL EXAMINATION GENERAL: The patient appears to be a very pleasant gentleman of non- /possibly [place]ad[place] descent lying in bed, appearing stated age, and otherwise in no acute distress. BMI: 30.6 VITAL SIGNS: AVSS (please also see auto important data if available as well as the electronic records) HEENT: Normocephalic and atraumatic. Extraocular muscles and hearing are grossly intact bilaterally and symmetrically. Sclerae are nonicteric. Oral cavity is clear; oral mucosa appear to be pink and moist. Dentition: poor. NECK: Supple. There is no lymphadenopathy or JVD. There is no submental, submandibular or supraclavicular lymphadenopathy. CHEST: Rises symmetrically with each breath; patient is breathing comfortably. There are no audible wheezes, rales or rhonchi on the gross exam. HEART: Pulse is regular and palpable on the right wrist. Capillary refill is normal. Carotid pulses are palpable bilaterally and symmetrically in the neck. EXTREMITIES: Lower extremities contain no pitting edema around the ankles bilaterally and symmetrically. ABDOMEN: Abdomen is soft, nontender and protuberant but nondistended. No evidence of ascites, organomegaly, caput medusae, engorged subcutaneous veins, or other abnormalities. There are no peritoneal signs or guarding. SKIN: Appears to be pink and feels warm to touch. NEUROLOGIC: Awake, alert, and follows commands appropriately. LABORATORY DATA: See below IMAGING: See electronic chart. Please note that I've personally reviewed all pertinent available images and I agree in general with their overall reported findings. CT scan abdomen and pelvis with and without contrast [facility] 08/06/2017 IMPRESSION: 1. Lesion measuring 2.3 cm at the dome of the liver that contains hemorrhagic or proteinaceous contents, but also appears to demonstrate arterial enhancement and washout, which is suspicious for neoplasm. Follow-up multiphase CT scan and 3-6 months is recommended. 2. Multivessel coronary artery calcifications and atherosclerotic changes of the aorta. 3. Enlarged prostate gland. Correlate with PSA. 4. Cardiomegaly. 5. Mild L1 compression deformity, unchanged. MRI abdomen with and without contrast [facility] 08/06/2017 IMPRESSION: 1. 1.8 cm lesion within the dome of the right lobe liver is not clearly identified or characterized on current MRI due to large amount of bleeding/ motion artifact. Recommend follow-up CT scan with IV contrast following a multi phase liver protocol. 2. BLOOMING ARTIFACT OVERLYING THE PYLORUS OF THE STOMACH, CONSISTENT WITH A LINEAR METALLIC ABNORMALITY WITHIN THE STOMACH. CORRELATE WITH CLINICAL HISTORY OF POSSIBLE FOREIGN BODY INGESTION VERSUS POST SURGICAL HISTORY. 3. Bilateral renal atrophy and renal cysts. No evidence of obstruction or hydronephrosis. 4. No evidence of bowel obstruction. Consultation Date/Type/Reason Admit Date/Time Jul 28, 2017 at 17:35 Social History Alcohol Use: none Smoking Status: Never smoker Drug Use: none Exam/Review of Systems Vital Signs Vitals Vital Signs Date Time Temp Pulse Resp B/P Pulse Ox O2 Delivery O2 Flow Rate FiO2 08/08/17 14:05 85 22 94 21 08/08/17 07:48 99.6 119/63 08/07/17 02:14 2.0 Intake and Output 08/07/17 08/07/17 08/08/17 15:00 23:00 07:00 Intake Total 580 ml 350 ml Output Total 450 ml Balance 130 ml 350 ml Results Result Diagram: 08/08/17 0525 08/08/17 0525 Results 24 hrs Laboratory Tests Test 08/07/17 17:15 08/07/17 17:24 08/07/17 21:12 08/08/17 02:34 Absolute Reticulocyte Count 0.134 H Percent Reticulocyte Count 4.5 H Iron Level 17 L Total Iron Binding Capacity 214 L Percent Iron Saturation 8 L Ferritin 349.0 H Lactate Dehydrogenase 553 Total Protein (PEP) 5.3 L Albumin (PEP) Pending [id number] Pending [id number] Pending Beta Globulins Pending Gamma Globulins Pending Protein Electrophoresis Interpret Pending Alpha Fetoprotein 1.65 Vitamin B12 Level > 1000 H Bedside Glucose 78 236 H 235 H Test 08/08/17 05:25 08/08/17 08:00 08/08/17 12:09 White Blood Count 3.3 L Red Blood Count 3.34 #L Hemoglobin 10.0 #L Hematocrit 29.8 #L Mean Corpuscular Volume 89.2 Mean Corpuscular Hemoglobin 29.9 Mean Corpuscular Hemoglobin Concent 33.6 Red Cell Distribution Width 15.4 H Platelet Count 151 Mean Platelet Volume 10.1 Neutrophils % 35.9 L Lymphocytes % 28.4 Monocytes % 21.5 H Eosinophils % 13.0 H Basophils % 0.3 Nucleated Red Blood Cells % 0.0 Neutrophils # 1.2 L Lymphocytes # 0.9 Monocytes # 0.7 Eosinophils # 0.4 Basophils # 0.0 Nucleated Red Blood Cells # 0.0 Sodium Level 135 Potassium Level 4.0 Chloride Level 100 Carbon Dioxide Level 28 Anion Gap 11 Blood Urea Nitrogen 13 Creatinine 1.06 Glucose Level 127 Calcium Level 8.0 L Total Bilirubin 1.2 Direct Bilirubin 0.00 Indirect Bilirubin 1.2 H Aspartate Amino Transf (AST/SGOT) 16 Alanine Aminotransferase (ALT/SGPT) 28 Alkaline Phosphatase 69 Total Protein 6.0 L Albumin 2.6 L Globulin 3.40 H Albumin/Globulin Ratio 0.76 Prostate Specific Antigen 2.6 Bedside Glucose 97 166 Medications Medications Current Medications Insulin Glargine (Lantus) 15 unit QHS SC Last administered on 08/07/17t 21:18 ; Admin Dose 15 UNIT; Start 07/28/17 at 21:00 Miscellaneous Information 1 ea NOTE XX ; Start 07/28/17 at 19:30 Glucose (Glutose) 15 gm Q15M PRN PO DECREASED GLUCOSE; Start 07/28/17 at 19:30 Glucose (Glutose) 22.5 gm Q15M PRN PO DECREASED GLUCOSE; Start 07/28/17 at 19: 30 Dextrose (D50w Syringe) 25 ml Q15M PRN IV DECREASED GLUCOSE; Start 07/28/17 at 19:30 Dextrose (D50w Syringe) 50 ml Q15M PRN IV DECREASED GLUCOSE; Start 07/28/17 at 19:30 Glucagon (Glucagen) 1 mg Q15M PRN IM DECREASED GLUCOSE; Start 07/28/17 at 19: 30 Glucose (Glutose) 15 gm Q15M PRN BUCCAL DECREASED GLUCOSE; Start 07/28/17 at 19:30 Carvedilol (Coreg) 6.25 mg BID PO Last administered on 08/08/17 08:33; Admin Dose 6.25 MG; Start 07/29/17 at 21:00 Atorvastatin Calcium (Lipitor) 80 mg HS PO Last administered on 08/07/17 21: 15; Admin Dose 80 MG; Start 07/29/17 at 21:00 Acetaminophen (Tylenol Tab) 500 mg Q4H PRN PO PAIN AND OR ELEVATED TEMP Last administered on 07/31/17 11:12; Admin Dose 500 MG; Start 07/31/17 at 11:30 Pantoprazole (Protonix Tab) 40 mg BID@06,18 PO Last administered on 08/08/17 05:28; Admin Dose 40 MG; Start 07/31/17 at 18:00 Clarithromycin (Biaxin) 500 mg BID PO Last administered on 08/08/17 08:31; Admin Dose 500 MG; Start 08/01/17 at 21:00; Stop 08/10/17 at 20:59 Amoxicillin (Amoxicillin) 1,000 mg BID PO Last administered on 08/08/17 08:31 ; Admin Dose 1,000 MG; Start 08/01/17 at 21:00; Stop 08/11/17 at 20:59 Diagnostic Test (Pha) 1 ea 1 ea 02 XX ; Start 08/05/17 at 02:00 Ferric Sodium Gluconate Complex/ Sodium Chloride (Ferrlecit/NS) 110 ml @ 100 mls/hr Q24H IVPB Last administered on 08/08/17 13:03; Admin Dose 100 MLS/HR; Start 08/08/17 at 13:00; Stop 08/10/17 at 14:05 FREDERICK MCCLOUD M.D. Aug 08, 2017 14:23
[2017-08-08 14:46] VITALS: BP 140/63; RESP 18
--- NOTE | 2017-08-08 14:49 | CONS ---
DATE OF ADMISSION: 07/28/2017 DATE OF CONSULTATION: HISTORY OF PRESENT ILLNESS: At this time, upon questioning the patient, patient has no abdominal pa in, no nausea, no vomiting. The patient was seen by me because of severe anemia. EGD showed eviden ce of a prepyloric ulcer which was treated with Hemoclip. At this time, hemoglobin up from 7.8 up t o 10 grams now. Examination of the abdomen is unremarkable. The patient had a CAT scan of the abdo men that showed evidence of a lesion at the dome of the liver and MRI was also done for further eval uation of this lesion and this MRI also reported the same thing as lesion in the dome of the liver, at the right lobe of the liver. They are recommending CAT scan of the abdomen with IV contrast. Liver functions were normal. Plan will wait for the results of the CAT scan of the abdomen with IV contrast. Dictated By: JULIO OLMOS/URIEL Conf#: [id number] DID#: [id number]
[2017-08-08 19:52] VITALS: BP 135/68; RESP 18
[2017-08-08] MEDS: ATORVASTATIN 80 MG TAB PO SCH (20:48)
[2017-08-08] MEDS: INSULIN GLARGINE [LANtus] 3 ML PEN SC SCH (20:57)
[2017-08-08 23:32] LABS: ALBUMIN 2.5 g/dL (3.8-4.8)
[2017-08-09] MEDS: ACCU-CHEK XX SCH (02:00)
[2017-08-09 02:14] VITALS: BP 108/56; RESP 20
[2017-08-09] MEDS: ALBUTEROL/IPRATROPIUM (NEB) 3 ML AMP HHN SCH ×4 (02:33→19:31)
[2017-08-09] MEDS: PANTOPRAZOLE (EC) 40 MG TAB PO SCH ×2 (06:06→17:21)
[2017-08-09 06:16] LABS: BASOPHILS % 0.5 % (0.0-2.0); EOSINOPHILS # 0.5 10^3/ul (0.0-0.5); EOSINOPHILS % 14.2 % (0.0-7.0); HEMATOCRIT 29.8 % (42.0-52.0); HEMOGLOBIN 9.9 g/dl (14.0-18.0); LYMPHOCYTES % 25.9 % (15.0-51.0); MEAN CORPUSCULAR HEMOGLOBIN 29.5 pg (29.0-33.0); MEAN CORPUSCULAR HGB CONC 33.2 g/dl (32.0-37.0); MEAN CORPUSCULAR VOLUME 88.7 fl (82.0-101.0); MONOCYTE # 0.7 10^3/ul (0.3-0.9); NEUTROPHIL # 1.5 10^3/ul (1.6-7.5); NEUTROPHILS % 39.6 % (39.0-77.0); PLATELET COUNT 176 10^3/UL (140-415); RED BLOOD COUNT 3.36 10^6/ul (4.70-6.10); RED CELL DISTRIBUTION WIDTH 15.4 % (11.5-14.5); WHITE BLOOD COUNT 3.8 10^3/ul (4.8-10.8)
[2017-08-09 07:02] LABS: CALCIUM 8.2 mg/dl (8.4-10.2); CREATININE 1.13 mg/dl (0.61-1.24); POTASSIUM 3.9 mmol/L (3.5-5.1)
[2017-08-09 07:22] LABS: CANCER ANTIGEN 125 11.9 U/ml (0.0-35.0); CARCINOEMBRYONIC ANTIGEN 6.2 ng/ml (0.0-5.0)
[2017-08-09 07:29] LABS: CANCER ANTIGEN 19-9 < 1.4 U/ml (0.0-37.0)
[2017-08-09 07:53] VITALS: BP 108/59; RESP 18
[2017-08-09] MEDS: INSULIN ASPART [NOVOLOG] 3 ML PEN SC SCH ×7 (08:01→20:39)
[2017-08-09] MEDS: AMOXICILLIN 500 MG CAP PO SCH ×2 (09:22→20:36)
[2017-08-09] MEDS: CLARITHROMYCIN 500 MG TAB PO SCH ×2 (09:22→20:36)
[2017-08-09] MEDS: SOD FERRIC GLUC COMPLX 125 MG in SOD CHLORIDE 0.9% 100 ML IVPB SCH (12:20)
[2017-08-09 14:39] VITALS: BP 138/65; RESP 16
--- NOTE | 2017-08-09 14:43 | CONS ---
Date/Time of Note Date/Time of Note DATE: 08/09/17 TIME: 14:42 Consult Date/Type/Reason Admit Date/Time Jul 28, 2017 at 17:35 Initial Consult Date 07/28/17 Type of Consultation: card Ordering Provider: ASHOK KAN MD Subjective cardiology follow up note: S: Discussed with the staff and physicians. Patient denies any active chest pain or pressure to me. Denies any active bleeding to me. Denies any palpitation to me. s/p EGD on 07/30/17 showing PUD. he denies sob now O: General: obese no acute distress HEENT: NC/AT. pupils are equal. round. NECK: NO JVD. no stridor. CV: RRR. systolic murmur; no gallop or rubs. PULM: no wheezing GI: SOFT, NT, ND, no rebound or guarding Extremity: trace B/L LE edema. no clubbing. neuro: awake and alert, OX3. Psych: calm and pleasant rectal: deferred DERM: Multiple diffuse ecchymosis. EG reviewed; NSR. Nonspecific ST-T wave abnormalities echo reviewed; 1. Normal left ventricular cavity size. Mild concentric left ventricular hypertrophy. Ejection fraction is visually estimated at 50 %. Tissue Doppler/Mitral Doppler indices are consistent with impaired relaxation (Stage I diastolic dysfunction). Multiple segmental wall motion abnormalities. These segments of the LV are hypokinetic mid anterior segment, apical anterior segment. and apical septum. 2. Normal appearance of the mitral valve. Mild mitral annular calcification. Trace mitral regurgitation. 3. Aortic valve not well visualized. No hemodynamically significant aortic stenosis by doppler. Aortic cusps appear moderately calcified. Mild aortic valve regurgitation. 4. Normal appearance of the tricuspid valve. Estimated peak PA systolic pressure 33 mmHg. There is trace tricuspid regurgitation. CT and MRI abd results were reviewed. Objective Vital Signs Date Time Temp Pulse Resp B/P Pulse Ox O2 Delivery O2 Flow Rate FiO2 08/09/17 14:39 99.4 84 16 138/65 96 08/09/17 13:48 21 08/07/17 02:14 2.0 Intake and Output 08/08/17 08/08/17 08/09/17 15:00 23:00 07:00 Intake Total 610 ml 1680 ml 700 ml Output Total 700 ml 1200 ml 900 ml Balance -90 ml 480 ml -200 ml Results/Medications Result Diagram: 08/09/17 0546 08/09/17 0546 Results 24 hrs Laboratory Tests Test 08/08/17 17:29 08/08/17 20:46 08/09/17 02:57 08/09/17 05:46 Bedside Glucose 139 209 110 White Blood Count 3.8 L Red Blood Count 3.36 L Hemoglobin 9.9 L Hematocrit 29.8 L Mean Corpuscular Volume 88.7 Mean Corpuscular Hemoglobin 29.5 Mean Corpuscular Hemoglobin Concent 33.2 Red Cell Distribution Width 15.4 H Platelet Count 176 Mean Platelet Volume 10.0 Neutrophils % 39.6 Lymphocytes % 25.9 Monocytes % 19.0 H Eosinophils % 14.2 H Basophils % 0.5 Nucleated Red Blood Cells % 0.0 Neutrophils # 1.5 L Lymphocytes # 1.0 Monocytes # 0.7 Eosinophils # 0.5 Basophils # 0.0 Nucleated Red Blood Cells # 0.0 Sodium Level 135 Potassium Level 3.9 Chloride Level 100 Carbon Dioxide Level 29 Anion Gap 10 Blood Urea Nitrogen 11 Creatinine 1.13 Glucose Level 84 # Calcium Level 8.2 L Carcinoembryonic Antigen 6.2 H CA 19-9 Antigen < 1.4 CA 125 Antigen 11.9 Test 08/09/17 08:01 08/09/17 12:24 Bedside Glucose 75 127 Medications Current Medications Insulin Glargine (Lantus) 15 unit QHS SC Last administered on 08/08/17t 20:57; Admin Dose 15 UNIT; Start 07/28/17 at 21:00 Miscellaneous Information 1 ea NOTE XX ; Start 07/28/17 at 19:30 Glucose (Glutose) 15 gm Q15M PRN PO DECREASED GLUCOSE; Start 07/28/17 at 19:30 Glucose (Glutose) 22.5 gm Q15M PRN PO DECREASED GLUCOSE; Start 07/28/17 at 19: 30 Dextrose (D50w Syringe) 25 ml Q15M PRN IV DECREASED GLUCOSE; Start 07/28/17 at 19:30 Dextrose (D50w Syringe) 50 ml Q15M PRN IV DECREASED GLUCOSE; Start 07/28/17 at 19:30 Glucagon (Glucagen) 1 mg Q15M PRN IM DECREASED GLUCOSE; Start 07/28/17 at 19: 30 Glucose (Glutose) 15 gm Q15M PRN BUCCAL DECREASED GLUCOSE; Start 07/28/17 at 19:30 Carvedilol (Coreg) 6.25 mg BID PO Last administered on 08/09/17 09:23; Admin Dose 6.25 MG; Start 07/29/17 at 21:00 Atorvastatin Calcium (Lipitor) 80 mg HS PO Last administered on 08/08/17 20:48 ; Admin Dose 80 MG; Start 07/29/17 at 21:00 Acetaminophen (Tylenol Tab) 500 mg Q4H PRN PO PAIN AND OR ELEVATED TEMP Last administered on 07/31/17 11:12; Admin Dose 500 MG; Start 07/31/17 at 11:30 Pantoprazole (Protonix Tab) 40 mg BID@06,18 PO Last administered on 08/09/17 06:06; Admin Dose 40 MG; Start 07/31/17 at 18:00 Clarithromycin (Biaxin) 500 mg BID PO Last administered on 08/09/17 09:22; Admin Dose 500 MG; Start 08/01/17 at 21:00; Stop 08/10/17 at 20:59 Amoxicillin (Amoxicillin) 1,000 mg BID PO Last administered on 08/09/17 09:22 ; Admin Dose 1,000 MG; Start 08/01/17 at 21:00; Stop 08/11/17 at 20:59 Diagnostic Test (Pha) 1 ea 1 ea 02 XX ; Start 08/05/17 at 02:00 Ferric Sodium Gluconate Complex/ Sodium Chloride (Ferrlecit/NS) 110 ml @ 100 mls/hr Q24H IVPB Last administered on 08/09/17 12:20; Admin Dose 100 MLS/HR; Start 08/08/17 at 13:00; Stop 08/10/17 at 14:05 Assessment/Plan Chief Complaint/Hosp Course 1. NSTEMI 2. GI bleed/ PUD 3. HTN 4. DM 5. Severe anemia due to above 6. dyslipidemia 7. hx TIA 8. HX of poor compliance 9. liver lesion: f/u with GI rec 10. fluid overload. Recommendations: s/p transfusions. Hgb is stable today. . he is not on ASA now due to his active GI bleed. RECOMMEND STARTING ECASA 81 mg po daily as soon as ok with GI. so far GI has requested a month off of asa for now. I will CONT the patient on carvedilol and lipitor for now. Diabetic management/insulin as per internal medicine. liver mass work up as per IM/ GI/ hem onc / surgery will need bell angiogram IF any major surgery is anticipated for risk stratification prior to the surgery. for now will await hem.onc work up. Thank you for his referral will continue to follow along with you. ADELFO CHOE MD [facility] Problems: ADELFO CHOE MD Aug 09, 2017 14:43
--- NOTE | 2017-08-09 16:06 | PN ---
Date/Time of Note Date/Time of Note DATE: 08/09/17 TIME: 16:05 Assessment/Plan Lines/Catheters IV [facility] Saline Lock Urinary Cath still in place: No Assessment/Plan Assessment/Plan - NSTEMI. Dr. Cook is following in cardiology consultation. Due to high risk for a GI rebleeding patient is not advised to hold aspirin for one month per GI. - GI bleed. Prepyloric ulcer status post 3 Hemoclips application during EGD. continue Protonix. Dr. Grove is following in gastroenterology consultation. - H pylori per biopsy, continue H pylori eradication regimen. - Anemia of acute blood loss, s/p blood transfusion. continue to monitor hemoglobin and hematocrit. - HTN, patient is currently normotensive - DM hemoglobin A1c 8.5. Continue Lantus and pre-meal NovoLog. - Dyslipidemia - 2.3 cm lesion at the dome of the liver and leukocytopenia, Dr. Marcelo is following in hematology consultation. Possible liver biopsy if family agrees. Dr. Gallo is asked to see patient in surgical consultation. Further recommendations based on clinical course. Plan of care discussed with Dr. Oglesby. Exam/Review of Systems Vital Signs Vitals Vital Signs Date Time Temp Pulse Resp B/P Pulse Ox O2 Delivery O2 Flow Rate FiO2 08/09/17 14:39 99.4 84 16 138/65 96 08/09/17 13:48 21 08/07/17 02:14 2.0 Intake and Output 08/08/17 08/08/17 08/09/17 15:00 23:00 07:00 Intake Total 610 ml 1680 ml 700 ml Output Total 700 ml 1200 ml 900 ml Balance -90 ml 480 ml -200 ml Exam Constitutional: alert Cardiovascular: nl pulses Gastrointestinal: non-tender, soft Musculoskeletal: nl extremities to inspection Extremities: normal pulses Results Result Diagram: 08/09/1746 08/09/1746 Results 24 hrs Laboratory Tests Test 08/08/17 17:29 08/08/17 20:46 08/09/17 02:57 08/09/17 05:46 Bedside Glucose 139 209 110 White Blood Count 3.8 L Red Blood Count 3.36 L Hemoglobin 9.9 L Hematocrit 29.8 L Mean Corpuscular Volume 88.7 Mean Corpuscular Hemoglobin 29.5 Mean Corpuscular Hemoglobin Concent 33.2 Red Cell Distribution Width 15.4 H Platelet Count 176 Mean Platelet Volume 10.0 Neutrophils % 39.6 Lymphocytes % 25.9 Monocytes % 19.0 H Eosinophils % 14.2 H Basophils % 0.5 Nucleated Red Blood Cells % 0.0 Neutrophils # 1.5 L Lymphocytes # 1.0 Monocytes # 0.7 Eosinophils # 0.5 Basophils # 0.0 Nucleated Red Blood Cells # 0.0 Sodium Level 135 Potassium Level 3.9 Chloride Level 100 Carbon Dioxide Level 29 Anion Gap 10 Blood Urea Nitrogen 11 Creatinine 1.13 Glucose Level 84 # Calcium Level 8.2 L Carcinoembryonic Antigen 6.2 H CA 19-9 Antigen < 1.4 CA 125 Antigen 11.9 Test 08/09/17 08:01 08/09/17 12:24 Bedside Glucose 75 127 Medications Medications Current Medications Insulin Glargine (Lantus) 15 unit QHS SC Last administered on 08/08/17 20:57; Admin Dose 15 UNIT; Start 07/28/17 at 21:00 Miscellaneous Information 1 ea NOTE XX ; Start 07/28/17 at 19:30 Glucose (Glutose) 15 gm Q15M PRN PO DECREASED GLUCOSE; Start 07/28/17 at 19:30 Glucose (Glutose) 22.5 gm Q15M PRN PO DECREASED GLUCOSE; Start 07/28/17 at 19: 30 Dextrose (D50w Syringe) 25 ml Q15M PRN IV DECREASED GLUCOSE; Start 07/28/17 at 19:30 Dextrose (D50w Syringe) 50 ml Q15M PRN IV DECREASED GLUCOSE; Start 07/28/17 at 19:30 Glucagon (Glucagen) 1 mg Q15M PRN IM DECREASED GLUCOSE; Start 07/28/17 at 19: 30 Glucose (Glutose) 15 gm Q15M PRN BUCCAL DECREASED GLUCOSE; Start 07/28/17 at 19:30 Carvedilol (Coreg) 6.25 mg BID PO Last administered on 08/09/17 09:23; Admin Dose 6.25 MG; Start 07/29/17 at 21:00 Atorvastatin Calcium (Lipitor) 80 mg HS PO Last administered on 08/08/17 20:48 ; Admin Dose 80 MG; Start 07/29/17 at 21:00 Acetaminophen (Tylenol Tab) 500 mg Q4H PRN PO PAIN AND OR ELEVATED TEMP Last administered on 07/31/17 11:12; Admin Dose 500 MG; Start 07/31/17 at 11:30 Pantoprazole (Protonix Tab) 40 mg BID@06,18 PO Last administered on 08/09/17 06:06; Admin Dose 40 MG; Start 07/31/17 at 18:00 Clarithromycin (Biaxin) 500 mg BID PO Last administered on 08/09/17 09:22; Admin Dose 500 MG; Start 08/01/17 at 21:00; Stop 08/10/17 at 20:59 Amoxicillin (Amoxicillin) 1,000 mg BID PO Last administered on 08/09/17 09:22 ; Admin Dose 1,000 MG; Start 08/01/17 at 21:00; Stop 08/11/17 at 20:59 Diagnostic Test (Pha) 1 ea 1 ea 02 XX ; Start 08/05/17 at 02:00 Ferric Sodium Gluconate Complex/ Sodium Chloride (Ferrlecit/NS) 110 ml @ 100 mls/hr Q24H IVPB Last administered on 08/09/17 12:20; Admin Dose 100 MLS/HR; Start 08/08/17 at 13:00; Stop 08/10/17 at 14:05 AMBER FINLEY Aug 09, 2017 16:06
[2017-08-09 20:00] VITALS: BP 130/62; RESP 20
[2017-08-09] MEDS: ATORVASTATIN 80 MG TAB PO SCH (20:37)
[2017-08-09] MEDS: INSULIN GLARGINE [LANtus] 3 ML PEN SC SCH (20:43)
[2017-08-10] MEDS: ALBUTEROL/IPRATROPIUM (NEB) 3 ML AMP HHN SCH ×4 (01:17→19:31)
[2017-08-10] MEDS: ACCU-CHEK XX SCH (01:53)
[2017-08-10 02:00] VITALS: BP 124/61; RESP 16
[2017-08-10] MEDS: ACETAMINOPHEN 500 MG TAB PO PRN (02:14)
[2017-08-10] MEDS: PANTOPRAZOLE (EC) 40 MG TAB PO SCH ×2 (05:17→17:34)
[2017-08-10 07:44] VITALS: BP 136/68; RESP 18
[2017-08-10] MEDS: INSULIN ASPART [NOVOLOG] 3 ML PEN SC SCH ×7 (08:15→20:37)
[2017-08-10] MEDS: AMOXICILLIN 500 MG CAP PO SCH ×2 (08:21→20:44)
[2017-08-10] MEDS: CLARITHROMYCIN 500 MG TAB PO SCH (08:21)
--- NOTE | 2017-08-10 12:39 | RADRPT ---
PROCEDURE: XR left Ankle. CLINICAL INDICATION: Swelling of the medial ankle TECHNIQUE: Three views of the left ankle were performed. COMPARISON: None. FINDINGS: There is old post-traumatic deformity of the medial malleolus. No acute fracture is identified. No e vidence for talar dome osteochondral defect. The bones are osteopenic. Moderate post-traumatic arthr osis of the ankle joint seen as anterior tibial plafonds spurring. No evidence for bone destructive or erosive change. There is a plantar calcaneal spur. There are atherosclerotic calcifications. IMPRESSION: 1. No acute fracture is seen. 2. 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 3. Osteopenia. 4. Atherosclerosis. RPTAT: XX .Jason Joyce MD, Date Time Electronically viewed and signed by .Jason Joyce MD, on 08/10/2017 12:39 .T/
[2017-08-10] MEDS: SOD FERRIC GLUC COMPLX 125 MG in SOD CHLORIDE 0.9% 100 ML IVPB SCH (13:29)
--- NOTE | 2017-08-10 14:11 | CONS ---
Date/Time of Note Date/Time of Note DATE: 08/10/17 TIME: 14:09 Consult Date/Type/Reason Admit Date/Time Jul 28, 2017 at 17:35 Initial Consult Date 07/28/17 Type of Consultation: card Ordering Provider: ASHOK KAN MD Subjective cardiology follow up note: S: Discussed with the staff and daughters Patient denies any active chest pain or pressure to me. Denies any active bleeding to me. Denies any palpitation to me. s/p EGD on 07/30/17 showing PUD. he denies sob now O: General: obese no acute distress HEENT: NC/AT. pupils are equal. round. NECK: NO JVD. no stridor. CV: RRR. systolic murmur; no gallop or rubs. PULM: no wheezing GI: SOFT, NT, ND, no rebound or guarding Extremity: trace B/L LE edema. no clubbing. neuro: awake and alert, OX3. Psych: calm and pleasant rectal: deferred DERM: Multiple diffuse ecchymosis. EG reviewed; NSR. Nonspecific ST-T wave abnormalities echo reviewed; 1. Normal left ventricular cavity size. Mild concentric left ventricular hypertrophy. Ejection fraction is visually estimated at 50 %. Tissue Doppler/Mitral Doppler indices are consistent with impaired relaxation (Stage I diastolic dysfunction). Multiple segmental wall motion abnormalities. These segments of the LV are hypokinetic mid anterior segment, apical anterior segment. and apical septum. 2. Normal appearance of the mitral valve. Mild mitral annular calcification. Trace mitral regurgitation. 3. Aortic valve not well visualized. No hemodynamically significant aortic stenosis by doppler. Aortic cusps appear moderately calcified. Mild aortic valve regurgitation. 4. Normal appearance of the tricuspid valve. Estimated peak PA systolic pressure 33 mmHg. There is trace tricuspid regurgitation. Objective Vital Signs Date Time Temp Pulse Resp B/P Pulse Ox O2 Delivery O2 Flow Rate FiO2 08/10/17 13:13 92 22 96 21 08/10/17 07:44 98.6 136/68 08/09/17 20:00 Room Air 08/07/17 02:14 2.0 Intake and Output 08/09/17 08/09/17 08/10/17 15:00 23:00 07:00 Intake Total 110 ml 1960 ml 980 ml Output Total 1050 ml 970 ml Balance 110 ml 910 ml 10 ml Results/Medications Result Diagram: 08/09/17 0546 08/09/17 0546 Results 24 hrs Laboratory Tests Test 08/09/17 17:18 08/09/17 20:38 08/10/17 05:37 08/10/17 08:20 Bedside Glucose 124 78 83 Lab Scanned Report BLOOD TRANSFUSION Test 08/10/17 12:12 08/10/17 13:01 Bedside Glucose 135 Uric Acid 7.0 Medications Current Medications Miscellaneous Information 1 ea NOTE XX ; Start 07/28/17 at 19:30 Glucose (Glutose) 15 gm Q15M PRN PO DECREASED GLUCOSE; Start 07/28/17 at 19:30 Glucose (Glutose) 22.5 gm Q15M PRN PO DECREASED GLUCOSE; Start 07/28/17 at 19: 30 Dextrose (D50w Syringe) 25 ml Q15M PRN IV DECREASED GLUCOSE; Start 07/28/17 at 19:30 Dextrose (D50w Syringe) 50 ml Q15M PRN IV DECREASED GLUCOSE; Start 07/28/17 at 19:30 Glucagon (Glucagen) 1 mg Q15M PRN IM DECREASED GLUCOSE; Start 07/28/17 at 19: 30 Glucose (Glutose) 15 gm Q15M PRN BUCCAL DECREASED GLUCOSE; Start 07/28/17 at 19:30 Carvedilol (Coreg) 6.25 mg BID PO Last administered on 08/10/17 08:22; Admin Dose 6.25 MG; Start 07/29/17 at 21:00 Atorvastatin Calcium (Lipitor) 80 mg HS PO Last administered on 08/09/17 20:37 ; Admin Dose 80 MG; Start 07/29/17 at 21:00 Acetaminophen (Tylenol Tab) 500 mg Q4H PRN PO PAIN AND OR ELEVATED TEMP Last administered on 08/10/17 02:14; Admin Dose 500 MG; Start 07/31/17 at 11:30 Pantoprazole (Protonix Tab) 40 mg BID@06,18 PO Last administered on 08/10/17 05:17; Admin Dose 40 MG; Start 07/31/17 at 18:00 Clarithromycin (Biaxin) 500 mg BID PO Last administered on 08/10/17 08:21; Admin Dose 500 MG; Start 08/01/17 at 21:00; Stop 12/3/17 at 20:59 Amoxicillin (Amoxicillin) 1,000 mg BID PO Last administered on 08/10/17t 08:21 ; Admin Dose 1,000 MG; Start 08/01/17 at 21:00; Stop 08/11/17 at 20:59 Diagnostic Test (Pha) (Accu-Chek) 1 ea 02 XX ; Start 08/05/17 at 02:00 Insulin Glargine (Lantus) 12 unit QHS SC ; Start 08/10/17 at 21:00 Assessment/Plan Chief Complaint/Hosp Course 1. NSTEMI 2. GI bleed/ PUD 3. HTN 4. DM 5. Severe anemia due to above 6. dyslipidemia 7. hx TIA 8. HX of poor compliance 9. liver lesion: f/u with GI rec 10. fluid overload. Recommendations: s/p transfusions. Hgb is stable. he is not on ASA now due to his active GI bleed. RECOMMEND STARTING ECASA 81 mg po daily as soon as ok with GI. so far GI has requested a month off of asa for now and pt to have endoscopy in a few weeks. I will CONT the patient on carvedilol and lipitor for now. Diabetic management/insulin as per internal medicine. liver mass work up as per IM/ GI/ hem onc / surgery . pt does not want work up at this point per daughters will need bell angiogram IF any major surgery is anticipated for risk stratification prior to the surgery. for now will await hem.onc work up. Thank you for his referral will continue to follow along with you. ADELFO CHOE MD [facility] Problems: ADELFO CHOE MD Aug 10, 2017 14:11
[2017-08-10 14:25] VITALS: BP 141/70; RESP 18
--- NOTE | 2017-08-10 18:23 | PN ---
Date/Time of Note Date/Time of Note DATE: 08/10/17 TIME: 18:21 Assessment/Plan Lines/Catheters IV Catheter Type (from Nrsg): Saline Lock Urinary Cath still in place: No Assessment/Plan Assessment/Plan - left ankle pain - ortho consult- Dr Cherry notified - NSTEMI. Dr. Cook is following in cardiology consultation. Due to high risk for a GI rebleeding patient is not advised to hold aspirin for one month per GI. - GI bleed. Prepyloric ulcer status post 3 Hemoclips application during EGD. continue Protonix. Dr. Grove is following in gastroenterology consultation. - H pylori per biopsy, continue H pylori eradication regimen. - Anemia of acute blood loss, s/p blood transfusion. continue to monitor hemoglobin and hematocrit. - HTN, patient is currently normotensive - DM hemoglobin A1c 8.5. Continue Lantus and pre-meal NovoLog. - Dyslipidemia - 2.3 cm lesion at the dome of the liver and leukocytopenia, Dr. Marcelo is following in hematology consultation. Possible liver biopsy if family agrees. Dr. Gallo is asked to see patient in surgical consultation. Further recommendations based on clinical course. Plan of care discussed with Dr. Oglesby. Subjective 24 Hr Interval Summary Free Text/Dictation - denies any ches tpain -- c/o left ankle pain- ortho consult- Dr Cherry notified - afebrile Respiratory: no complaints Cardiovascular: no complaints Gastrointestinal: no complaints Musculoskeletal: bone/joint pain Exam/Review of Systems Vital Signs Vitals Vital Signs Date Time Temp Pulse Resp B/P Pulse Ox O2 Delivery O2 Flow Rate FiO2 08/10/17 14:25 98.8 88 18 141/70 97 08/10/17 13:13 21 08/09/17 20:00 Room Air 08/07/17 02:14 2.0 Intake and Output 08/09/17 08/09/17 08/10/17 15:00 23:00 07:00 Intake Total 110 ml 1960 ml 980 ml Output Total 1050 ml 970 ml Balance 110 ml 910 ml 10 ml Exam Constitutional: alert Respiratory: clear to auscultation, diminished breath sounds Cardiovascular: nl pulses Gastrointestinal: non-tender, soft Musculoskeletal: joint tenderness, range of motion, swelling Results Result Diagram: 08/09/1746 08/09/1746 Results 24 hrs Laboratory Tests Test 08/09/17 20:38 08/10/17 05:37 08/10/17 08:20 08/10/17 12:12 Bedside Glucose 78 83 135 Lab Scanned Report BLOOD TRANSFUSION Test 08/10/17 13:01 08/10/17 17:44 Uric Acid 7.0 Bedside Glucose 85 Medications Medications Current Medications Miscellaneous Information 1 ea NOTE XX ; Start 07/28/17 at 19:30 Glucose (Glutose) 15 gm Q15M PRN PO DECREASED GLUCOSE; Start 07/28/17 at 19:30 Glucose (Glutose) 22.5 gm Q15M PRN PO DECREASED GLUCOSE; Start 07/28/17 at 19: 30 Dextrose (D50w Syringe) 25 ml Q15M PRN IV DECREASED GLUCOSE; Start 07/28/17 at 19:30 Dextrose (D50w Syringe) 50 ml Q15M PRN IV DECREASED GLUCOSE; Start 07/28/17 at 19:30 Glucagon (Glucagen) 1 mg Q15M PRN IM DECREASED GLUCOSE; Start 07/28/17 at 19: 30 Glucose (Glutose) 15 gm Q15M PRN BUCCAL DECREASED GLUCOSE; Start 07/28/17 at 19:30 Carvedilol (Coreg) 6.25 mg BID PO Last administered on 08/10/17 08:22; Admin Dose 6.25 MG; Start 07/29/17 at 21:00 Atorvastatin Calcium (Lipitor) 80 mg HS PO Last administered on 08/09/17 20:37 ; Admin Dose 80 MG; Start 07/29/17 at 21:00 Acetaminophen (Tylenol Tab) 500 mg Q4H PRN PO PAIN AND OR ELEVATED TEMP Last administered on 08/10/17 02:14; Admin Dose 500 MG; Start 07/31/17 at 11:30 Pantoprazole (Protonix Tab) 40 mg BID@06,18 PO Last administered on 08/10/17 17:34; Admin Dose 40 MG; Start 07/31/17 at 18:00 Clarithromycin (Biaxin) 500 mg BID PO Last administered on 08/10/17 08:21; Admin Dose 500 MG; Start 08/01/17 at 21:00; Stop 08/10/17 at 20:59 Amoxicillin (Amoxicillin) 1,000 mg BID PO Last administered on 08/10/17 08:21 ; Admin Dose 1,000 MG; Start 08/01/17 at 21:00; Stop 08/11/17 at 20:59 Diagnostic Test (Pha) (Accu-Chek) 1 02 XX ; Start 08/05/17 at 02:00 Insulin Glargine (Lantus) 12 unit QHS SC ; Start 08/10/17 at 21:00 AMBER FINLEY Aug 10, 2017 18:23
[2017-08-10 20:14] VITALS: BP 144/65; RESP 18
[2017-08-10] MEDS: ATORVASTATIN 80 MG TAB PO SCH (20:36)
[2017-08-10] MEDS: INSULIN GLARGINE [LANtus] 3 ML PEN SC SCH (20:42)
[2017-08-11] MEDS: ALBUTEROL/IPRATROPIUM (NEB) 3 ML AMP HHN SCH ×4 (01:09→19:43)
[2017-08-11] MEDS: ACCU-CHEK XX SCH (01:29)
[2017-08-11 02:22] VITALS: BP 119/59; RESP 18
[2017-08-11] MEDS: PANTOPRAZOLE (EC) 40 MG TAB PO SCH ×2 (05:21→17:16)
[2017-08-11 06:11] LABS: BASOPHILS % 0.8 % (0.0-2.0); EOSINOPHILS # 0.7 10^3/ul (0.0-0.5); EOSINOPHILS % 17.3 % (0.0-7.0); HEMATOCRIT 29.2 % (42.0-52.0); HEMOGLOBIN 9.8 g/dl (14.0-18.0); LYMPHOCYTES # 0.9 10^3/ul (0.8-2.9); LYMPHOCYTES % 22.8 % (15.0-51.0); MEAN CORPUSCULAR HEMOGLOBIN 29.5 pg (29.0-33.0); MEAN CORPUSCULAR HGB CONC 33.6 g/dl (32.0-37.0); MEAN PLATELET VOLUME 10.2 fl (7.4-10.4); MONOCYTE # 0.7 10^3/ul (0.3-0.9); MONOCYTES % 18.3 % (0.0-11.0); NEUTROPHIL # 1.6 10^3/ul (1.6-7.5); PLATELET COUNT 192 10^3/UL (140-415); RED BLOOD COUNT 3.32 10^6/ul (4.70-6.10); RED CELL DISTRIBUTION WIDTH 15.2 % (11.5-14.5); WHITE BLOOD COUNT 3.9 10^3/ul (4.8-10.8)
[2017-08-11 06:54] LABS: CALCIUM 8.1 mg/dl (8.4-10.2); CREATININE 1.12 mg/dl (0.61-1.24); POTASSIUM 4.3 mmol/L (3.5-5.1)
--- NOTE | 2017-08-11 07:03 | PN ---
DATE: 08/09/2017 The patient at this time has no significant abdominal pain. No history of vomiting blood or passing blood from the rectum. Patient had a bleeding prepyloric ul cer which was hemoclipped, and the hemoglobin remains stable, around 9.9 at this time. The CAT scan of the abdomen shows evidence of a lesion below the right dome of the diaphragm, above the right lobe of the liver and repeat CAT scan of the abdomen with IV contrast has been requested. PHYSICAL EXAMINATION: Patient is stable. LABORATORY DATA: Hemoglobin 9.1. CLINICAL IMPRESSION: 1. Stable prepyloric ulcer. 2. Lesion in the right lobe of the liver just near the dome of the diaphragm. 3. CT of the abdomen with IV contrast is pending. Dictated By: JULIO KING MD NC/NTS Conf#: [id number] DID#: [id number] CC: ASHOK KAN MD;*EndCC*
[2017-08-11] MEDS: INSULIN ASPART [NOVOLOG] 3 ML PEN SC SCH ×7 (08:15→20:58)
[2017-08-11] MEDS: AMOXICILLIN 500 MG CAP PO SCH (08:15)
[2017-08-11 08:16] VITALS: BP 122/61; RESP 18
--- NOTE | 2017-08-11 12:24 | PN ---
Date/Time of Note Date/Time of Note DATE: 08/11/17 TIME: 12:20 Assessment/Plan VTE Prophylaxis VTE Prophylaxis Intervention: SCD's Lines/Catheters IV C[facility]ter Type (from [facility]): Saline Lock Urinary Cath still in place: No Assessment/Plan Chief Complaint/Hosp Course Patient's complains of significant left ankle pain and swelling. Pending orthopedic surgery consult from Dr. Cherry. Assessment/Plan - NSTEMI. Dr. Cook is following in cardiology consultation. Due to high risk for a GI rebleeding patient is not advised to hold aspirin for one month per GI. - GI bleed. Prepyloric ulcer status post 3 Hemoclips application during EGD. continue Protonix. Dr. Grove is following in gastroenterology consultation. - H pylori per biopsy, continue H pylori eradication regimen. - Anemia of acute blood loss, s/p blood transfusion. continue to monitor hemoglobin and hematocrit. - HTN, patient is currently normotensive - DM hemoglobin A1c 8.5. Continue Lantus and pre-meal NovoLog. - Dyslipidemia - 2.3 cm lesion at the dome of the liver and leukocytopenia, Dr. Marcelo is following in hematology consultation. Possible liver biopsy if family agrees. Dr. Gallo is is evaluated patient in general surgery consultation. Triple CT of the abdomen per liver protocol is recommended in 3 months. Further recommendations based on clinical course. Plan of care discussed with Dr. Oglesby. Problems: Exam/Review of Systems Vital Signs Vitals Vital Signs Date Time Temp Pulse Resp B/P Pulse Ox O2 Delivery O2 Flow Rate FiO2 08/11/17 08:23 82 20 96 21 08/11/17 08:16 98.6 122/61 08/09/17 20:00 Room Air Intake and Output 08/10/17 08/10/17 08/11/17 15:00 23:00 07:00 Intake Total 110 ml 1340 ml 460 ml Output Total 800 ml 575 ml Balance 110 ml 540 ml -115 ml Exam Constitutional: alert, oriented Respiratory: normal air movement Cardiovascular: nl pulses Gastrointestinal: non-tender, soft Musculoskeletal: nl extremities to inspection Extremities: normal pulses, left ankle swelling and erythema Results Result Diagram: 08/11/17 0514 08/11/17 0514 Results 24 hrs Laboratory Tests Test 08/10/17 13:01 08/10/17 17:44 08/10/17 20:35 08/11/17 05:14 Uric Acid 7.0 Bedside Glucose 85 150 White Blood Count 3.9 L Red Blood Count 3.32 L Hemoglobin 9.8 L Hematocrit 29.2 L Mean Corpuscular Volume 88.0 Mean Corpuscular Hemoglobin 29.5 Mean Corpuscular Hemoglobin Concent 33.6 Red Cell Distribution Width 15.2 H Platelet Count 192 Mean Platelet Volume 10.2 Neutrophils % 40.0 Lymphocytes % 22.8 Monocytes % 18.3 H Eosinophils % 17.3 H Basophils % 0.8 Nucleated Red Blood Cells % 0.0 Neutrophils # 1.6 Lymphocytes # 0.9 Monocytes # 0.7 Eosinophils # 0.7 H Basophils # 0.0 Nucleated Red Blood Cells # 0.0 Sodium Level 132 L Potassium Level 4.3 Chloride Level 99 Carbon Dioxide Level 27 Anion Gap 10 Blood Urea Nitrogen 11 Creatinine 1.12 Glucose Level 90 Calcium Level 8.1 L Test 08/11/17 08:12 08/11/17 12:07 Bedside Glucose 93 181 Medications Medications Current Medications Miscellaneous Information 1 ea NOTE XX ; Start 07/28/17 at 19:30 Glucose (Glutose) 15 gm Q15M PRN PO DECREASED GLUCOSE; Start 07/28/17 at 19:30 Glucose (Glutose) 22.5 gm Q15M PRN PO DECREASED GLUCOSE; Start 07/28/17 at 19: 30 Dextrose (D50w Syringe) 25 ml Q15M PRN IV DECREASED GLUCOSE; Start 07/28/17 at 19:30 Dextrose (D50w Syringe) 50 ml Q15M PRN IV DECREASED GLUCOSE; Start 07/28/17 at 19:30 Glucagon (Glucagen) 1 mg Q15M PRN IM DECREASED GLUCOSE; Start 07/28/17 at 19: 30 Glucose (Glutose) 15 gm Q15M PRN BUCCAL DECREASED GLUCOSE; Start 07/28/17 at 19:30 Carvedilol (Coreg) 6.25 mg BID PO Last administered on 08/11/17 08:15; Admin Dose 6.25 MG; Start 07/29/17 at 21:00 Atorvastatin Calcium (Lipitor) 80 mg HS PO Last administered on 08/10/17 20:36 ; Admin Dose 80 MG; Start 07/29/17 at 21:00 Acetaminophen (Tylenol Tab) 500 mg Q4H PRN PO PAIN AND OR ELEVATED TEMP Last administered on 08/10/17 02:14; Admin Dose 500 MG; Start 07/31/17 at 11:30 Pantoprazole (Protonix Tab) 40 mg BID@,18 PO Last administered on 08/11/17 05:21; Admin Dose 40 MG; Start 07/31/17 at 18:00 Amoxicillin (Amoxicillin) 1,000 mg BID PO Last administered on 08/11/17 08:15 ; Admin Dose 1,000 MG; Start 08/01/17 at 21:00; Stop 08/11/17 at 20:59 Diagnostic Test (Pha) (Accu-Chek) 1 ea 02 XX ; Start 08/05/17 at 02:00 Insulin Glargine (Lantus) 12 unit QHS SC Last administered on 08/10/17 20:42; Admin Dose 12 UNIT; Start 08/10/17 at 21:00 AKIRA ADAMS Aug 11, 2017 12:23
[2017-08-11] MEDS: ACETAMINOPHEN 500 MG TAB PO PRN (14:27)
[2017-08-11 15:02] VITALS: BP 129/60; RESP 18
--- NOTE | 2017-08-11 16:21 | CONS ---
Date/Time of Note Date/Time of Note DATE: 08/11/17 TIME: 16:18 Assessment/Plan Assessment/Plan Chief Complaint/Hosp Course #Leukopenia -I have reviewed the peripheral smear and there is no evidence of blasts or dysplastic cells. -At this time patient is not acutely infected and I do not believe pt would benefit from growth factor support. 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 A biopsy could also confirm a diagnosis. -will also consult hepatobiliary surgery to see if patient would be a surgical candidate #Anemia -2/2 GI bleed. Hg stable -s/p blood transfusion and IV iron -anemia panel is consistent with iron deficiency -anemia workup otherwise negative # NSTEMI. - Dr. Cook is following in cardiology consultation. - Due to high risk for a GI rebleeding patient,ASA is on hold for one month #HTN -BP currently ok -continue management per Primary team #DM - is not advised to hold aspirin for one month per GI. - hemoglobin A1c 8.5. Continue Lantus and pre-meal NovoLog. #Hyperlipidemia -continue statin per Primary team Problems: Consultation Date/Type/Reason Admit Date/Time Jul 28, 2017 at 17:35 Initial Consult Date 08/07/17 Type of Consultation: Hematology Reason for Consultation liver mass Referring Provider: ASHOK KAN MD 24 HR Interval Summary Free Text/Dictation no acute overnight event Exam/Review of Systems Vital Signs Vitals Vital Signs Date Time Temp Pulse Resp B/P Pulse Ox O2 Delivery O2 Flow Rate FiO2 08/11/17 15:02 98.8 86 18 129/60 94 08/11/17 13:15 21 08/09/17 20:00 Room Air Intake and Output 08/10/17 08/10/17 08/11/17 15:00 23:00 07:00 Intake Total 110 ml 1340 ml 460 ml Output Total 800 ml 575 ml Balance 110 ml 540 ml -115 ml Exam Constitutional: alert, oriented Psych: no complaints Head: normocephalic Eyes: nl conjunctiva ENMT: nl external ears & nose Neck: non-tender, supple Respiratory: clear to auscultation Cardiovascular: regular rate and rhythm Gastrointestinal: soft Musculoskeletal: nl extremities to inspection Results Result Diagram: 08/11/17 0514 08/11/17 0514 Results 24 hrs Laboratory Tests Test 08/10/17 17:44 08/10/17 20:35 08/11/17 05:14 08/11/17 08:12 Bedside Glucose 85 150 93 White Blood Count 3.9 L Red Blood Count 3.32 L Hemoglobin 9.8 L Hematocrit 29.2 L Mean Corpuscular Volume 88.0 Mean Corpuscular Hemoglobin 29.5 Mean Corpuscular Hemoglobin Concent 33.6 Red Cell Distribution Width 15.2 H Platelet Count 192 Mean Platelet Volume 10.2 Neutrophils % 40.0 Lymphocytes % 22.8 Monocytes % 18.3 H Eosinophils % 17.3 H Basophils % 0.8 Nucleated Red Blood Cells % 0.0 Neutrophils # 1.6 Lymphocytes # 0.9 Monocytes # 0.7 Eosinophils # 0.7 H Basophils # 0.0 Nucleated Red Blood Cells # 0.0 Sodium Level 132 L Potassium Level 4.3 Chloride Level 99 Carbon Dioxide Level 27 Anion Gap 10 Blood Urea Nitrogen 11 Creatinine 1.12 Glucose Level 90 Calcium Level 8.1 L Test 08/11/17 12:07 Bedside Glucose 181 Medications Medications Current Medications Miscellaneous Information 1 ea NOTE XX ; Start 07/28/17 at 19:30 Glucose (Glutose) 15 gm Q15M PRN PO DECREASED GLUCOSE; Start 07/28/17 at 19:30 Glucose (Glutose) 22.5 gm Q15M PRN PO DECREASED GLUCOSE; Start 07/28/17 at 19: 30 Dextrose (D50w Syringe) 25 ml Q15M PRN IV DECREASED GLUCOSE; Start 07/28/17 at 19:30 Dextrose (D50w Syringe) 50 ml Q15M PRN IV DECREASED GLUCOSE; Start 07/28/17 at 19:30 Glucagon (Glucagen) 1 mg Q15M PRN IM DECREASED GLUCOSE; Start 07/28/17 at 19: 30 Glucose (Glutose) 15 gm Q15M PRN BUCCAL DECREASED GLUCOSE; Start 07/28/17 at 19:30 Carvedilol (Coreg) 6.25 mg BID PO Last administered on 08/11/17t 08:15; Admin Dose 6.25 MG; Start 07/29/17 at 21:00 Atorvastatin Calcium (Lipitor) 80 mg HS PO Last administered on 08/10/17 20:36 ; Admin Dose 80 MG; Start 07/29/17 at 21:00 Acetaminophen (Tylenol Tab) 500 mg Q4H PRN PO PAIN AND OR ELEVATED TEMP Last administered on 08/11/17 14:27; Admin Dose 500 MG; Start 07/31/17 at 11:30 Pantoprazole (Protonix Tab) 40 mg BID@06,18 PO Last administered on 08/11/17 05:21; Admin Dose 40 MG; Start 07/31/17 at 18:00 Amoxicillin (Amoxicillin) 1,000 mg BID PO Last administered on 08/11/17 08:15 ; Admin Dose 1,000 MG; Start 08/01/17 at 21:00; Stop 08/11/17 at 20:59 Diagnostic Test (Pha) (Accu-Chek) 1 ea 02 XX ; Start 08/05/17 at 02:00 Insulin Glargine (Lantus) 12 unit QHS SC Last administered on 08/10/17 20:42; Admin Dose 12 UNIT; Start 08/10/17 at 21:00 STEPHENIE VIDES M.D. Aug 11, 2017 16:21
[2017-08-11] MEDS ORDERED: VANCOMYCIN IV PER PHARMACY XX SCH (17:00)
[2017-08-11] MEDS: LEVOFLOXACIN 500MG/D5W (PMX) 100 ML IVPB SCH (17:17)
[2017-08-11] MEDS ORDERED: VANCOMYCIN 1.75 GM in NS 500 ML IVPB SCH (18:00)
[2017-08-11 19:58] VITALS: BP 154/64; RESP 18
--- NOTE | 2017-08-11 20:02 | CONS ---
Date/Time of Note Date/Time of Note DATE: 08/11/17 TIME: 20:01 Consult Date/Type/Reason Admit Date/Time Jul 28, 2017 at 17:35 Initial Consult Date 07/28/17 Type of Consultation: card Ordering Provider: ASHOK KAN MD Subjective cardiology follow up note: S: Discussed with the staff and daughters Patient denies any active chest pain or pressure to me. Denies any active bleeding to me. Denies any palpitation to me. s/p EGD on 07/30/17 showing PUD. he denies sob now he c/o left foot pain O: General: obese no acute distress HEENT: NC/AT. pupils are equal. round. NECK: NO JVD. no stridor. CV: RRR. systolic murmur; no gallop or rubs. PULM: no wheezing GI: SOFT, NT, ND, no rebound or guarding Extremity: trace B/L LE edema. no clubbing. neuro: awake and alert, OX3. Psych: calm and pleasant rectal: deferred DERM: Multiple diffuse ecchymosis. EG reviewed; NSR. Nonspecific ST-T wave abnormalities echo reviewed; 1. Normal left ventricular cavity size. Mild concentric left ventricular hypertrophy. Ejection fraction is visually estimated at 50 %. Tissue Doppler/Mitral Doppler indices are consistent with impaired relaxation (Stage I diastolic dysfunction). Multiple segmental wall motion abnormalities. These segments of the LV are hypokinetic mid anterior segment, apical anterior segment. and apical septum. 2. Normal appearance of the mitral valve. Mild mitral annular calcification. Trace mitral regurgitation. 3. Aortic valve not well visualized. No hemodynamically significant aortic stenosis by doppler. Aortic cusps appear moderately calcified. Mild aortic valve regurgitation. 4. Normal appearance of the tricuspid valve. Estimated peak PA systolic pressure 33 mmHg. There is trace tricuspid regurgitation. Objective Vital Signs Date Time Temp Pulse Resp B/P Pulse Ox O2 Delivery O2 Flow Rate FiO2 08/11/17 19:58 97.9 80 18 154/64 93 08/11/17 19:43 21 08/09/17 20:00 Room Air Intake and Output 08/10/17 08/10/17 08/11/17 15:00 23:00 07:00 Intake Total 110 ml 1340 ml 460 ml Output Total 800 ml 575 ml Balance 110 ml 540 ml -115 ml Results/Medications Result Diagram: 08/11/17 0514 08/11/17 0514 Results 24 hrs Laboratory Tests Test 08/10/17 20:35 08/11/17 05:14 08/11/17 08:12 08/11/17 12:07 Bedside Glucose 150 93 181 White Blood Count 3.9 L Red Blood Count 3.32 L Hemoglobin 9.8 L Hematocrit 29.2 L Mean Corpuscular Volume 88.0 Mean Corpuscular Hemoglobin 29.5 Mean Corpuscular Hemoglobin Concent 33.6 Red Cell Distribution Width 15.2 H Platelet Count 192 Mean Platelet Volume 10.2 Neutrophils % 40.0 Lymphocytes % 22.8 Monocytes % 18.3 H Eosinophils % 17.3 H Basophils % 0.8 Nucleated Red Blood Cells % 0.0 Neutrophils # 1.6 Lymphocytes # 0.9 Monocytes # 0.7 Eosinophils # 0.7 H Basophils # 0.0 Nucleated Red Blood Cells # 0.0 Sodium Level 132 L Potassium Level 4.3 Chloride Level 99 Carbon Dioxide Level 27 Anion Gap 10 Blood Urea Nitrogen 11 Creatinine 1.12 Glucose Level 90 Calcium Level 8.1 L Test 08/11/17 17:21 Bedside Glucose 142 Medications Current Medications Miscellaneous Information 1 ea NOTE XX ; Start 07/28/17 at 19:30 Glucose (Glutose) 15 gm Q15M PRN PO DECREASED GLUCOSE; Start 07/28/17 at 19:30 Glucose (Glutose) 22.5 gm Q15M PRN PO DECREASED GLUCOSE; Start 07/28/17 at 19: 30 Dextrose (D50w Syringe) 25 ml Q15M PRN IV DECREASED GLUCOSE; Start 07/28/17 at 19:30 Dextrose (D50w Syringe) 50 ml Q15M PRN IV DECREASED GLUCOSE; Start 07/28/17 at 19:30 Glucagon (Glucagen) 1 mg Q15M PRN IM DECREASED GLUCOSE; Start 07/28/17 at 19: 30 Glucose (Glutose) 15 gm Q15M PRN BUCCAL DECREASED GLUCOSE; Start 07/28/17 at 19:30 Carvedilol (Coreg) 6.25 mg BID PO Last administered on 08/11/17 08:15; Admin Dose 6.25 MG; Start 07/29/17 at 21:00 Atorvastatin Calcium (Lipitor) 80 mg HS PO Last administered on 08/10/17 20:36 ; Admin Dose 80 MG; Start 07/29/17 at 21:00 Acetaminophen (Tylenol Tab) 500 mg Q4H PRN PO PAIN AND OR ELEVATED TEMP Last administered on 08/11/17 14:27; Admin Dose 500 MG; Start 07/31/17 at 11:30 Pantoprazole (Protonix Tab) 40 mg BID@06,18 PO Last administered on 08/11/17 17:16; Admin Dose 40 MG; Start 07/31/17 at 18:00 Amoxicillin (Amoxicillin) 1,000 mg BID PO Last administered on 08/11/17 08:15 ; Admin Dose 1,000 MG; Start 08/01/17 at 21:00; Stop 08/11/17 at 20:59 Diagnostic Test (Pha) (Accu-Chek) 1 ea 02 XX ; Start 08/05/17 at 02:00 Insulin Glargine 12 unit 12 unit QHS SC Last administered on 08/10/17 20:42; Admin Dose 12 UNIT; Start 08/10/17 at 21:00 Levofloxacin/ Dextrose (Levaquin 500mg/ D5W 100 ml (Pmx)) 100 ml @ 100 mls/hr Q24H IVPB Last administered on 08/11/17 17:17; Admin Dose 100 MLS/HR; Start 08/11/17 at 17:00 Oxycodone/ Acetaminophen 1 tab 1 tab TID PO ; Start 08/11/17 at 21:00 Vancomycin HCl 1.75 gm/Sodium Chloride 500 ml @ 125 mls/hr NOW IVPB Last administered on 08/11/17 18:48; Admin Dose 125 MLS/HR; Start 08/11/17 at 18:00 ; Stop 08/11/17 at 22:00 Vancomycin HCl/ Sodium Chloride (Vancocin/NS) 250 ml @ 83.333 mls/ hr Q24H IVPB ; Start 08/12/17 at 18:00 Assessment/Plan Chief Complaint/Hosp Course 1. NSTEMI 2. GI bleed/ PUD 3. HTN 4. DM 5. Severe anemia due to above 6. dyslipidemia 7. hx TIA 8. HX of poor compliance 9. liver lesion: f/u with GI rec 10. fluid overload. Recommendations: s/p transfusions. Hgb is stable. he is not on ASA now due to his active GI bleed. RECOMMEND STARTING ECASA 81 mg po daily as soon as ok with GI. so far GI has requested a month off of asa for now and pt to have endoscopy in a few weeks. I will CONT the patient on carvedilol and lipitor for now. Diabetic management/insulin as per internal medicine. liver mass work up as per IM/ GI/ hem onc / surgery . pt does not want work up at this point per daughters will need bell angiogram IF any major surgery is anticipated for risk stratification prior to the surgery. for now will await hem.onc work up. Thank you for his referral will continue to follow along with you. ADELFO CHOE MD [facility] Problems: ADELFO CHOE MD Aug 11, 2017 20:02
[2017-08-11] MEDS: OXYCODONE/ACETAMINOPHEN (5/325) TAB PO SCH (20:48)
[2017-08-11] MEDS: ATORVASTATIN 80 MG TAB PO SCH (20:48)
[2017-08-11] MEDS: INSULIN GLARGINE [LANtus] 3 ML PEN SC SCH (20:53)
[2017-08-12 01:34] VITALS: BP 106/59; RESP 17
[2017-08-12] MEDS: ACCU-CHEK XX SCH (01:40)
[2017-08-12] MEDS: ALBUTEROL/IPRATROPIUM (NEB) 3 ML AMP HHN SCH ×4 (02:19→19:34)
[2017-08-12] MEDS: PANTOPRAZOLE (EC) 40 MG TAB PO SCH ×2 (05:26→17:53)
[2017-08-12 06:25] LABS: CALCIUM 8.4 mg/dl (8.4-10.2); CREATININE 1.13 mg/dl (0.61-1.24); POTASSIUM 4.3 mmol/L (3.5-5.1)
[2017-08-12 07:06] LABS: BASOPHILS % 0.7 % (0.0-2.0); EOSINOPHILS # 0.8 10^3/ul (0.0-0.5); HEMATOCRIT 30.5 % (42.0-52.0); HEMOGLOBIN 10.3 g/dl (14.0-18.0); LYMPHOCYTES % 23.9 % (15.0-51.0); MEAN CORPUSCULAR HEMOGLOBIN 29.9 pg (29.0-33.0); MEAN CORPUSCULAR HGB CONC 33.8 g/dl (32.0-37.0); MEAN CORPUSCULAR VOLUME 88.7 fl (82.0-101.0); MEAN PLATELET VOLUME 9.8 fl (7.4-10.4); MONOCYTE # 0.9 10^3/ul (0.3-0.9); MONOCYTES % 21.5 % (0.0-11.0); NEUTROPHIL # 1.4 10^3/ul (1.6-7.5); NEUTROPHILS % 32.7 % (39.0-77.0); PLATELET COUNT 218 10^3/UL (140-415); RED BLOOD COUNT 3.44 10^6/ul (4.70-6.10); WHITE BLOOD COUNT 4.2 10^3/ul (4.8-10.8)
[2017-08-12 07:43] VITALS: BP 123/57; RESP 18
[2017-08-12] MEDS: INSULIN ASPART [NOVOLOG] 3 ML PEN SC SCH ×7 (08:14→20:51)
[2017-08-12] MEDS: OXYCODONE/ACETAMINOPHEN (5/325) TAB PO SCH ×3 (08:16→20:49)
--- NOTE | 2017-08-12 09:05 | CONS ---
Date/Time of Note Date/Time of Note DATE: 08/12/17 TIME: 09:03 Assessment/Plan Assessment/Plan Chief Complaint/Hosp Course #Leukopenia -I have reviewed the peripheral smear and there is no evidence of blasts or dysplastic cells. -At this time patient is not acutely infected and I do not believe pt would benefit from growth factor support. -WBC count is now within normal range -continue to monitor CBC as an out patient #Liver Lesion -per CT with liver protocol this is concerning for HCC -AFP is 1.6 which is not diagnostic of HCC -hepatobiliary surgery has reviewed case and recommends a repeat CT in 3 mo. recs appreciated #Anemia -2/2 GI bleed. Hg stable -s/p blood transfusion and IV iron -anemia panel is consistent with iron deficiency -anemia workup otherwise negative # NSTEMI. - Dr. Cook is following in cardiology consultation. - Due to high risk for a GI rebleeding patient,ASA is on hold for one month #HTN -BP currently ok -continue management per Primary team #DM - is not advised to hold aspirin for one month per GI. - hemoglobin A1c 8.5. Continue Lantus and pre-meal NovoLog. #Hyperlipidemia -continue statin per Primary team Problems: Consultation Date/Type/Reason Admit Date/Time Jul 28, 2017 at 17:35 Initial Consult Date 08/07/17 Type of Consultation: hematology Reason for Consultation liver mass and anemia Referring Provider: ASHOK KAN MD 24 HR Interval Summary Free Text/Dictation pt c/o ankle swelling Exam/Review of Systems Vital Signs Vitals Vital Signs Date Time Temp Pulse Resp B/P Pulse Ox O2 Delivery O2 Flow Rate FiO2 08/12/17 07:43 98.3 79 18 123/57 94 08/12/17 02:19 21 08/09/17 20:00 Room Air Intake and Output 08/11/17 08/11/17 08/12/17 15:00 23:00 07:00 Intake Total 1140 ml 1400 ml Output Total 850 ml 700 ml Balance 290 ml 700 ml Exam Constitutional: alert, oriented Psych: no complaints Head: normocephalic Eyes: nl conjunctiva ENMT: nl external ears & nose Neck: non-tender, supple Respiratory: clear to auscultation Cardiovascular: nl pulses, regular rate and rhythm Gastrointestinal: soft Musculoskeletal: joint tenderness (ankle), nl extremities to inspection Results Result Diagram: 08/12/17 0503 08/12/17 0503 Results 24 hrs Laboratory Tests Test 08/11/17 12:07 08/11/17 17:21 08/11/17 20:51 08/12/17 01:38 Bedside Glucose 181 142 191 126 Test 08/12/17 05:03 08/12/17 08:09 White Blood Count 4.2 L Red Blood Count 3.44 L Hemoglobin 10.3 L Hematocrit 30.5 L Mean Corpuscular Volume 88.7 Mean Corpuscular Hemoglobin 29.9 Mean Corpuscular Hemoglobin Concent 33.8 Red Cell Distribution Width 15.0 H Platelet Count 218 Mean Platelet Volume 9.8 Neutrophils % 32.7 L Lymphocytes % 23.9 Monocytes % 21.5 H Eosinophils % 20.0 H Basophils % 0.7 Nucleated Red Blood Cells % 0.0 Neutrophils # 1.4 L Lymphocytes # 1.0 Monocytes # 0.9 Eosinophils # 0.8 H Basophils # 0.0 Nucleated Red Blood Cells # 0.0 Sodium Level 133 L Potassium Level 4.3 Chloride Level 100 Carbon Dioxide Level 30 Anion Gap 7 L Blood Urea Nitrogen 13 Creatinine 1.13 Glucose Level 108 Calcium Level 8.4 Bedside Glucose 109 Medications Medications Current Medications Miscellaneous Information 1 ea NOTE XX ; Start 07/28/17 at 19:30 Glucose (Glutose) 15 gm Q15M PRN PO DECREASED GLUCOSE; Start 07/28/17 at 19:30 Glucose (Glutose) 22.5 gm Q15M PRN PO DECREASED GLUCOSE; Start 07/28/17 at 19: 30 Dextrose (D50w Syringe) 25 ml Q15M PRN IV DECREASED GLUCOSE; Start 07/28/17 at 19:30 Dextrose (D50w Syringe) 50 ml Q15M PRN IV DECREASED GLUCOSE; Start 07/28/17 at 19:30 Glucagon (Glucagen) 1 mg Q15M PRN IM DECREASED GLUCOSE; Start 07/28/17 at 19: 30 Glucose (Glutose) 15 gm Q15M PRN BUCCAL DECREASED GLUCOSE; Start 07/28/17 at 19:30 Carvedilol (Coreg) 6.25 mg BID PO Last administered on 08/12/17t 08:17; Admin Dose 6.25 MG; Start 07/29/17 at 21:00 Atorvastatin Calcium (Lipitor) 80 mg HS PO Last administered on 08/11/17 20:48 ; Admin Dose 80 MG; Start 07/29/17 at 21:00 Acetaminophen (Tylenol Tab) 500 mg Q4H PRN PO PAIN AND OR ELEVATED TEMP Last administered on 08/11/17 14:27; Admin Dose 500 MG; Start 07/31/17 at 11:30 Pantoprazole (Protonix Tab) 40 mg BID@06,18 PO Last administered on 08/12/17 05:26; Admin Dose 40 MG; Start 07/31/17 at 18:00 Diagnostic Test (Pha) (Accu-Chek) 1 ea 02 XX Last administered on 08/12/17 01: 40; Admin Dose 1 EA; Start 08/05/17 at 02:00 Insulin Glargine 12 unit 12 unit QHS SC Last administered on 08/11/17 20:53; Admin Dose 12 UNIT; Start 08/10/17 at 21:00 Levofloxacin/ Dextrose (Levaquin 500mg/ D5W 100 ml (Pmx)) 100 ml @ 100 mls/hr Q24H IVPB Last administered on 08/11/17 17:17; Admin Dose 100 MLS/HR; Start 08/11/17 at 17:00 Oxycodone/ Acetaminophen 1 tab 1 tab TID PO Last administered on 08/12/17 08: 16; Admin Dose 1 TAB; Start 08/11/17 at 21:00 Vancomycin HCl/ Sodium Chloride (Vancocin/NS) 250 ml @ 83.333 mls/ hr Q24H IVPB ; Start 08/12/17 at 18:00 STEPHENIE VIDES M.D. Aug 12, 2017 09:05
--- NOTE | 2017-08-12 13:11 | PN ---
Date/Time of Note Date/Time of Note DATE: 08/12/17 TIME: 13:05 Assessment/Plan VTE Prophylaxis VTE Prophylaxis Intervention: SCD's Lines/Catheters IV [facility]ter Type [facility]from [facility] Saline Lock Urinary Cath still in place: No Assessment/Plan Chief Complaint/Hosp Course Patient's complains of significant left ankle pain and swelling. Pending orthopedic surgery consult from Dr. Cherry. I called Dr. Cherry's office, aware of the consult Assessment/Plan - Left ankle swelling swelling erythema and tenderness, rule out septic arthritis, pending orthopedic surgery consult Dr. Cherry, continue broad-spectrum antibiotics. - NSTEMI. Dr. Cook is following in cardiology consultation. Due to high risk for a GI rebleeding patient is not advised to hold aspirin for one month per GI. - GI bleed. Prepyloric ulcer status post 3 Hemoclips application during EGD. continue Protonix. Dr. Grove is following in gastroenterology consultation. - H pylori per biopsy, continue H pylori eradication regimen. - Anemia of acute blood loss and iron deficiency anemia. s/p blood transfusion. continue to monitor hemoglobin and hematocrit. Continue iron supplements. - HTN, patient is currently normotensive - DM hemoglobin A1c 8.5. Continue Lantus and pre-meal NovoLog. - Dyslipidemia - 2.3 cm lesion at the dome of the liver and leukocytopenia, Dr. Marcelo is following in hematology consultation. It was decided not to pursue with liver biopsy at this time due to high risk for bleeding and family decision. Dr. Gallo is is evaluated patient in general surgery consultation. Triple CT of the abdomen per liver protocol is recommended in 3 months. Further recommendations based on clinical course. Plan of care discussed with Dr. Oglesby. Problems: Exam/Review of Systems Vital Signs Vitals Vital Signs Date Time Temp Pulse Resp B/P Pulse Ox O2 Delivery O2 Flow Rate FiO2 08/12/17 07:43 98.3 79 18 123/57 94 08/12/17 02:19 21 08/09/17 20:00 Room Air Intake and Output 08/11/17 08/11/17 08/12/17 14:59 22:59 06:59 Intake Total 1140 ml 1400 ml Output Total 850 ml 700 ml Balance 290 ml 700 ml Exam Constitutional: alert, oriented Respiratory: normal air movement Cardiovascular: nl pulses Gastrointestinal: non-tender, soft Musculoskeletal: nl extremities to inspection Extremities: normal pulses, left ankle swelling and erythema Results Result Diagram: 08/12/17 0503 08/12/17 0503 Results 24 hrs Laboratory Tests Test 08/11/17 17:21 08/11/17 20:51 08/12/17 01:38 08/12/17 05:03 Bedside Glucose 142 191 126 White Blood Count 4.2 L Red Blood Count 3.44 L Hemoglobin 10.3 L Hematocrit 30.5 L Mean Corpuscular Volume 88.7 Mean Corpuscular Hemoglobin 29.9 Mean Corpuscular Hemoglobin Concent 33.8 Red Cell Distribution Width 15.0 H Platelet Count 218 Mean Platelet Volume 9.8 Neutrophils % 32.7 L Lymphocytes % 23.9 Monocytes % 21.5 H Eosinophils % 20.0 H Basophils % 0.7 Nucleated Red Blood Cells % 0.0 Neutrophils # 1.4 L Lymphocytes # 1.0 Monocytes # 0.9 Eosinophils # 0.8 H Basophils # 0.0 Nucleated Red Blood Cells # 0.0 Erythrocyte Sedimentation Rate 80 H Sodium Level 133 L Potassium Level 4.3 Chloride Level 100 Carbon Dioxide Level 30 Anion Gap 7 L Blood Urea Nitrogen 13 Creatinine 1.13 Glucose Level 108 Calcium Level 8.4 Test 08/12/17 08:09 08/12/17 12:17 Bedside Glucose 109 143 Medications Medications Current Medications Miscellaneous Information 1 ea NOTE XX ; Start 07/28/17 at 19:30 Glucose (Glutose) 15 gm Q15M PRN PO DECREASED GLUCOSE; Start 07/28/17 at 19:30 Glucose (Glutose) 22.5 gm Q15M PRN PO DECREASED GLUCOSE; Start 07/28/17 at 19: 30 Dextrose (D50w Syringe) 25 ml Q15M PRN IV DECREASED GLUCOSE; Start 07/28/17 at 19:30 Dextrose (D50w Syringe) 50 ml Q15M PRN IV DECREASED GLUCOSE; Start 07/28/17 at 19:30 Glucagon (Glucagen) 1 mg Q15M PRN IM DECREASED GLUCOSE; Start 07/28/17 at 19: 30 Glucose (Glutose) 15 gm Q15M PRN BUCCAL DECREASED GLUCOSE; Start 07/28/17 at 19:30 Carvedilol (Coreg) 6.25 mg BID PO Last administered on 08/12/17t 08:17; Admin Dose 6.25 MG; Start 07/29/17 at 21:00 Atorvastatin Calcium (Lipitor) 80 mg HS PO Last administered on 08/11/17 20:48 ; Admin Dose 80 MG; Start 07/29/17 at 21:00 Acetaminophen (Tylenol Tab) 500 mg Q4H PRN PO PAIN AND OR ELEVATED TEMP Last administered on 08/11/17 14:27; Admin Dose 500 MG; Start 07/31/17 at 11:30 Pantoprazole (Protonix Tab) 40 mg BID@06,18 PO Last administered on 08/12/17 05:26; Admin Dose 40 MG; Start 07/31/17 at 18:00 Diagnostic Test (Pha) (Accu-Chek) 1 ea 02 XX Last administered on 08/12/17 01: 40; Admin Dose 1 EA; Start 08/05/17 at 02:00 Insulin Glargine 12 unit 12 unit QHS SC Last administered on 08/11/17 20:53; Admin Dose 12 UNIT; Start 08/10/17 at 21:00 Levofloxacin/ Dextrose (Levaquin 500mg/ D5W 100 ml (Pmx)) 100 ml @ 100 mls/hr Q24H IVPB Last administered on 08/11/17 17:17; Admin Dose 100 MLS/HR; Start 08/11/17 at 17:00 Oxycodone/ Acetaminophen 1 tab 1 tab TID PO Last administered on 08/12/17 08: 16; Admin Dose 1 TAB; Start 08/11/17 at 21:00 Vancomycin HCl/ Sodium Chloride (Vancocin/NS) 250 ml @ 83.333 mls/ hr Q24H IVPB ; Start 08/12/17 at 18:00 AKIRA ADAMS Aug 12, 2017 13:11
--- NOTE | 2017-08-12 14:00 | CONS ---
Date/Time of Note Date/Time of Note DATE: 08/12/17 TIME: 14:00 Consult Date/Type/Reason Admit Date/Time Jul 28, 2017 at 17:35 Initial Consult Date 07/28/17 Type of Consultation: cardiology Ordering Provider: ASHOK KAN MD Subjective cardiology follow up note: S: Discussed with the staff Patient denies any active chest pain or pressure to me. Denies any active bleeding to me. Denies any palpitation to me. s/p EGD on 07/30/17 showing PUD. he denies sob now O: General: obese no acute distress HEENT: NC/AT. pupils are equal. round. NECK: NO JVD. no stridor. CV: RRR. systolic murmur; no gallop or rubs. PULM: no wheezing GI: SOFT, NT, ND, no rebound or guarding Extremity: trace B/L LE edema. no clubbing. neuro: awake and alert, OX3. Psych: calm and pleasant rectal: deferred DERM: Multiple diffuse ecchymosis. EG reviewed; NSR. Nonspecific ST-T wave abnormalities echo reviewed; 1. Normal left ventricular cavity size. Mild concentric left ventricular hypertrophy. Ejection fraction is visually estimated at 50 %. Tissue Doppler/Mitral Doppler indices are consistent with impaired relaxation (Stage I diastolic dysfunction). Multiple segmental wall motion abnormalities. These segments of the LV are hypokinetic mid anterior segment, apical anterior segment. and apical septum. 2. Normal appearance of the mitral valve. Mild mitral annular calcification. Trace mitral regurgitation. 3. Aortic valve not well visualized. No hemodynamically significant aortic stenosis by doppler. Aortic cusps appear moderately calcified. Mild aortic valve regurgitation. 4. Normal appearance of the tricuspid valve. Estimated peak PA systolic pressure 33 mmHg. There is trace tricuspid regurgitation. CT and MRI abd results were reviewed. Objective Vital Signs Date Time Temp Pulse Resp B/P Pulse Ox O2 Delivery O2 Flow Rate FiO2 08/12/17 13:40 80 20 94 21 08/12/17 07:43 98.3 123/57 08/09/17 20:00 Room Air Intake and Output 08/11/17 08/11/17 08/12/17 15:00 23:00 07:00 Intake Total 1140 ml 1400 ml Output Total 850 ml 700 ml Balance 290 ml 700 ml Results/Medications Result Diagram: 08/12/17 0503 08/12/17 0503 Results 24 hrs Laboratory Tests Test 08/11/17 17:21 08/11/17 20:51 08/12/17 01:38 08/12/17 05:03 Bedside Glucose 142 191 126 White Blood Count 4.2 L Red Blood Count 3.44 L Hemoglobin 10.3 L Hematocrit 30.5 L Mean Corpuscular Volume 88.7 Mean Corpuscular Hemoglobin 29.9 Mean Corpuscular Hemoglobin Concent 33.8 Red Cell Distribution Width 15.0 H Platelet Count 218 Mean Platelet Volume 9.8 Neutrophils % 32.7 L Lymphocytes % 23.9 Monocytes % 21.5 H Eosinophils % 20.0 H Basophils % 0.7 Nucleated Red Blood Cells % 0.0 Neutrophils # 1.4 L Lymphocytes # 1.0 Monocytes # 0.9 Eosinophils # 0.8 H Basophils # 0.0 Nucleated Red Blood Cells # 0.0 Erythrocyte Sedimentation Rate 80 H Sodium Level 133 L Potassium Level 4.3 Chloride Level 100 Carbon Dioxide Level 30 Anion Gap 7 L Blood Urea Nitrogen 13 Creatinine 1.13 Glucose Level 108 Calcium Level 8.4 Test 08/12/17 08:09 08/12/17 12:17 Bedside Glucose 109 143 Medications Current Medications Miscellaneous Information 1 ea NOTE XX ; Start 07/28/17 at 19:30 Glucose (Glutose) 15 gm Q15M PRN PO DECREASED GLUCOSE; Start 07/28/17 at 19:30 Glucose (Glutose) 22.5 gm Q15M PRN PO DECREASED GLUCOSE; Start 07/28/17 at 19: 30 Dextrose (D50w Syringe) 25 ml Q15M PRN IV DECREASED GLUCOSE; Start 07/28/17 at 19:30 Dextrose (D50w Syringe) 50 ml Q15M PRN IV DECREASED GLUCOSE; Start 07/28/17 at 19:30 Glucagon (Glucagen) 1 mg Q15M PRN IM DECREASED GLUCOSE; Start 07/28/17 at 19: 30 Glucose (Glutose) 15 gm Q15M PRN BUCCAL DECREASED GLUCOSE; Start 07/28/17 at 19:30 Carvedilol (Coreg) 6.25 mg BID PO Last administered on 08/12/17 08:17; Admin Dose 6.25 MG; Start 07/29/17 at 21:00 Atorvastatin Calcium (Lipitor) 80 mg HS PO Last administered on 08/11/17 20:48 ; Admin Dose 80 MG; Start 07/29/17 at 21:00 Acetaminophen (Tylenol Tab) 500 mg Q4H PRN PO PAIN AND OR ELEVATED TEMP Last administered on 08/11/17 14:27; Admin Dose 500 MG; Start 07/31/17 at 11:30 Pantoprazole (Protonix Tab) 40 mg BID@06,18 PO Last administered on 08/12/17 05:26; Admin Dose 40 MG; Start 07/31/17 at 18:00 Diagnostic Test (Pha) (Accu-Chek) 1 ea 02 XX Last administered on 08/12/17 01: 40; Admin Dose 1 EA; Start 08/05/17 at 02:00 Insulin Glargine 12 unit 12 unit QHS SC Last administered on 08/11/17 20:53; Admin Dose 12 UNIT; Start 08/10/17 at 21:00 Levofloxacin/ Dextrose (Levaquin 500mg/ D5W 100 ml (Pmx)) 100 ml @ 100 mls/hr Q24H IVPB Last administered on 08/11/17 17:17; Admin Dose 100 MLS/HR; Start 08/11/17 at 17:00 Oxycodone/ Acetaminophen 1 tab 1 tab TID PO Last administered on 08/12/17 13: 10; Admin Dose 1 TAB; Start 08/11/17 at 21:00 Vancomycin HCl/ Sodium Chloride (Vancocin/NS) 250 ml @ 83.333 mls/ hr Q24H IVPB ; Start 08/12/17 at 18:00 Assessment/Plan Chief Complaint/Hosp Course 1. NSTEMI 2. GI bleed/ PUD 3. HTN 4. DM 5. Severe anemia due to above 6. dyslipidemia 7. hx TIA 8. HX of poor compliance 9. liver lesion: f/u with GI rec 10. fluid overload. Recommendations: s/p transfusions. Hgb is stable. he is not on ASA now due to his active GI bleed. RECOMMEND STARTING ECASA 81 mg po daily as soon as ok with GI. so far GI has requested a month off of asa for now and pt to have endoscopy in a few weeks. I will CONT the patient on carvedilol and lipitor for now. Diabetic management/insulin as per internal medicine. liver mass work up as per IM/ GI/ hem onc / surgery . pt does not want work up at this point per daughters will need bell angiogram IF any major surgery is anticipated for risk stratification prior to the surgery. for now pt does not want anything done Thank you for his referral will continue to follow along with you. ADELFO CHOE MD [facility] Problems: ADELFO CHOE MD Aug 12, 2017 14:00
[2017-08-12 14:12] VITALS: BP 134/65; RESP 18
[2017-08-12] MEDS ORDERED: BUPIVACAINE 0.5%/EPI (SDV) 30 ML INJ INJ ONE (14:30)
[2017-08-12] MEDS ORDERED: BETAMET NA PHOS/AC(6 MG/ML) 5ML INJ INJ ONE (14:30)
[2017-08-12] MEDS ORDERED: BUPIVACAINE 0.5%/EPI 1:200,000 50 ML (MDV) INJ SCH (15:00)
[2017-08-12] MEDS: LEVOFLOXACIN 500MG/D5W (PMX) 100 ML IVPB SCH (17:00)
[2017-08-12] MEDS: VANCOMYCIN 1.5 GM in SOD CHLORIDE 0.9% 250 ML IVPB SCH (17:53)
[2017-08-12 19:47] VITALS: BP 141/64; RESP 20
[2017-08-12] MEDS: ATORVASTATIN 80 MG TAB PO SCH (20:49)
[2017-08-12] MEDS: INSULIN GLARGINE [LANtus] 3 ML PEN SC SCH (20:54)
[2017-08-13] MEDS: ALBUTEROL/IPRATROPIUM (NEB) 3 ML AMP HHN SCH ×4 (01:23→20:15)
[2017-08-13] MEDS: ACCU-CHEK XX SCH (01:25)
[2017-08-13 02:27] VITALS: BP 138/62; RESP 20
[2017-08-13] MEDS: PANTOPRAZOLE (EC) 40 MG TAB PO SCH ×2 (05:28→17:14)
[2017-08-13 05:55] LABS: ABNORMAL IP MESSAGE 1; HEMATOCRIT 31.3 % (42.0-52.0); HEMOGLOBIN 10.6 g/dl (14.0-18.0); MEAN CORPUSCULAR HEMOGLOBIN 29.5 pg (29.0-33.0); MEAN CORPUSCULAR HGB CONC 33.9 g/dl (32.0-37.0); MEAN CORPUSCULAR VOLUME 87.2 fl (82.0-101.0); MEAN PLATELET VOLUME 9.6 fl (7.4-10.4); PLATELET COUNT 237 10^3/UL (140-415); POSITIVE DIFF @See below; RED BLOOD COUNT 3.59 10^6/ul (4.70-6.10); RED CELL DISTRIBUTION WIDTH 14.6 % (11.5-14.5); WHITE BLOOD COUNT 2.5 10^3/ul (4.8-10.8)
[2017-08-13 06:20] LABS: CALCIUM 8.7 mg/dl (8.4-10.2); CREATININE 1.1 mg/dl (0.61-1.24); POTASSIUM 4.9 mmol/L (3.5-5.1)
[2017-08-13] MEDS: OXYCODONE/ACETAMINOPHEN (5/325) TAB PO SCH ×3 (08:21→21:00)
[2017-08-13] MEDS: INSULIN ASPART [NOVOLOG] 3 ML PEN SC SCH ×7 (08:22→21:38)
[2017-08-13 09:30] LABS: ANISOCYTOSIS 1+ (0-0); EOSINOPHILS % (M) 3 % (0-7); GIANT THROMBO% (M) 3 % (0-0); MICROCYTOSIS 1+ (0-0); MONOCYTES % (M) 4 % (0-11); PLATELET ESTIMATE NORMAL; POLYCHROMASIA 3+ (0-0)
--- NOTE | 2017-08-13 09:35 | CONS ---
Date/Time of Note Date/Time of Note DATE: 08/13/17 TIME: 09:34 Consult Date/Type/Reason Admit Date/Time Jul 28, 2017 at 17:35 Initial Consult Date 07/28/17 Type of Consultation: cardiology Ordering Provider: ASHOK KAN MD Subjective cardiology follow up note: S: Discussed with the staff Patient denies any active chest pain or pressure to me. Denies any active bleeding to me. Denies any palpitation to me. s/p EGD on 07/30/17 showing PUD. he denies sob now he c.o left foot pain only O: General: obese no acute distress HEENT: NC/AT. pupils are equal. round. NECK: NO JVD. no stridor. CV: RRR. systolic murmur; no gallop or rubs. PULM: no wheezing GI: SOFT, NT, ND, no rebound or guarding Extremity: trace B/L LE edema. no clubbing. neuro: awake and alert, OX3. Psych: calm and pleasant rectal: deferred DERM: Multiple diffuse ecchymosis. EG reviewed; NSR. Nonspecific ST-T wave abnormalities echo reviewed; 1. Normal left ventricular cavity size. Mild concentric left ventricular hypertrophy. Ejection fraction is visually estimated at 50 %. Tissue Doppler/Mitral Doppler indices are consistent with impaired relaxation (Stage I diastolic dysfunction). Multiple segmental wall motion abnormalities. These segments of the LV are hypokinetic mid anterior segment, apical anterior segment. and apical septum. 2. Normal appearance of the mitral valve. Mild mitral annular calcification. Trace mitral regurgitation. 3. Aortic valve not well visualized. No hemodynamically significant aortic stenosis by doppler. Aortic cusps appear moderately calcified. Mild aortic valve regurgitation. 4. Normal appearance of the tricuspid valve. Estimated peak PA systolic pressure 33 mmHg. There is trace tricuspid regurgitation. CT and MRI abd results were reviewed. Objective Vital Signs Date Time Temp Pulse Resp B/P Pulse Ox O2 Delivery O2 Flow Rate FiO2 08/13/17 07:28 72 18 97 21 08/13/17 02:27 98.2 138/62 08/09/17 20:00 Room Air Intake and Output 08/12/17 08/12/17 08/13/17 15:00 23:00 07:00 Intake Total 960 ml 670 ml Output Total 600 ml 900 ml Balance 360 ml -230 ml Results/Medications Result Diagram: 08/13/17 0535 08/13/17 0535 Results 24 hrs Laboratory Tests Test 08/12/17 12:17 08/12/17 17:08 08/12/17 20:50 08/13/17 05:35 Bedside Glucose 143 76 180 White Blood Count 2.5 #L Red Blood Count 3.59 L Hemoglobin 10.6 L Hematocrit 31.3 L Mean Corpuscular Volume 87.2 Mean Corpuscular Hemoglobin 29.5 Mean Corpuscular Hemoglobin Concent 33.9 Red Cell Distribution Width 14.6 H Platelet Count 237 Mean Platelet Volume 9.6 Neutrophils % Segmented Neutrophils % (Manual) 63 Band Neutrophils % (Manual) 10 H Lymphocytes % Lymphocytes % (Manual) 19 Monocytes % Monocytes % (Manual) 4 Eosinophils % Eosinophils % (Manual) 3 Basophils % Nucleated Red Blood Cells % 0.0 Neutrophils # Neutrophils # (Manual) 1.6 L Band Neutrophils # 0.2 Absolute Lymphocytes (Manual) 0.4 L Lymphocytes # Monocytes # Absolute Monocytes (Manual) 0.1 L Eosinophils # Basophils # Nucleated Red Blood Cells # Platelet Estimate NORMAL Giant Platelets 3 H Polychromasia 3+ Anisocytosis 1+ Microcytosis 1+ Sodium Level 130 L Potassium Level 4.9 Chloride Level 98 Carbon Dioxide Level 25 Anion Gap 12 Blood Urea Nitrogen 15 Creatinine 1.10 Glucose Level 249 #H Calcium Level 8.7 Test 08/13/17 08:11 Bedside Glucose 270 H Medications Current Medications Miscellaneous Information 1 ea NOTE XX ; Start 07/28/17 at 19:30 Glucose (Glutose) 15 gm Q15M PRN PO DECREASED GLUCOSE; Start 07/28/17 at 19:30 Glucose (Glutose) 22.5 gm Q15M PRN PO DECREASED GLUCOSE; Start 07/28/17 at 19: 30 Dextrose (D50w Syringe) 25 ml Q15M PRN IV DECREASED GLUCOSE; Start 07/28/17 at 19:30 Dextrose (D50w Syringe) 50 ml Q15M PRN IV DECREASED GLUCOSE; Start 07/28/17 at 19:30 Glucagon (Glucagen) 1 mg Q15M PRN IM DECREASED GLUCOSE; Start 07/28/17 at 19: 30 Glucose (Glutose) 15 gm Q15M PRN BUCCAL DECREASED GLUCOSE; Start 07/28/17 at 19:30 Carvedilol (Coreg) 6.25 mg BID PO Last administered on 08/13/17 08:21; Admin Dose 6.25 MG; Start 07/29/17 at 21:00 Atorvastatin Calcium (Lipitor) 80 mg HS PO Last administered on 08/12/17 20:49 ; Admin Dose 80 MG; Start 07/29/17 at 21:00 Acetaminophen (Tylenol Tab) 500 mg Q4H PRN PO PAIN AND OR ELEVATED TEMP Last administered on 08/11/17 14:27; Admin Dose 500 MG; Start 07/31/17 at 11:30 Pantoprazole (Protonix Tab) 40 mg BID@06,18 PO Last administered on 08/13/17 05:28; Admin Dose 40 MG; Start 07/31/17 at 18:00 Diagnostic Test (Pha) (Accu-Chek) 1 ea 02 XX Last administered on 08/12/17 01: 40; Admin Dose 1 EA; Start 08/05/17 at 02:00 Insulin Glargine 12 unit 12 unit QHS SC Last administered on 08/12/17 20:54; Admin Dose 12 UNIT; Start 08/10/17 at 21:00 Levofloxacin/ Dextrose (Levaquin 500mg/ D5W 100 ml (Pmx)) 100 ml @ 100 mls/hr Q24H IVPB Last administered on 08/12/17 17:00; Admin Dose 100 MLS/HR; Start 08/11/17 at 17:00 Oxycodone/ Acetaminophen 1 tab 1 tab TID PO Last administered on 08/13/17 08: 21; Admin Dose 1 TAB; Start 08/11/17 at 21:00 Vancomycin HCl/ Sodium Chloride (Vancocin/NS) 250 ml @ 83.333 mls/ hr Q24H IVPB Last administered on 08/12/17 17:53; Admin Dose 83.333 MLS/HR; Start 08/12/17 at 18:00 Assessment/Plan Chief Complaint/Hosp Course 1. NSTEMI 2. GI bleed/ PUD 3. HTN 4. DM 5. Severe anemia due to above 6. dyslipidemia 7. hx TIA 8. HX of poor compliance 9. liver lesion: f/u with GI rec 10. fluid overload: resolved now 11. foot pain: will defer to IM, Recommendations: s/p transfusions. Hgb is stable. he is not on ASA now due to his active GI bleed. RECOMMEND STARTING ECASA 81 mg po daily as soon as ok with GI. so far GI has requested a month off of asa for now and pt to have endoscopy in a few weeks. I will CONT the patient on carvedilol and lipitor for now. Diabetic management/insulin as per internal medicine. liver mass work up as per IM/ GI/ hem onc / surgery . pt does not want work up at this point per daughters will need bell angiogram IF any major surgery is anticipated for risk stratification prior to the surgery. for now pt does not want anything done Thank you for his referral will continue to follow along with you. ADELFO CHOE MD [facility] Problems: ADELFO CHOE MD Aug 13, 2017 09:35
--- NOTE | 2017-08-13 10:49 | CONS ---
DATE OF ADMISSION: 07/28/2017 DATE OF CONSULTATION: 08/12/2017 HISTORY OF PRESENT ILLNESS: Patient is a 81-year-old male who was admitted on the 28 July 2017 when he came to the emergency room complaining of dizziness of 2 weeks duration along with 3 days history of tarry stool. He was found to be anemic and doing the EGD, he was found to have a pyloric ulcer and was treated properly with satisfactory recovery. He was about to be discharged a couple of days ago when he developed painful swelling involving his left ankle. Denies any memorable trauma involving the left ankle. Denies any fever or chills. At the time of my evaluation and throughout his hospitalization, he has been afebrile. The laboratory studies did not show any leukocytosis at any time and the latest CBC shows a WBC count of 4.2, sed rate was high with 80. PHYSICAL EXAMINATION: GENERAL APPEARANCE: Reveals a 81-year-old gentleman who was complaining of pain around the left ankle. EXTREMITIES: Even though there is some redness medially along with more tenderness, he was showing circumferential tenderness around the ankle joint with the signs of the effusion. IMAGING DATA: The x-ray study is showing an old posttraumatic deformity of the medial malleolus. There was no fracture or dislocation. There were mild probably posttraumatic degenerative changes in the ankle joint. There was no evidence of chondrocalcinosis or loose body. IMPRESSION: Painful swelling of the . Differential diagnoses should include: 1. Crystalline arthritis, such as gout or pseudogout. 2. Symptomatic exacerbation of pre-existing degenerative osteoarthritis. 3. Septic arthritis. TREATMENT PLAN: Trial of aspiration of the left ankle joint. If aspirate is not grossly , then the trial of steroid injection. Dictated By: In Pilar Cherry MD /emely/john /Document#: [id number]
--- NOTE | 2017-08-13 16:22 | PN ---
Date/Time of Note Date/Time of Note DATE: 08/13/17 TIME: 16:19 Assessment/Plan VTE Prophylaxis VTE Prophylaxis Intervention: SCD's Lines/Catheters IV Catheter Type (from Rust): Saline Lock Urinary Cath still in place: No Assessment/Plan Chief Complaint/Hosp Course Patient blood sugar is elevated patient status post fluid aspiration and betamethasone injection in the left ankle. Continue to monitor blood sugar, follow-up on culture. Assessment/Plan - Left ankle swelling swelling erythema and tenderness, rule out septic arthritis, Dr. Cherry is following in orthopedic surgery consultation, continue broad-spectrum antibiotics, follow up on left ankle fluid aspiration culture. - NSTEMI. Dr. Cook is following in cardiology consultation. Due to high risk for a GI rebleeding patient is not advised to hold aspirin for one month per GI. - GI bleed. Prepyloric ulcer status post 3 Hemoclips application during EGD. continue Protonix. Dr. Grove is following in gastroenterology consultation. - H pylori per biopsy, continue H pylori eradication regimen. - Anemia of acute blood loss and iron deficiency anemia. s/p blood transfusion. continue to monitor hemoglobin and hematocrit. Continue iron supplements. - HTN, patient is currently normotensive - DM hemoglobin A1c 8.5. Continue Lantus and pre-meal NovoLog. - Dyslipidemia - 2.3 cm lesion at the dome of the liver and leukocytopenia, Dr. Marcelo is following in hematology consultation. It was decided not to pursue with liver biopsy at this time due to high risk for bleeding and family decision. Dr. Gallo is is evaluated patient in general surgery consultation. Triple CT of the abdomen per liver protocol is recommended in 3 months. Further recommendations based on clinical course. Plan of care discussed with Dr. Oglesby. Problems: Exam/Review of Systems Vital Signs Vitals Vital Signs Date Time Temp Pulse Resp B/P Pulse Ox O2 Delivery O2 Flow Rate FiO2 08/13/17 13:57 77 20 97 21 08/13/17 02:27 98.2 138/62 08/09/17 20:00 Room Air Intake and Output 08/12/17 08/12/17 08/13/17 14:59 22:59 06:59 Intake Total 960 ml 670 ml Output Total 600 ml 900 ml Balance 360 ml -230 ml Exam Constitutional: alert, oriented Respiratory: normal air movement Cardiovascular: nl pulses Gastrointestinal: non-tender, soft Musculoskeletal: nl extremities to inspection Extremities: normal pulses, left ankle swelling and erythema Results Result Diagram: 08/13/17 0535 08/13/17 0535 Results 24 hrs Laboratory Tests Test 08/12/17 17:08 08/12/17 20:50 08/13/17 05:35 08/13/17 08:11 Bedside Glucose 76 180 270 H White Blood Count 2.5 #L Red Blood Count 3.59 L Hemoglobin 10.6 L Hematocrit 31.3 L Mean Corpuscular Volume 87.2 Mean Corpuscular Hemoglobin 29.5 Mean Corpuscular Hemoglobin Concent 33.9 Red Cell Distribution Width 14.6 H Platelet Count 237 Mean Platelet Volume 9.6 Neutrophils % Segmented Neutrophils % (Manual) 63 Band Neutrophils % (Manual) 10 H Lymphocytes % Lymphocytes % (Manual) 19 Monocytes % Monocytes % (Manual) 4 Eosinophils % Eosinophils % (Manual) 3 Basophils % Nucleated Red Blood Cells % 0.0 Neutrophils # Neutrophils # (Manual) 1.6 L Band Neutrophils # 0.2 Absolute Lymphocytes (Manual) 0.4 L Lymphocytes # Monocytes # Absolute Monocytes (Manual) 0.1 L Eosinophils # Basophils # Nucleated Red Blood Cells # Platelet Estimate NORMAL Giant Platelets 3 H Polychromasia 3+ Anisocytosis 1+ Microcytosis 1+ Sodium Level 130 L Potassium Level 4.9 Chloride Level 98 Carbon Dioxide Level 25 Anion Gap 12 Blood Urea Nitrogen 15 Creatinine 1.10 Glucose Level 249 #H Calcium Level 8.7 Test 08/13/17 11:21 08/13/17 12:10 Lab Scanned Report BLOOD TRANSFUSION Bedside Glucose 342 H Medications Medications Current Medications Miscellaneous Information 1 ea NOTE XX ; Start 07/28/17 at 19:30 Glucose (Glutose) 15 gm Q15M PRN PO DECREASED GLUCOSE; Start 07/28/17 at 19:30 Glucose (Glutose) 22.5 gm Q15M PRN PO DECREASED GLUCOSE; Start 07/28/17 at 19: 30 Dextrose (D50w Syringe) 25 ml Q15M PRN IV DECREASED GLUCOSE; Start 07/28/17 at 19:30 Dextrose (D50w Syringe) 50 ml Q15M PRN IV DECREASED GLUCOSE; Start 07/28/17 at 19:30 Glucagon (Glucagen) 1 mg Q15M PRN IM DECREASED GLUCOSE; Start 07/28/17 at 19: 30 Glucose (Glutose) 15 gm Q15M PRN BUCCAL DECREASED GLUCOSE; Start 07/28/17 at 19:30 Carvedilol (Coreg) 6.25 mg BID PO Last administered on 08/13/17 08:21; Admin Dose 6.25 MG; Start 07/29/17 at 21:00 Atorvastatin Calcium (Lipitor) 80 mg HS PO Last administered on 08/12/17 20:49 ; Admin Dose 80 MG; Start 07/29/17 at 21:00 Acetaminophen (Tylenol Tab) 500 mg Q4H PRN PO PAIN AND OR ELEVATED TEMP Last administered on 08/11/17 14:27; Admin Dose 500 MG; Start 07/31/17 at 11:30 Pantoprazole (Protonix Tab) 40 mg BID@06,18 PO Last administered on 08/13/17 05:28; Admin Dose 40 MG; Start 07/31/17 at 18:00 Diagnostic Test (Pha) (Accu-Chek) 1 ea 02 XX Last administered on 08/12/17 01: 40; Admin Dose 1 EA; Start 08/05/17 at 02:00 Insulin Glargine 12 unit 12 unit QHS SC Last administered on 08/12/17 20:54; Admin Dose 12 UNIT; Start 08/10/17 at 21:00 Levofloxacin/ Dextrose (Levaquin 500mg/ D5W 100 ml (Pmx)) 100 ml @ 100 mls/hr Q24H IVPB Last administered on 08/12/17 17:00; Admin Dose 100 MLS/HR; Start 08/11/17 at 17:00 Oxycodone/ Acetaminophen 1 tab 1 tab TID PO Last administered on 08/13/17 12: 08; Admin Dose 1 TAB; Start 08/11/17 at 21:00 Vancomycin HCl/ Sodium Chloride (Vancocin/NS) 250 ml @ 83.333 mls/ hr Q24H IVPB Last administered on 08/12/17 17:53; Admin Dose 83.333 MLS/HR; Start 08/12/17 at 18:00 Miscellaneous Information (*Rx Drug Level Order Reminder*) VANCO TR LEVEL PRIOR... ONCE ONCE XX ; Start 08/14/17 at 17:00; Stop 08/14/17 at 17:01 AKIRA ADAMS Aug 13, 2017 16:22
[2017-08-13] MEDS: LEVOFLOXACIN 500MG/D5W (PMX) 100 ML IVPB SCH (16:39)
[2017-08-13] MEDS: VANCOMYCIN 1.5 GM in SOD CHLORIDE 0.9% 250 ML IVPB SCH (17:14)
--- NOTE | 2017-08-13 20:27 | PN ---
DATE: 08/13/2017 The patient reports much less pain following the intra-articular injection of the left ankle joint with steroid. Repeated examination revealed a much less effusion and less swelling around the right ankle. Range of motion of the right ankle is less painful. He could be up and around with weightbearing as tolerated at this time. Okay to be discharged from orthopedics point. Dictated By: In Pilar Cherry MD /emely/man /Document#: [id number]
[2017-08-13 20:37] VITALS: BP 133/75; RESP 20
[2017-08-13] MEDS: ATORVASTATIN 80 MG TAB PO SCH (21:27)
[2017-08-13] MEDS: INSULIN GLARGINE [LANtus] 3 ML PEN SC SCH (21:42)
[2017-08-14] MEDS: ALBUTEROL/IPRATROPIUM (NEB) 3 ML AMP HHN SCH ×4 (01:14→19:47)
[2017-08-14 02:00] VITALS: BP 124/61; RESP 20
[2017-08-14] MEDS: ACCU-CHEK XX SCH (02:48)
[2017-08-14] MEDS: PANTOPRAZOLE (EC) 40 MG TAB PO SCH ×2 (05:34→17:43)
[2017-08-14 06:16] LABS: BASOPHILS % 0.4 % (0.0-2.0); EOSINOPHILS % 0.8 % (0.0-7.0); HEMATOCRIT 30.1 % (42.0-52.0); HEMOGLOBIN 10.3 g/dl (14.0-18.0); LYMPHOCYTES # 0.7 10^3/ul (0.8-2.9); LYMPHOCYTES % 14.6 % (15.0-51.0); MEAN CORPUSCULAR HEMOGLOBIN 29.7 pg (29.0-33.0); MEAN CORPUSCULAR HGB CONC 34.2 g/dl (32.0-37.0); MEAN CORPUSCULAR VOLUME 86.7 fl (82.0-101.0); MEAN PLATELET VOLUME 9.7 fl (7.4-10.4); MONOCYTE # 0.7 10^3/ul (0.3-0.9); MONOCYTES % 13.2 % (0.0-11.0); NEUTROPHIL # 3.4 10^3/ul (1.6-7.5); NEUTROPHILS % 69.4 % (39.0-77.0); PLATELET COUNT 281 10^3/UL (140-415); RED BLOOD COUNT 3.47 10^6/ul (4.70-6.10); RED CELL DISTRIBUTION WIDTH 14.6 % (11.5-14.5); WHITE BLOOD COUNT 4.9 10^3/ul (4.8-10.8)
[2017-08-14 06:41] LABS: CALCIUM 8.8 mg/dl (8.4-10.2); CREATININE 0.99 mg/dl (0.61-1.24); POTASSIUM 4.3 mmol/L (3.5-5.1)
[2017-08-14 07:37] VITALS: BP 141/79; RESP 20
[2017-08-14] MEDS: OXYCODONE/ACETAMINOPHEN (5/325) TAB PO SCH ×3 (08:43→20:26)
[2017-08-14] MEDS: INSULIN ASPART [NOVOLOG] 3 ML PEN SC SCH ×7 (08:46→20:34)
--- NOTE | 2017-08-14 10:44 | CONS ---
Date/Time of Note Date/Time of Note DATE: 08/14/17 TIME: 10:44 Consult Date/Type/Reason Admit Date/Time Jul 28, 2017 at 17:35 Initial Consult Date 07/28/17 Type of Consultation: cardiology Ordering Provider: ASHOK KAN MD Subjective cardiology follow up note: S: Discussed with the staff Patient denies any active chest pain or pressure to me. Denies any active bleeding to me. Denies any palpitation to me. s/p EGD on 07/30/17 showing PUD. he denies sob now he c.o left foot pain only O: General: obese no acute distress HEENT: NC/AT. pupils are equal. round. NECK: NO JVD. no stridor. CV: RRR. systolic murmur; no gallop or rubs. PULM: no wheezing GI: SOFT, NT, ND, no rebound or guarding Extremity: trace B/L LE edema. no clubbing. neuro: awake and alert, OX3. Psych: calm and pleasant rectal: deferred DERM: Multiple diffuse ecchymosis. Objective Vital Signs Date Time Temp Pulse Resp B/P Pulse Ox O2 Delivery O2 Flow Rate FiO2 08/14/17 08:46 84 18 96 21 08/14/17 07:37 98.6 141/79 Intake and Output 08/13/17 08/13/17 08/14/17 15:00 23:00 07:00 Intake Total 350 ml 480 ml Output Total 2300 ml Balance 350 ml -1820 ml Results/Medications Result Diagram: 08/14/17 0534 08/14/17 0534 Results 24 hrs Laboratory Tests Test 08/13/17 11:21 08/13/17 12:10 08/13/17 17:13 08/13/17 21:36 Lab Scanned Report BLOOD TRANSFUSION Bedside Glucose 342 H 278 H 208 Test 08/14/17 02:30 08/14/17 05:34 08/14/17 08:00 Bedside Glucose 207 216 White Blood Count 4.9 # Red Blood Count 3.47 L Hemoglobin 10.3 L Hematocrit 30.1 L Mean Corpuscular Volume 86.7 Mean Corpuscular Hemoglobin 29.7 Mean Corpuscular Hemoglobin Concent 34.2 Red Cell Distribution Width 14.6 H Platelet Count 281 Mean Platelet Volume 9.7 Neutrophils % 69.4 Lymphocytes % 14.6 L Monocytes % 13.2 H Eosinophils % 0.8 Basophils % 0.4 Nucleated Red Blood Cells % 0.0 Neutrophils # 3.4 Lymphocytes # 0.7 L Monocytes # 0.7 Eosinophils # 0.0 Basophils # 0.0 Nucleated Red Blood Cells # 0.0 Sodium Level 137 Potassium Level 4.3 Chloride Level 103 Carbon Dioxide Level 29 Anion Gap 9 Blood Urea Nitrogen 18 Creatinine 0.99 Glucose Level 216 Calcium Level 8.8 Medications Current Medications Miscellaneous Information 1 ea NOTE XX ; Start 07/28/17 at 19:30 Glucose (Glutose) 15 gm Q15M PRN PO DECREASED GLUCOSE; Start 07/28/17 at 19:30 Glucose (Glutose) 22.5 gm Q15M PRN PO DECREASED GLUCOSE; Start 07/28/17 at 19: 30 Dextrose (D50w Syringe) 25 ml Q15M PRN IV DECREASED GLUCOSE; Start 07/28/17 at 19:30 Dextrose (D50w Syringe) 50 ml Q15M PRN IV DECREASED GLUCOSE; Start 07/28/17 at 19:30 Glucagon (Glucagen) 1 mg Q15M PRN IM DECREASED GLUCOSE; Start 07/28/17 at 19: 30 Glucose (Glutose) 15 gm Q15M PRN BUCCAL DECREASED GLUCOSE; Start 07/28/17 at 19:30 Carvedilol (Coreg) 6.25 mg BID PO Last administered on 08/14/17 08:42; Admin Dose 6.25 MG; Start 07/29/17 at 21:00 Atorvastatin Calcium (Lipitor) 80 mg HS PO Last administered on 08/13/17 21:27 ; Admin Dose 80 MG; Start 07/29/17 at 21:00 Acetaminophen (Tylenol Tab) 500 mg Q4H PRN PO PAIN AND OR ELEVATED TEMP Last administered on 08/11/17 14:27; Admin Dose 500 MG; Start 07/31/17 at 11:30 Pantoprazole (Protonix Tab) 40 mg BID@06,18 PO Last administered on 08/14/17 05:34; Admin Dose 40 MG; Start 07/31/17 at 18:00 Diagnostic Test (Pha) (Accu-Chek) 1 ea 02 XX Last administered on 08/14/17 02: 48; Admin Dose 1 EA; Start 08/05/17 at 02:00 Insulin Glargine 12 unit 12 unit QHS SC Last administered on 08/13/17 21:42; Admin Dose 12 UNIT; Start 08/10/17 at 21:00 Levofloxacin/ Dextrose (Levaquin 500mg/ D5W 100 ml (Pmx)) 100 ml @ 100 mls/hr Q24H IVPB Last administered on 08/13/17 16:39; Admin Dose 100 MLS/HR; Start 08/11/17 at 17:00 Oxycodone/ Acetaminophen 1 tab 1 tab TID PO Last administered on 08/14/17 08: 43; Admin Dose 1 TAB; Start 08/11/17 at 21:00 Vancomycin HCl/ Sodium Chloride (Vancocin/NS) 250 ml @ 83.333 mls/ hr Q24H IVPB Last administered on 08/13/17 17:14; Admin Dose 83.333 MLS/HR; Start 08/12/17 at 18:00 Miscellaneous Information (*Rx Drug Level Order Reminder*) VANCO TR LEVEL PRIOR... ONCE ONCE XX ; Start 08/14/17 at 17:00; Stop 08/14/17 at 17:01 Assessment/Plan Chief Complaint/Hosp Course 1. NSTEMI 2. GI bleed/ PUD 3. HTN 4. DM 5. Severe anemia due to above 6. dyslipidemia 7. hx TIA 8. HX of poor compliance 9. liver lesion: f/u with GI rec 10. fluid overload: resolved now 11. foot pain: will defer to IM, Recommendations: s/p transfusions. Hgb is stable. he is not on ASA now due to his active GI bleed. RECOMMEND STARTING ECASA 81 mg po daily as soon as ok with GI. so far GI has requested a month off of asa for now and pt to have endoscopy in a few weeks. I will CONT the patient on carvedilol and lipitor for now. Diabetic management/insulin as per internal medicine. liver mass work up as per IM/ GI/ hem onc / surgery . pt does not want work up at this point per daughters will need bell angiogram IF any major surgery is anticipated for risk stratification prior to the surgery. for now pt does not want anything done Thank you for his referral will continue to follow along with you. ADELFO CHOE MD [facility] Problems: ADELFO CHOE MD Aug 14, 2017 10:44
[2017-08-14 13:26] VITALS: BP 139/73; RESP 18
--- NOTE | 2017-08-14 15:31 | CONS ---
DATE OF ADMISSION: 07/28/2017 DATE OF CONSULTATION: The patient has no abdominal pain. Patient's liver lesion has been evaluated by Dr. Gallo. Tumor markers were normal. He does not believe he has metastatic disease, so hence, no obvious workup has been considered. PHYSICAL EXAMINATION: GENERAL: The patient is alert. ABDOMEN: His abdomen is soft. The liver panel is normal. CLINICAL IMPRESSION: Nonspecific lesion in the liver which is considered to be insignificant. He has got a bleeding duodenal gastric ulcer which is under control with no active bleeding noted at this time. Hemoglobin is 10.3. PLAN: Recommend to continue proton pump inhibitor therapy. Dictated By: JULIO OLMOS/URIEL Conf#: [id number] DID#: [id number]
[2017-08-14] MEDS: LEVOFLOXACIN 500MG/D5W (PMX) 100 ML IVPB SCH (16:56)
--- NOTE | 2017-08-14 17:07 | PN ---
DATE: 08/14/2017 SUBJECTIVE DATA: Symptomatic improvement remains. He was able to be up and around with weightbearing as tolerated. Minimal swelling, less tenderness around the ankle. Dictated By: In Pilar Cherry MD /emely/kevan /Document#: [id number]
[2017-08-14] MEDS: VANCOMYCIN 1.5 GM in SOD CHLORIDE 0.9% 250 ML IVPB SCH (18:31)
[2017-08-14 19:35] VITALS: BP 163/76; RESP 20
[2017-08-14] MEDS ORDERED: PANT40TA3 PO (20:24)
[2017-08-14] MEDS ORDERED: AMOX500C2 PO (20:24)
[2017-08-14] MEDS: ATORVASTATIN 80 MG TAB PO SCH (20:25)
--- NOTE | 2017-08-14 20:28 | PDOCDIS ---
Discharge Instructions CONDITION Patient Condition: Stable HOME CARE INSTRUCTIONS: Special Diet: carb controlled ACTIVITY: Activity Restrictions: Slowly Increase Activity Rest between Activity Avoid heavy lifting Do not Drive Do not operate Machinery Do not operate Power Tool Avoid Heavy Housework Bathing Restrictions: Sponge Bath FOLLOW UP/APPOINTMENTS Follow-up Plan FU with Primary MD X 1 WEEK FU with Ortho as recommended Call 911 or go to the nearest hospital if symptoms get Patient/ family verbalized understanding dc instructions. Rj Reardon/staff AMBER FINLEY Aug 14, 2017 20:28
[2017-08-14] MEDS ORDERED: CARV6.2579 PO (20:31)
[2017-08-14] MEDS ORDERED: ATOR80TA75 PO (20:31)
[2017-08-14] MEDS: INSULIN GLARGINE [LANtus] 3 ML PEN SC SCH (20:33)
[2017-08-14] MEDS ORDERED: OXYC-279 PO (20:55)
[2017-08-14] MEDS ORDERED: LINA5TAB PO ×2 (20:55→21:02)
[2017-08-14] MEDS ORDERED: METF500T4 PO ×2 (20:55→21:02)
[2017-08-14] MEDS ORDERED: ASPI-535 PO ×2 (20:55→21:02)
[2017-08-14] MEDS ORDERED: LISI10TA2 PO ×2 (20:55→21:02)
[2017-08-14] MEDS ORDERED: GUAI-637 PO (20:57)
[2017-08-14] MEDS ORDERED: GUAIFENESIN/CODEINE 5ML CUP PO ONE (21:00)
--- NOTE | 2017-08-14 21:11 | DS ---
Date/Time of Note Date/Time of Note DATE: 08/14/17 TIME: 21:10 Discharge Summary Admission/Discharge Info Admit Date/Time Jul 28, 2017 at 17:35 Discharge Date/Time Hx of Present Illness HPI Patient speaks [place], daughter at the bedside used as a precision agriculture specialist. A- no home meds recorded yet 81-year-old man brought in by daughter for complaints of dizziness 2 weeks and 3 days of black tarry stool, denies bright red blood per rectum. He states he fell 2 weeks ago on his low back pain as well. Patient denies dysuria, no hematuria, no fevers or chills, no weight loss, no vomiting or diarrhea. Patient denies history of alcoholism or other medical conditions. ROS ll systems reviewed and are negative except as per history of present illness. Allergies Allergies: Coded Allergies: No Known Allergy (Unverified , 07/28/17) Home Meds Active Scripts Aspirin Ec (Aspir 81) 81 Mg Tablet.dr, 81 MG PO DAILY, #30 TAB Start Aspirin on 08/30/2017 Prov:AMBER FINLEY 08/14/17 Linagliptin (TRADJENTA) 5 Mg Tablet, 5 MG PO DAILY, #30 TAB Prov:AMBER FINLEY 08/14/17 Metformin* (Glucophage*) 500 Mg Tab, 500 MG PO BID WITH MEALS, #60 TAB Prov:AMBER FINLEY 08/14/17 Lisinopril* (Lisinopril*) 10 Mg Tablet, 10 MG PO DAILY, #30 TAB Prov:AMBER FINLEY 08/14/17 Guaifenesin* (Robitussin*) 100 Mg/5 Ml Syrup, 100 MG PO Q6H Y for COUGH for 5 Days, ML Prov:AMBER FINLEY 08/14/17 Oxycodone HCl/Acetaminophen (Percocet 5-325 mg Tablet) 1 Each Tablet, 1 EACH PO Q8 Y for PAIN LEVEL 7-10, #7 TAB Prov:AMBER FINLEY 08/14/17 Aspirin Ec (Aspir 81) 81 Mg Tablet.dr, 81 MG PO DAILY, #30 TAB Start ASPIRIN ON 08/29. THX Prov:AMBER FINLEY 08/14/17 Linagliptin (TRADJENTA) 5 Mg Tablet, 5 MG PO DAILY, #30 TAB Prov:AMBER FINLEY 08/14/17 Metformin* (Glucophage*) 500 Mg Tab, 500 MG PO BID, #60 TAB Prov:AMBER FINLEY 08/14/17 Lisinopril* (Lisinopril*) 10 Mg Tablet, 10 MG PO DAILY, #30 TAB Prov:AMBER FINLEY 08/14/17 Carvedilol* (Carvedilol*) 6.25 Mg Tablet, 6.25 MG PO BID for 30 Days, TAB Prov:AMBER FINLEY 08/14/17 Atorvastatin* (Atorvastatin*) 80 Mg Tablet, 80 MG PO HS for 30 Days, TAB Prov:AMBER FINLEY 08/14/17 Pantoprazole* (Protonix*) 40 Mg Tablet.dr, 40 MG PO BID, #20 TAB Prov:AMBER FINLEY 08/14/17 Amoxicillin* (Amoxicillin*) 500 Mg Cap, 500 MG PO TID for 7 Days, CAP Prov:AMBER FINLEY 08/14/17 Follow-up Plan FU with Primary MD X 1 WEEK FU with Ortho as recommended Call 911 or go to the nearest hospital if symptoms get Patient/ family verbalized understanding dc instructions. Dw Dr Reardon/staff Primary Care Provider Not On Staff Doctor Time spent on discharge: > 30 minutes Pending Labs Laboratory Tests Test 08/13/17 21:36 08/14/17 02:30 08/14/17 05:34 08/14/17 08:00 Bedside Glucose 208mg/dL (70-220) 207mg/dL (70-220) 216mg/dL (70-220) White Blood Count 4.910^3/ul (4.8-10.8) Red Blood Count 3.4710^6/ul (4.70-6.10) Hemoglobin 10.3g/dl (14.0-18.0) Hematocrit 30.1% (42.0-52.0) Mean Corpuscular Volume 86.7fl (82.0-101.0) Mean Corpuscular Hemoglobin 29.7pg (29.0-33.0) Mean Corpuscular Hemoglobin Concent 34.2g/dl (32.0-37.0) Red Cell Distribution Width 14.6% (11.5-14.5) Platelet Count 70941^3/UL (140-415) Mean Platelet Volume 9.7fl (7.4-10.4) Neutrophils % 69.4% (39.0-77.0) Lymphocytes % 14.6% (15.0-51.0) Monocytes % 13.2% (0.0-11.0) Eosinophils % 0.8% (0.0-7.0) Basophils % 0.4% (0.0-2.0) Nucleated Red Blood Cells % 0.0/100WBC (0.0-0.0) Neutrophils # 3.410^3/ul (1.6-7.5) Lymphocytes # 0.710^3/ul (0.8-2.9) Monocytes # 0.710^3/ul (0.3-0.9) Eosinophils # 0.010^3/ul (0.0-0.5) Basophils # 0.010^3/ul (0.0-0.1) Nucleated Red Blood Cells # 0.010^3/ul (0.0-0.0) Sodium Level 137mmol/L (135-144) Potassium Level 4.3mmol/L (3.5-5.1) Chloride Level 103mmol/L (97-110) Carbon Dioxide Level 29mmol/L (21-31) Anion Gap 9 (8-16) Blood Urea Nitrogen 18mg/dl (7-20) Creatinine 0.99mg/dl (0.61-1.24) Glucose Level 216mg/dl (70-220) Calcium Level 8.8mg/dl (8.4-10.2) Test 08/14/17 12:02 08/14/17 12:07 08/14/17 16:56 08/14/17 17:19 Bedside Glucose 333mg/dL (70-220) 340mg/dL (70-220) 155mg/dL (70-220) Vancomycin Level Trough 12.9ug/ml (10.0-20.0) Test 08/14/17 20:23 Bedside Glucose 239mg/dL (70-220) AMBER FINLEY Aug 14, 2017 21:11
[2017-08-14] MEDS ORDERED: ALBU18HF INHALATION (21:35)
== END 2017-08-14 21:50 | disposition home or self-care (01) | DRG 377 ==
LOC: E/R 13:51 → MS4 17:35 → MS2 07-30 15:40
PROVIDERS: ADMIT Internal Medicine; ATTEND Internal Medicine
PROC: 30233N1 Transfusion of Nonautologous Red Blood Cells into Peripheral Vein, Percutaneous Approach (ICD-10-PCS; 2017-07-28)
PROC: 0W3P8ZZ Control Bleeding in Gastrointestinal Tract, Via Natural or Artificial Opening Endoscopic (ICD-10-PCS; principal; 2017-07-30 12:30)
PROC: 0DB78ZX Excision of Stomach, Pylorus, Via Natural or Artificial Opening Endoscopic, Diagnostic (ICD-10-PCS; 2017-07-30 12:30)
PROC: 0S9G3ZX Drainage of Left Ankle Joint, Percutaneous Approach, Diagnostic (ICD-10-PCS; 2017-08-12)
PROC: 3E0U33Z Introduction of Anti-inflammatory into Joints, Percutaneous Approach (ICD-10-PCS; 2017-08-12)
DX: K25.4 Chronic or unspecified gastric ulcer with hemorrhage (principal); I21.4 Non-ST elevation (NSTEMI) myocardial infarction; A04.8 Other specified bacterial intestinal infections; E11.9 Type 2 diabetes mellitus without complications; I10 Essential (primary) hypertension; D72.819 Decreased white blood cell count, unspecified; D62 Acute posthemorrhagic anemia; E87.70 Fluid overload, unspecified; K29.51 Unspecified chronic gastritis with bleeding; E78.5 Hyperlipidemia, unspecified; Z86.73 Personal history of transient ischemic attack (TIA), and cerebral infarction without residual deficits; K76.9 Liver disease, unspecified; I25.10 Atherosclerotic heart disease of native coronary artery without angina pectoris; M25.472 Effusion, left ankle
CPT/HCPCS: 36415; 36430; 71010; 72100; 72170; 73610; 74176; 74178; 74183; 80048; 80053; 80061; 80202; 81003; 82105; 82378; 82550; 82553; 82607; 82668; 82728; 82962; 83036; 83540; 83615; 83690; 83735; 83880; 84145; 84153; 84154; 84155; 84165; 84439; 84484; 84560; 85014; 85018; 85025; 85045; 85610; 85651; 85730; 86301; 86304; 86850; 86900; 86901; 86920; 87070; 87086; 88305; 88312; 93005; 93306; 94640; 94664; 96374; 96375; 97110; 97116; 97162; 97530; J1940; C9113; J0702; J1815; J1956; J2250; J2405; J2916; J2920; J3370; J3475; J3480; J7030; J7040; J7042; J7050; P9016; Q4081; Q9967